=== PATIENT | male | born 1945 | race Caucasian/White ===

== ENCOUNTER 2017-09-05 13:31 | Inpatient (IN) | payer MEDICAID, OTHER ==
[~2017-09-05] VITALS: Ht 165.1 cm; Wt 65.9 kg
--- NOTE | 2017-09-05 16:33 | ERA ---
ER Documentation Chief Complaint Date/Time DATE: 09/05/17 TIME: 16:33 Chief Complaint BROUGHT BY DAUGHTER WITH BS 545, FEVER AND TACHYCARDIA HPI The patient is a 72-year-old male, presenting to the ER because of high blood glucose, fever, tachycardia, generalized weakness today. The history is obtained from the daughter. He denies fever, chills, neck pain, chest pain, abdominal pain, vomiting, dysuria, diarrhea. He had a mechanical fall this morning because of bilateral knee weakness.He complains of right shoulder pain and right knee pain He does not smoke, drinks socially Past medical history: Diabetes mellitus Past surgical history: None ROS All systems reviewed and are negative except as per history of present illness. Allergies Allergies: Coded Allergies: No Known Allergy (Unverified , 09/05/17) Physical Exam Vitals Vital Signs Date Time Temp Pulse Resp B/P Pulse Ox O2 Delivery O2 Flow Rate FiO2 09/05/17 17:28 103.0 119 18 156/81 98 Room Air 09/05/17 14:12 102.0 112 20 139/69 95 Physical Exam Const: No acute distress.Unkempt Head: Atraumatic. Eyes: Normal Conjunctiva. ENT: Normal External Ears, Nose and Mouth. Neck: Full range of motion. No meningismus. Resp: Clear to auscultation bilaterally. Cardio: Regular Tachycardic Abd: Soft, non distended, normal bowel sounds, non tender. Skin: No petechiae or rashes. Back: No midline or flank tenderness. Ext: No cyanosis, or edema.Right shoulder and right knee with limited range of motion due to tenderness Neur: Awake and alert. No focal deficit Psych: Normal Mood and Affect. Result Diagram: 09/05/17 1710 09/05/17 1710 Results 24 hrs Laboratory Tests Test 09/05/17 13:56 09/05/17 16:38 09/05/17 16:54 09/05/17 17:10 Bedside Glucose 545mg/dL 466mg/dL Blood Gas Specimen Source Blood arterial Arterial Blood Date Drawn 09/05/2017 4:58:22 PM Arterial Blood pH (Temp corrected) 7.447 Arterial Blood pCO2 (Temp correct) 23.5mmhg Arterial Blood pO2 (Temp corrected) 72.1mmHG Arterial Blood HCO3 15.9mmol/L Arterial Blood Base Excess -6.2mmol/L Arterial Blood Oxygen Saturation 95.2mmHG Brando Test ACCEPTAB Arterial Blood Gas Puncture Site Left Radial Arterial Blood Carboxyhemoglobin 0.3% Arterial Blood Methemoglobin 0.1% Blood Gas A-a O2 Differential 49.5mmHg Oxyhemoglobin Percent 94.8% Total Hemoglobin 13.9g/dl Blood Gas Temperature 37.0C Blood Gas Modality ROOM AIR FiO2 21.0% Blood Gas Notified Whom [place] Blood Gas Notified Time 09/05/2017 5:03:04 PM White Blood Count 25.210^3/ul Red Blood Count 4.2010^6/ul Hemoglobin 13.1g/dl Hematocrit 36.9% Mean Corpuscular Volume 87.9fl Mean Corpuscular Hemoglobin 31.2pg Mean Corpuscular Hemoglobin Concent 35.5g/dl Red Cell Distribution Width 13.2% Platelet Count 67413^3/UL Mean Platelet Volume 11.7fl Neutrophils % % Segmented Neutrophils % (Manual) 83% Band Neutrophils % (Manual) 4% Lymphocytes % % Lymphocytes % (Manual) 2% Monocytes % % Monocytes % (Manual) 11% Eosinophils % % Basophils % % Nucleated Red Blood Cells % 0.0/100WBC Neutrophils # 10^3/ul Neutrophils # (Manual) 21.210^3/ul Band Neutrophils # 1.010^3/ul Absolute Lymphocytes (Manual) 0.510^3/ul Lymphocytes # 10^3/ul Monocytes # 10^3/ul Absolute Monocytes (Manual) 2.710^3/ul Eosinophils # 10^3/ul Basophils # 10^3/ul Nucleated Red Blood Cells # 10^3/ul Platelet Estimate NORMAL Prothrombin Time 14.9Sec Prothrombin Time Ratio 1.2 INR International Normalized Ratio 1.16 Activated Partial Thromboplast Time 38.9Sec Sodium Level 119mmol/L Potassium Level 5.0mmol/L Chloride Level 85mmol/L Carbon Dioxide Level 20mmol/L Anion Gap 19 Blood Urea Nitrogen 31mg/dl Creatinine 1.16mg/dl Glucose Level 518mg/dl Calcium Level 8.7mg/dl Phosphorus Level 3.0mg/dl Magnesium Level 1.7mg/dl Total Bilirubin 0.4mg/dl Direct Bilirubin 0.00mg/dl Indirect Bilirubin 0.4mg/dl Aspartate Amino Transf (AST/SGOT) 41IU/L Alanine Aminotransferase (ALT/SGPT) 42IU/L Alkaline Phosphatase 152IU/L Troponin I 0.022ng/ml Total Protein 7.3g/dl Albumin 3.7g/dl Globulin 3.60g/dl Albumin/Globulin Ratio 1.02 Test 09/05/17 18:01 09/05/17 18:22 Lactic Acid Level 2.9mmol/L Bedside Urine pH (LAB) 5.0 Bedside Urine Protein (LAB) 2+ Bedside Urine Glucose (UA) 0.50% Bedside Urine Ketones (LAB) 2+ Bedside Urine Blood 3+ Bedside Urine Nitrite (LAB) Negative Bedside Urine Leukocyte Esterase (L Negative Current Medications Medications (Trade) Dose Ordered Sig/Parker Route PRN Reason Start Time Stop Time Status Last Admin Dose Admin Sodium Chloride (NS) 2,110 ml @ 2,110 mls/hr BOLUS X1 ONCE IV 09/05/17 17:00 09/05/17 17:59 DC 09/05/17 17:27 Acetaminophen 650 mg 650 mg ONCE ONCE PO 09/05/17 17:00 09/05/17 17:01 DC 09/05/17 17:27 Piperacillin Sod/ Tazobactam Sod 100 ml @ 200 mls/hr ONCE ONCE IVPB 09/05/17 18:00 09/05/17 18:29 DC Vancomycin HCl (Vancocin) 250 ml @ 125 mls/hr ONCE IVPB 09/05/17 18:00 09/05/17 19:59 Insulin Human Lispro (Humalog) 14 unit ONCE STAT SC 09/05/17 17:56 09/05/17 18:28 DC Procedures/[place] [address] Radiology Main Line: [phone] DIAGNOSTIC IMAGING REPORT Patient: BECKIE GILBERT : 1945 Age: 72 Sex: M MR #: [id number] DOS: 09/05/17 1638 Ordering MD: CHADWICK ADAN MD Location: E/R Room/Bed: PROCEDURE: XR Chest. CLINICAL INDICATION: Possible Sepsis TECHNIQUE: Single frontal view of the chest was obtained. COMPARISON: None available FINDINGS: The cardiomediastinal silhouette is normal size. Pulmonary vasculature is within normal limits. There are probable small calcified granulomas in the right lower lung. There is mild aortic calcification.. No signs of pleural fluid or pneumothorax are seen. The osseous structures and soft tissues are unremarkable. IMPRESSION: Mild aortic calcification. No visualized consolidation or edema. Probable calcified granulomas in the right lower lung. RPTAT: DD .Anthony Denney MD, MD Date Time Electronically viewed and signed by .Anthony Denney MD, on 09/05/2017 17:28 .T/ CC: CHADWICK ADAN MD EKG: Read by emergency physician Rate/Rhythm: Sinus tachycardia 130 beats/min QRS, ST, T-waves: No ST elevation, no T inversion Impression: Abnormal MEDICAL MAKING DECISION: The patient is a 72-year-old, presenting with acute severe sepsis, acute hyperosmolar hyperglycemic syndrome, acute hyponatremia ( corrected sodium is 126). He was treated with Tylenol for fever, normosaline 30 mL/kg IV, Zosyn IV, vancomycin IV for acute severe sepsis, 14 units of Humalog subcutaneously for acute HHS with good response. Admit MDM: Patient's infectious symptoms have not stabilized and the patient is at risk of rapid decompensation. The patient will be admitted for careful hydration, antibiotic therapy, and infectious source control. Severe Sepsis criteria: Infectious source: unknown End organ damage indicated by: Lactate > 2.0 mmol/L Sepsis Management: Time of recognition of severe sepsis/septic shock:6:05 pm Within 3 hours of recognition: Blood cultures x 2 before broad-spectrum antibiotics: Yes 30 ml/kg NS bolus completed Initial lactate 2,9 Repeat lactate pending Critical Care: Critical care time 35 minutes excluding billable procedure Emergent fluid management while maintaining close respiratory support. Provision of immediate and broad-spectrum antibiotic therapy. Simultaneous assessment for possible sources in order to direct targeted therapy. Consideration for invasive and chemical support to prevent cardiopulmonary collapse. Septic Shock Assessment: Any lactic acid > 4.0 no Persistent hypotension (SBP < 90 or 40 mmHg drop, MAP < 65) despite 30 mL/kg IV fluid bolusno Departure Diagnosis: Primary Impression: Severe sepsis Additional Impressions: Hyperglycemic hyperosmolar nonketotic coma Acute hyponatremia Anemia Condition: Stable Additional Instructions: I discussed the findings with the patient. I discussed the patient with the on- call hospitalist Dr. Duran at 6:20 PM who was made aware of the lab, the treatment, the patient condition. The patient is admitted to laboratory The patient's blood pressure was elevated (>120/80) but appears stable without evidence of hypertension emergency or urgency. The patient was counseled about the risks of hypertension and urged to pursue outpatient monitoring and therapy within a week with their primary care physician. CHADWICK ADAN MD Sep 05, 2017 16:33
[2017-09-05] MEDS ORDERED: SOD CHLORIDE 0.9% 2,110 ML IV ONE (17:00)
[2017-09-05] MEDS ORDERED: ACETAMINOPHEN 325 MG TAB PO ONE (17:00)
[2017-09-05 17:03] LABS: AADO2 Arterial 49.5 mmHg (7.0-24.0); Allen Test ACCEPTAB; Arterial Base Excess -6.2 mmol/L (-3.0-3); Arterial COHb 0.3 % (0.0-3.0); Arterial Fraction of Oxyhgb 94.8 % (93.0-99.0); Arterial HCO3 15.9 mmol/L (22.0-26.0); Arterial MetHb 0.1 % (0.0-1.5); Arterial Total Hemglobin 13.9 g/dl (12.0-18.0); MODE ROOM AIR
[2017-09-05 17:24] LABS: ABNORMAL IP MESSAGE 1; HEMATOCRIT 36.9 % (42.0-52.0); HEMOGLOBIN 13.1 g/dl (14.0-18.0); MEAN CORPUSCULAR HEMOGLOBIN 31.2 pg (29.0-33.0); MEAN CORPUSCULAR HGB CONC 35.5 g/dl (32.0-37.0); MEAN CORPUSCULAR VOLUME 87.9 fl (82.0-101.0); MEAN PLATELET VOLUME 11.7 fl (7.4-10.4); PLATELET COUNT 194 10^3/UL (140-415); POSITIVE DIFF @See below; RED CELL DISTRIBUTION WIDTH 13.2 % (11.5-14.5); WHITE BLOOD COUNT 25.2 10^3/ul (4.8-10.8)
--- NOTE | 2017-09-05 17:28 | RADRPT ---
PROCEDURE: XR Chest. CLINICAL INDICATION: Possible Sepsis TECHNIQUE: Single frontal view of the chest was obtained. COMPARISON: None available FINDINGS: The cardiomediastinal silhouette is normal size. Pulmonary vasculature is within normal limits. Th ere are probable small calcified granulomas in the right lower lung. There is mild aortic calcificat ion.. No signs of pleural fluid or pneumothorax are seen. The osseous structures and soft tissues are unre markable. IMPRESSION: Mild aortic calcification. No visualized consolidation or edema. Probable calcified granulomas in th e right lower lung. RPTAT: DD .Anthony Denney MD, Date Time Electronically viewed and signed by .Anthony Denney MD, on 09/05/2017 17:28 .T/
[2017-09-05 17:43] LABS: ALBUMIN 3.7 g/dl (3.3-4.9); ALBUMIN/GLOBULIN RATIO 1.02; BILIRUBIN,INDIRECT 0.4 mg/dl (0-1.1); BILIRUBIN,TOTAL 0.4 mg/dl (0.2-1.3); CALCIUM 8.7 mg/dl (8.4-10.2); CREATININE 1.16 mg/dl (0.61-1.24); MAGNESIUM 1.7 mg/dl (1.7-2.5); TOTAL PROTEIN 7.3 g/dl (6.1-8.1)
[2017-09-05 17:48] LABS: MONOCYTES % (M) 11 % (0-11); PLATELET ESTIMATE NORMAL
[2017-09-05 17:54] LABS: TROPONIN-I 0.022 ng/ml (0.00-0.12)
[2017-09-05] MEDS ORDERED: INSULIN LISPRO 100 UNIT/ML VIAL SC STA (17:56)
[2017-09-05] MEDS ORDERED: PIPER-TAZO 3.375 GM IV (PMX) 100 ML IVPB ONE (18:00)
[2017-09-05] MEDS ORDERED: VANCOMYCIN 1 GM (PMX) 250 ML IVPB SCH (18:00)
[2017-09-05 18:09] LABS: INR 1.16; PARTIAL THROMBOPLASTIN TIME 38.9 Sec (25.0-35.0); PROTIME 14.9 Sec (12.2-14.2); PT RATIO 1.2
[2017-09-05 18:15] LABS: URINE BLOOD (Dip) POC 3+ (NEGATIVE)
[2017-09-05] MEDS: SOD CHLORIDE 0.9% 1,000 ML IV SCH (18:31)
--- NOTE | 2017-09-05 18:33 | RADRPT ---
PROCEDURE: XR shoulder, right. CLINICAL INDICATION: pain TECHNIQUE: internal and external rotation views and scapular Y of the right shoulder were performe d. COMPARISON: None. FINDINGS: There is normal osseous mineralization and alignment. No fracture or osseous lesion is identified. T here is normal alignment of the glenohumeral and acromioclavicular joints. There is a mild acromiocl avicular degenerative change. The soft tissues are unremarkable. There are calcified granulomas in t he right lower lung. IMPRESSION: No visualized fracture or dislocation. Mild acromioclavicular degenerative change. RPTAT: DD .Anthony Denney MD, MD Date Time Electronically viewed and signed by .Anthony Denney MD, on 09/05/2017 18:33 .T/
--- NOTE | 2017-09-05 18:34 | RADRPT ---
PROCEDURE: XR Knee. CLINICAL INDICATION: pain TECHNIQUE: AP, lateral and oblique view of the right knee were obtained. The images reviewed on a PACS workstation. COMPARISON: None. FINDINGS: The bones appear intact, with no evidence of fracture, erosion, demineralization, or dislocation. Th e alignment of the femorotibial and patellofemoral joints appears normal. There is mild to moderate medial femoral tibial joint space narrowing. No evidence of effusion or soft tissue swelling is pres ent. There is peripheral arterial calcification. IMPRESSION: No visualized acute fracture or dislocation. Mild to moderate medial femoral tibial compartment dege nerative joint space narrowing. Peripheral vascular calcification. RPTAT: DD .Anthony Denney MD, MD Date Time Electronically viewed and signed by .Anthony Denney MD, on 09/05/2017 18:34 .T/
[2017-09-05] MEDS ORDERED: GLUCAGON 1 MG INJ IM PRN ×2 (19:00→21:00)
[2017-09-05] MEDS ORDERED: ONDANSETRON 4 MG INJ IV PRN (19:00)
[2017-09-05] MEDS ORDERED: ALBUTEROL/IPRATROPIUM (NEB) 3 ML AMP HHN PRN (19:00)
[2017-09-05] MEDS ORDERED: VANCOMYCIN IV PER PHARMACY XX SCH (19:00)
[2017-09-05] MEDS ORDERED: NA PHOSPHATE/BIPHOS 133 ML ENEMA PR PRN (19:00)
[2017-09-05] MEDS ORDERED: GLUCOSE GEL 15 GRAM TUBE BUCCAL PRN ×2 (19:00→21:00)
[2017-09-05] MEDS: INSULIN GLARGINE [LANtus] 3 ML PEN SC SCH ×2 (19:00→20:00)
[2017-09-05] MEDS ORDERED: GLUCOSE GEL 15 GRAM TUBE PO PRN ×4 (19:00→21:00)
[2017-09-05] MEDS ORDERED: DOCUSATE SODIUM 100 MG CAP PO PRN (19:00)
[2017-09-05] MEDS ORDERED: hydrALAzine 20 MG INJ IV PRN (19:00)
[2017-09-05] MEDS ORDERED: MAGNESIUM HYDROXIDE 30ML CUP PO PRN (19:00)
[2017-09-05] MEDS ORDERED: NITROGLYCERIN (SL) 0.4 MG TAB SL PRN (19:00)
[2017-09-05] MEDS ORDERED: LORAZEPAM 2 MG INJ IV PRN (19:00)
[2017-09-05] MEDS ORDERED: NACL 0.9% 3 ML SYG IV SCH (19:00)
[2017-09-05] MEDS ORDERED: DEXTROSE 50% 50 ML SYRINGE IV PRN ×4 (19:00→21:00)
[2017-09-05] MEDS: INSULIN ASPART [NOVOLOG] 3 ML PEN SC SCH (21:00)
[2017-09-05 21:18] VITALS: TEMP 99.9
[2017-09-05 21:35] VITALS: BP 144/70; PULSE 100; PULSE 120; RESP 18
[2017-09-05 21:37] VITALS: Ht 165.1 cm; Wt 65.9 kg
--- NOTE | 2017-09-05 22:13 | HP ---
DATE OF ADMISSION: 09/05/2017 CHIEF COMPLAINT: Weakness, fever. HISTORY OF PRESENT ILLNESS: A 72-year-old male, past medical history of type 2 diabetes and high cholesterol who was brought in by family because of weakness and fever. Apparently, the patient had hurt his right shoulder 2 days ago prior to admission after trying to pull at something, he has been complaining of right shoulder pain and also right knee pain. He has also been having positive chills, questionable palpitations, denies any fevers, no chest pain. No nausea, vomiting, no diarrhea. No constipation. No abdominal pain. No headaches or dizziness. When he came in, he was found to have multiple problems including a very low sodium of 119. His white count was elevated at 25.2 with sugars were elevated in the 500 range although the bicarb was low normal range. No significant gap noted. The patient appeared to be dehydrated as well and was given insulin, antibiotics and fluids in the ER. PAST MEDICAL HISTORY: As stated above. ALLERGIES: NO KNOWN DRUG ALLERGIES. MEDICATIONS: None. PAST SURGICAL HISTORY: None. SOCIAL HISTORY: Negative for smoking, drinking, IV drug abuse. PHYSICAL EXAMINATION: VITAL SIGNS: T-max 103.0, pulse 112-119, respirations 18-20, blood pressure 139 to 156 systolic over 69 to 81 diastolic, satting at 95 percent on room air. GENERAL: The patient is lying in bed, answering questions, but appears lethargic. Family at bedside. HEENT: Pupils equal, round, react to light. EOMS intact. NECK: Supple. No thyromegaly. LUNGS: Clear to auscultation bilaterally. CARDIOVASCULAR: Tachycardic heart rate. No rubs or gallops. ABDOMEN: Soft, nontender, nondistended. Normal bowel sounds. No rebound or guarding. MUSCULOSKELETAL: No lower extremity edema bilaterally. NEUROLOGIC: No focal deficits. LABS: WBC 25.2, hemoglobin 13.1, hematocrit 36.9, platelets 194, sodium 119, potassium 5.0 chloride 85, CO2 20, BUN 31, creatinine 1.16, glucose 518. UA shows 2+ ketones, but negative nitrites, negative leukocyte esterase. ABG was performed, shows pH 7.44, pCO2 23, PaO2 of 72, bicarb of 15.9. There was a right knee x-ray that shows no acute fractures or dislocations. There is mild to moderate medial femoral tibial compartment degenerative joint space narrowing and peripheral vascular calcification. There was a shoulder x-ray that shows no visualized fracture or dislocation but there is mild acromioclavicular degenerative changes and there was a chest x-ray that shows mild aortic calcification. No visualized consolidation or edema, probable calcified granuloma in the right lower lung. ASSESSMENT AND PLAN: 72-year-old male coming in with severe sepsis, hyponatremia, and very elevated blood sugars. 1. Severe sepsis, again unclear source of patient's fevers and leukocytosis as the UA appears to be negative, chest x-ray does not give a clear indication of pneumonia. In any event, we will admit the patient. Check TSH, A1c, and lipid panel. Put him on broad-spectrum antibiotics for now, try to find a source. We will get an ID consult. Give him IV fluids as well. 2. Hyponatremia. Will give him aggressive normal saline IV fluid hydration. Monitor sodium levels very carefully. 3. Elevated blood sugars. Again, check A1c, put him on Lantus 25 units and also monitor insulin sliding scale. As well follow up A1c. 4. History of diabetes. Again, see number 3. 5. High cholesterol. Check lipid panel as well. 6. Deep vein thrombosis prophylaxis. Heparin subcutaneous. 7. Consider PT consult as well. Dictated By: Malachi Duran MD /[email or web address] /Document#: [id number]
[2017-09-05] MEDS: HEPARIN 5,000 UNIT/0.5 ML VIAL SC SCH (23:09)
[2017-09-05] MEDS: PIPER-TAZO 3.375 GM IV (PMX) 100 ML IVPB SCH (23:59)
[2017-09-06] VITALS (13 sets, daily range): BP systolic 86–164; BP diastolic 54–82; PULSE 81–120; RESP 17–20
[2017-09-06] MEDS ORDERED: SOD CHLORIDE 0.9% 500 ML IV ONE
[2017-09-06] MEDS: PIPER-TAZO 3.375 GM IV (PMX) 100 ML IVPB SCH ×4 (00:01→23:24)
[2017-09-06] MEDS: INSULIN ASPART [NOVOLOG] 3 ML PEN SC SCH ×8 (01:00→21:00)
[2017-09-06] MEDS: ACCU-CHEK XX SCH (02:00)
[2017-09-06] MEDS: SOD CHLORIDE 0.9% 1,000 ML IV SCH ×4 (03:02→23:24)
[2017-09-06 03:30] LABS: ADD UMIC YES; UR AMORPHOUS CRYSTAL FEW /HPF (NONE SEEN); UR ASCORBIC ACID NEGATIVE (NEGATIVE); UR BACTERIA FEW /HPF (NONE SEEN); UR BILIRUBIN (Dip) NEGATIVE (NEGATIVE); UR BLOOD (Dip) 3+ mg/dL (NEGATIVE); UR BUDDING YEAST MODERATE /HPF (NONE SEEN); UR CLARITY CLOUDY (CLEAR); UR COLOR YELLOW (YELLOW); UR GLUCOSE (Dip) 3+ mg/dL (NEGATIVE); UR KETONES (Dip) TRACE mg/dL (NEGATIVE); UR LEUKOCYTE ESTERASE (Dip) NEGATIVE Leu/ul (NEGATIVE); UR NITRITE (Dip) NEGATIVE (NEGATIVE); UR RBC 3 /HPF (0-5); UR SPECIFIC GRAVITY (Dip) 1.012 (1.003-1.030); UR TOTAL PROTEIN (Dip) 2+ mg/dl (NEGATIVE); UR UROBILINOGEN (Dip) NEGATIVE (NEGATIVE)
[2017-09-06] MEDS: PANTOPRAZOLE (EC) 40 MG TAB PO SCH (05:16)
[2017-09-06] MEDS: morphine 2 MG INJ IV PRN ×4 (07:07→19:56)
[2017-09-06 07:26] LABS: BASOPHILS % 0.1 % (0.0-2.0); HEMATOCRIT 33.7 % (42.0-52.0); HEMOGLOBIN 11.4 g/dl (14.0-18.0); LYMPHOCYTES # 0.7 10^3/ul (0.8-2.9); LYMPHOCYTES % 3.4 % (15.0-51.0); MEAN CORPUSCULAR HEMOGLOBIN 29.5 pg (29.0-33.0); MEAN CORPUSCULAR HGB CONC 33.8 g/dl (32.0-37.0); MEAN CORPUSCULAR VOLUME 87.1 fl (82.0-101.0); MEAN PLATELET VOLUME 10.2 fl (7.4-10.4); MONOCYTE # 1.5 10^3/ul (0.3-0.9); MONOCYTES % 7.2 % (0.0-11.0); NEUTROPHIL # 18.1 10^3/ul (1.6-7.5); NEUTROPHILS % 88.6 % (39.0-77.0); PLATELET COUNT 200 10^3/UL (140-415); POSITIVE DIFF @See below; RED BLOOD COUNT 3.87 10^6/ul (4.70-6.10); RED CELL DISTRIBUTION WIDTH 13.2 % (11.5-14.5); WHITE BLOOD COUNT 20.5 10^3/ul (4.8-10.8)
[2017-09-06 07:54] LABS: CHOL/HDL RATIO 3.8 RATIO
[2017-09-06 07:58] LABS: CALCIUM 7.7 mg/dl (8.4-10.2); CREATININE 1.14 mg/dl (0.61-1.24); MAGNESIUM 1.7 mg/dl (1.7-2.5); PHOSPHORUS 2.3 mg/dl (2.5-4.9); POTASSIUM 3.7 mmol/L (3.5-5.1)
[2017-09-06 08:21] LABS: THYROID STIMULATING HORMONE 1.33 MIU/L (0.465-4.680)
[2017-09-06] MEDS: HEPARIN 5,000 UNIT/0.5 ML VIAL SC SCH ×2 (08:23→21:38)
[2017-09-06] MEDS: ACETAMINOPHEN 325 MG TAB PO PRN (08:44)
--- NOTE | 2017-09-06 11:31 | PN ---
Date/Time of Note Date/Time of Note DATE: 09/06/17 TIME: 11:26 Assessment/Plan VTE Prophylaxis VTE Prophylaxis Intervention: heparin Lines/Catheters IV [facility] [place] [facility] Urinary Cath still in place: No Assessment/Plan Chief Complaint/Hosp Course ASSESSMENT AND PLAN: 72-year-old male coming in with severe sepsis, hyponatremia, and very elevated blood sugars. 1. Severe sepsis, again unclear source of patient's fevers and leukocytosis as the UA appears to be negative, chest x-ray does not give a clear indication of pneumonia. However blood cultures are 2 out of 2 bottles positive for gram-positive cocci. -Continue broad-spectrum antibiotics -Pending ID consult. Continue IV fluids as well. 2. Hyponatremia - improved (119-> 127) -Continue aggressive normal saline IV fluid hydration. Monitor sodium levels very carefully. 3. Elevated blood sugars -A1c equals 12.9 -Continue Lantus 25 units and insulin sliding scale. -Also add short acting insulin 8 units with meals 4. History of diabetes. Again, see number 3. 5. High cholesterol. Follow-up lipid panel as well. 6. Deep vein thrombosis prophylaxis. Heparin subcutaneous. 7. Follow-up PT consult as well. Problems: Subjective 24 Hr Interval Summary Free Text/Dictation Patient had temperature 100.0 last night. Otherwise no acute events overnight. Exam/Review of Systems Vital Signs Vitals Vital Signs Date Time Temp Pulse Resp B/P Pulse Ox O2 Delivery O2 Flow Rate FiO2 09/06/17 09:43 97.4 96 09/06/17 08:25 Nasal Cannula 2.0 09/06/17 07:17 18 99/56 100 Intake and Output 09/05/17 09/05/17 09/06/17 15:00 23:00 07:00 Intake Total 500 ml Output Total 800 ml Balance -300 ml Exam GENERAL: The patient is lying in bed, answering questions HEENT: Pupils equal, round, react to light. EOMS intact. NECK: Supple. No thyromegaly. LUNGS: Clear to auscultation bilaterally. CARDIOVASCULAR: S1, S2 heard, no rubs or gallops. ABDOMEN: Soft, nontender, nondistended. Normal bowel sounds. No rebound or guarding. MUSCULOSKELETAL: No lower extremity edema bilaterally. NEUROLOGIC: No focal deficits. Results Result Diagram: 09/06/1770009/06/1701 Results 24 hrs Laboratory Tests Test 09/05/17 13:56 09/05/17 16:38 09/05/17 16:54 09/05/17 17:10 Bedside Glucose 545 *H 466 *H Blood Gas Specimen Source Blood arterial Arterial Blood Date Drawn 09/05/2017 4:58:22 PM Arterial Blood pH (Temp corrected) 7.447 Arterial Blood pCO2 (Temp correct) 23.5 L Arterial Blood pO2 (Temp corrected) 72.1 L Arterial Blood HCO3 15.9 L Arterial Blood Base Excess -6.2 L Arterial Blood Oxygen Saturation 95.2 Brando Test ACCEPTAB Arterial Blood Gas Puncture Site Left Radial Arterial Blood Carboxyhemoglobin 0.3 Arterial Blood Methemoglobin 0.1 Blood Gas A-a O2 Differential 49.5 H Oxyhemoglobin Percent 94.8 Total Hemoglobin 13.9 Blood Gas Temperature 37.0 Blood Gas Modality ROOM AIR FiO2 21.0 Blood Gas Notified Whom [place] Blood Gas Notified Time 09/05/2017 5:03:04 PM White Blood Count 25.2 H Red Blood Count 4.20 L Hemoglobin 13.1 L Hematocrit 36.9 L Mean Corpuscular Volume 87.9 Mean Corpuscular Hemoglobin 31.2 Mean Corpuscular Hemoglobin Concent 35.5 Red Cell Distribution Width 13.2 Platelet Count 194 Mean Platelet Volume 11.7 H Neutrophils % Segmented Neutrophils % (Manual) 83 H Band Neutrophils % (Manual) 4 Lymphocytes % Lymphocytes % (Manual) 2 L Monocytes % Monocytes % (Manual) 11 Eosinophils % Basophils % Nucleated Red Blood Cells % 0.0 Neutrophils # Neutrophils # (Manual) 21.2 H Band Neutrophils # 1.0 H Absolute Lymphocytes (Manual) 0.5 L Lymphocytes # Monocytes # Absolute Monocytes (Manual) 2.7 H Eosinophils # Basophils # Nucleated Red Blood Cells # Platelet Estimate NORMAL Prothrombin Time 14.9 H Prothrombin Time Ratio 1.2 INR International Normalized Ratio 1.16 Activated Partial Thromboplast Time 38.9 H Sodium Level 119 *L Potassium Level 5.0 Chloride Level 85 L Carbon Dioxide Level 20 L Anion Gap 19 H Blood Urea Nitrogen 31 H Creatinine 1.16 Glucose Level 518 *H Calcium Level 8.7 Phosphorus Level 3.0 Magnesium Level 1.7 Total Bilirubin 0.4 Direct Bilirubin 0.00 Indirect Bilirubin 0.4 Aspartate Amino Transf (AST/SGOT) 41 Alanine Aminotransferase (ALT/SGPT) 42 Alkaline Phosphatase 152 H Troponin I 0.022 Total Protein 7.3 Albumin 3.7 Globulin 3.60 H Albumin/Globulin Ratio 1.02 Test 09/05/17 18:01 09/05/17 18:22 09/05/17 19:14 09/05/17 19:46 Lactic Acid Level 2.9 *H 1.5 Bedside Urine pH (LAB) 5.0 Bedside Urine Protein (LAB) 2+ H Bedside Urine Glucose (UA) 0.50% H Bedside Urine Ketones (LAB) 2+ H Bedside Urine Blood 3+ H Bedside Urine Nitrite (LAB) Negative Bedside Urine Leukocyte Esterase (L Negative Bedside Glucose 359 H Free Thyroxine 0.93 Test 09/05/17 21:02 09/05/17 22:24 09/05/17 22:50 09/06/17 00:01 Bedside Glucose 259 H 229 H Lactic Acid Level 3.7 *H 1.7 Test 09/06/17 00:30 09/06/17 01:16 09/06/17 05:10 09/06/17 06:57 Urine Color YELLOW Urine Clarity CLOUDY A Urine pH 5.0 Urine Specific Beat[place] 1.012 Urine Ketones TRACE A Urine Nitrite NEGATIVE Urine Bilirubin NEGATIVE Urine Urobilinogen NEGATIVE Urine Leukocyte Esterase NEGATIVE Urine Microscopic RBC 3 Urine Microscopic WBC 5 Urine Amorphous Crystals FEW A Urine Bacteria FEW A Urine Yeast (Budding) MODERATE A Urine Hemoglobin 3+ H Urine Glucose 3+ H Urine Total Protein 2+ H Bedside Glucose 138 113 Hemoglobin A1c 12.9 H Test 09/06/17 07:01 09/06/17 08:43 White Blood Count 20.5 H Red Blood Count 3.87 L Hemoglobin 11.4 L Hematocrit 33.7 L Mean Corpuscular Volume 87.1 Mean Corpuscular Hemoglobin 29.5 Mean Corpuscular Hemoglobin Concent 33.8 Red Cell Distribution Width 13.2 Platelet Count 200 Mean Platelet Volume 10.2 Neutrophils % 88.6 H Lymphocytes % 3.4 L Monocytes % 7.2 Eosinophils % 0.0 Basophils % 0.1 Nucleated Red Blood Cells % 0.0 Neutrophils # 18.1 H Lymphocytes # 0.7 L Monocytes # 1.5 H Eosinophils # 0.0 Basophils # 0.0 Nucleated Red Blood Cells # 0.0 Sodium Level 127 L Potassium Level 3.7 Chloride Level 100 # Carbon Dioxide Level 24 Anion Gap 7 #L Blood Urea Nitrogen 26 H Creatinine 1.14 Glucose Level 110 # Lactic Acid Level 1.3 Calcium Level 7.7 L Phosphorus Level 2.3 L Magnesium Level 1.7 Triglycerides Level 96 Cholesterol Level 84 L LDL Cholesterol, Calculated 43 HDL Cholesterol 22 L Cholesterol/HDL Ratio 3.8 Thyroid Stimulating Hormone (TSH) 1.330 Bedside Glucose 124 Medications Medications Current Medications Ondansetron HCl (Zofran Inj) 4 mg Q6H PRN IV NAUSEA AND/OR VOMITING; Start 09/05/17 at 19:00 Acetaminophen (Tylenol Tab) 650 mg Q6H PRN PO PAIN LEVEL 1-3 OR FEVER Last administered on 09/06/17 08:44; Admin Dose 650 MG; Start 09/05/17 at 19:00 Acetaminophen/ Hydrocodone Bitart ([place] (5/325)) 1 tab Q6H PRN PO MODERATE PAIN LEVEL 4-6; Start 09/05/17 at 19:00 Morphine Sulfate (morphine) 2 mg Q4H PRN IV SEVERE PAIN LEVEL 7-10 Last administered on 09/06/17 07:07; Admin Dose 2 MG; Start 09/05/17 at 19:00 Docusate Sodium (Colace) 100 mg Q12H PRN PO CONSTIPATION; Start 09/05/17 at 19: 00 Magnesium Hydroxide (Milk Of Mag) 30 ml DAILY PRN PO CONSTIPATION; Start at 19:00 Sodium Biphosphate/ Sodium Phosphate (Fleet Enema) 133 ml DAILY PRN [place] CONSTIPATION; Start 09/05/17 at 19:00 Pantoprazole (Protonix Tab) 40 mg DAILY@06 PO Last administered on 09/06/17 05:16; Admin Dose 40 MG; Start 09/06/17 at 06:00 Heparin Sodium (Porcine) (Heparin (5000 Units/0.5 ml)) 5,000 unit Q12 SC Last administered on 09/06/17 08:23; Admin Dose 5,000 UNIT; Start 09/05/17 at 21:00 Lorazepam 0.5 mg 0.5 mg Q6H PRN IV ANXIETY; Start 09/05/17 at 19:00 Sodium Chloride 1,000 ml @ 100 mls/hr Q10H IV Last administered on 09/06/17 08:24; Admin Dose 100 MLS/HR; Start 09/05/17 at 18:31 Piperacillin Sod/ Tazobactam Sod (Zosyn 3.375gm/ 100 ml (Pmx)) 100 ml @ 200 mls /hr Q6 IVPB Last administered on 09/06/17 00:01; Admin Dose 200 MLS/HR; Start 09/06/17 at 00:00 Vancomycin HCl (Vanco Iv Per Pharmacy) VANCOMYCIN PER PHARMACY NOTE XX ; Start 09/05/17 at 19:00 Hydralazine HCl (Apresoline) 10 mg Q6H PRN IV ELEVATED BLOOD PRESSURE; Start 09/05/17 at 19:00 Clonidine (Catapres) 0.1 mg Q6H PRN PO ELEVATED BLOOD PRESSURE; Start 09/05/17 at 19:00 Nitroglycerin (Nitroglycerin (Sl Tab) 0.4 Mg) 1 tab Q5M PRN SL ANGINA; Start 09/05/17 at 19:00 Diagnostic Test (Pha) (Accu-Chek) 1 ea 02 XX ; Start 09/06/17 at 02:00 Insulin Aspart (Novolog Insulin Pen) NOVOLOG *MODERATE* ALGORI... Q4 SC Last administered on 09/05/17 21:00; Admin Dose 6 UNIT; Start 09/05/17 at 21:00 Insulin Glargine (Lantus) 25 unit DAILY@20 SC Last administered on 09/05/17 20 :00; Admin Dose 25 UNIT; Start 09/05/17 at 19:00 Miscellaneous Information 1 ea NOTE XX ; Start 09/05/17 at 21:00 Glucose (Glutose) 15 gm Q15M PRN PO DECREASED GLUCOSE; Start 09/05/17 at 21:00 Glucose (Glutose) 22.5 gm Q15M PRN PO DECREASED GLUCOSE; Start 09/05/17 at 21: 00 Dextrose (D50w Syringe) 25 ml Q15M PRN IV DECREASED GLUCOSE; Start 09/05/17 at 21:00 Dextrose (D50w Syringe) 50 ml Q15M PRN IV DECREASED GLUCOSE; Start 09/05/17 at 21:00 Glucagon (Glucagen) 1 mg Q15M PRN IM DECREASED GLUCOSE; Start 09/05/17 at 21:00 Glucose 15 gm 15 gm Q15M PRN BUCCAL DECREASED GLUCOSE; Start 09/05/17 at 21:00 Vancomycin HCl 1.25 gm/Sodium Chloride 250 ml @ 83.333 mls/ hr Q24H IVPB ; Start 09/06/17 at 18:00 Potassium Phosphate 20 meq/ Sodium Chloride 254.5455 ml @ 63.636 m... ONCE ONCE IVPB ; Start 09/06/17 at 11:30; Stop 09/06/17 at 15:29; Status UNV Fluconazole/ Sodium Chloride (Diflucan 100 Mg/ NS (Pmx)) 50 ml @ 50 mls/hr Q24H IVPB ; Start 09/06/17 at 11:30; Status NIKV KULDEEP SALDIVAR Sep 06, 2017 11:31
[2017-09-06] MEDS ORDERED: POTASSIUM PHOSPHATE 20 MEQ in SOD CHLORIDE 0.9% 250 ML IVPB ONE (12:00)
[2017-09-06] MEDS: FLUCONAZOLE 100 MG/NS (PMX) 50 ML IVPB SCH (12:31)
--- NOTE | 2017-09-06 16:30 | CONS ---
DATE OF ADMISSION: 09/05/2017 DATE OF CONSULTATION: 09/06/2017 INFECTIOUS DISEASE CONSULTATION REASON FOR CONSULTATION: Antibiotic management. HISTORY OF PRESENT ILLNESS: Alexi Lara is a 72-year-old male who was brought in with fever and weakness and is being seen for antibiotic management. Past problems include: 1. Adult-onset diabetes mellitus. 2. Hypercholesterolemia. Acutely, the patient hurt his right shoulder 2 days prior to admission and has been complaining of r ight shoulder and knee pain. He has positive chills. No nausea, vomiting. No constipation or abdo mirlande pain; however, on admission, his sodium was very low at 119, white count was 25.2 and his suga rs were greater than 500. He appeared to be dehydrated, was given insulin, antibiotics and fluids. On admission, his white count was 25.2, H and H of 13.1 and 36.9, platelet count 194,000, sodium 11 9, potassium 5.0, BUN and creatinine was 31/1.16. Urinalysis shows 2+ ketones, negative nitrites, n egative leukocyte esterase. There was a right knee x-ray that shows no acute fractures or dislocati ons. There is [id number] medial femoral tibial compartment degenerative joint space narrowing and peripheral vascular calcifications. Shoulder x-ray shows no visualized fracture or dislocation . PAST MEDICAL HISTORY: Operations as outlined. FAMILY HISTORY: Noncontributory. SOCIAL HISTORY: Does not smoke, drink or abuse drugs. ALLERGIES: NONE TO PENICILLIN, SULFA OR FOODS. MEDICATIONS: Per chart. REVIEW OF SYSTEMS: As per HPI. PHYSICAL EXAMINATION: GENERAL: The patient is an elderly appearing male who is awake, responsive, in no acute distress. VITAL SIGNS: Stable. T-max 103. SKIN: Without generalized rash. HEENT: Within normal limits. NECK: Supple. LYMPH NODES: None palpable. CHEST: Decreased breath sounds at the bases. HEART: Without murmur or gallop. ABDOMEN: Soft, nontender, without organosplenomegaly or masses. EXTREMITIES: Without cyanosis, clubbing or edema. RECTAL AND GENITAL: Deferred. NEUROLOGIC: No focal neurological abnormalities. IMPRESSION AND PLAN: The patient comes in now with severe sepsis with a temperature of 103, white c ount of 25.2 and severe hyponatremia. His urinalysis is negative. Chest x-ray does not give a kaity r indication of pneumonia, hyponatremia, rule out inappropriate antidiuretic hormone secretion. He was given aggressive normal saline. He was placed on Lantus insulin for his diabetes. Microbiology is now growing gram-positive cocci in pairs and clusters, consistent with most likely pneumonia, al though there is no clear-cut source of pneumonia. We have to consider the possibility of endocardit is as well. We will see if that is ordered, if not, we will do so. White count today is 20.5. The patient is on vancomycin and Zosyn. I will dictate my findings to the hospitalist. Dictated By: BJ HORNE MD, JD/NTS Conf#: [id number] DID#: [id number] CC: KULDEEP SALDIVAR;*Van*
[2017-09-06] MEDS: VANCOMYCIN 1.25 GM in SOD CHLORIDE 0.9% 250 ML IVPB SCH (18:36)
--- NOTE | 2017-09-06 21:24 | RADRPT ---
PROCEDURE: Noncontrast CT examination of the right shoulder. CLINICAL INDICATION: Severe right shoulder pain. TECHNIQUE: Noncontrast CT examination of the right shoulder, with axial, sagittal and coronal refo rmatted images. CTDI: 32.50 and DLP: 712.92. COMPARISON: Plain film examination of the right shoulder dated 09/05/2017. FINDINGS: Likely chronic tears of the posterior glenoid labrum with dystrophic calcifications. Mild elevation of the humeral head in the glenoid fossa suggests sequela of a chronic rotator cuff tear. There is a joint effusion. There is extensive subcutaneous edema and fluid over the right shoulder, otherwise nonspecific. A contrast enhanced MRI examination of the right shoulder may be of further use. There is no acute fracture or dislocation. Mild pleural effusion in the partially visualized right hemithorax. Small amount of intravenous air is seen over the anterior right shoulder, perhaps representing the s equela of IV access. IMPRESSION: 1. Likely remote rotator cuff tear. 2. Likely remote tears of the posterior glenoid labrum, with dystrophic calcifications. 3. Joint effusion with extensive subcutaneous edema and subcutaneous fluid over the right shoulder. 4. A contrast enhanced MRI examination of the right shoulder may be of further use. 5. There is no evident acute fracture. RPTAT: [facility]U Physician Allan Date Time Electronically viewed and signed by Physician Allan on 09/06/2017 21:23 RS/
[2017-09-06] MEDS: INSULIN GLARGINE [LANtus] 3 ML PEN SC SCH (21:32)
[2017-09-07] VITALS (12 sets, daily range): BP systolic 98–122; BP diastolic 57–78; PULSE 78–100; RESP 16–19
[2017-09-07] MEDS: INSULIN ASPART [NOVOLOG] 3 ML PEN SC SCH ×8 (01:00→22:03)
[2017-09-07] MEDS: ACCU-CHEK XX SCH (02:00)
[2017-09-07] MEDS: PANTOPRAZOLE (EC) 40 MG TAB PO SCH (05:05)
[2017-09-07] MEDS: PIPER-TAZO 3.375 GM IV (PMX) 100 ML IVPB SCH ×4 (05:05→23:34)
[2017-09-07 07:26] LABS: ABNORMAL IP MESSAGE 1; BASOPHILS % 0.2 % (0.0-2.0); EOSINOPHILS % 0.1 % (0.0-7.0); HEMATOCRIT 31.5 % (42.0-52.0); HEMOGLOBIN 10.8 g/dl (14.0-18.0); LYMPHOCYTES # 0.6 10^3/ul (0.8-2.9); LYMPHOCYTES % 2.7 % (15.0-51.0); MEAN CORPUSCULAR HEMOGLOBIN 30.6 pg (29.0-33.0); MEAN CORPUSCULAR HGB CONC 34.3 g/dl (32.0-37.0); MEAN CORPUSCULAR VOLUME 89.2 fl (82.0-101.0); MEAN PLATELET VOLUME 10.5 fl (7.4-10.4); MONOCYTE # 1.5 10^3/ul (0.3-0.9); MONOCYTES % 7.2 % (0.0-11.0); NEUTROPHIL # 18.5 10^3/ul (1.6-7.5); NEUTROPHILS % 88.9 % (39.0-77.0); PLATELET COUNT 204 10^3/UL (140-415); POSITIVE DIFF @See below; RED BLOOD COUNT 3.53 10^6/ul (4.70-6.10); RED CELL DISTRIBUTION WIDTH 13.7 % (11.5-14.5); WHITE BLOOD COUNT 20.8 10^3/ul (4.8-10.8)
[2017-09-07 07:44] LABS: CALCIUM 7.5 mg/dl (8.4-10.2); CREATININE 1.23 mg/dl (0.61-1.24); POTASSIUM 3.5 mmol/L (3.5-5.1)
[2017-09-07] MEDS: HEPARIN 5,000 UNIT/0.5 ML VIAL SC SCH ×2 (08:20→22:06)
[2017-09-07] MEDS: HYDROCODONE/APAP (5/325) TAB PO PRN ×2 (08:30→19:35)
[2017-09-07] MEDS: FLUCONAZOLE 100 MG/NS (PMX) 50 ML IVPB SCH (12:43)
[2017-09-07] MEDS: SOD CHLORIDE 0.9% 1,000 ML IV SCH ×2 (12:55→22:23)
--- NOTE | 2017-09-07 13:24 | PN ---
Date/Time of Note Date/Time of Note DATE: 09/07/17 TIME: 13:19 Assessment/Plan VTE Prophylaxis VTE Prophylaxis Intervention: heparin Lines/Catheters IV [facility] Peripheral IV Urinary Cath still in place: No Assessment/Plan Chief Complaint/Hosp Course ASSESSMENT AND PLAN: 72-year-old male coming in with severe sepsis, hyponatremia, and very elevated blood sugars. 1. Severe sepsis, again unclear source of patient's fevers and leukocytosis as the UA appears to be negative, chest x-ray does not give a clear indication of pneumonia. However blood cultures are 2 out of 2 bottles positive for staph aureus. -Continue broad-spectrum antibiotics -f/u ID consult rec's. - Continue IV fluids as well. 2. Hyponatremia - improved (119-> 127 -> 129) -Continue aggressive normal saline IV fluid hydration. Monitor sodium levels very carefully. 3. Elevated blood sugars -A1c equals 12.9 -Continue Lantus 25 units and now mild insulin sliding scale. - short acting insulin 6 units with meals 4. History of diabetes. Again, see number 3. 5. High cholesterol. Follow-up lipid panel as well. 6. Deep vein thrombosis prophylaxis. Heparin subcutaneous. 7. Right shoulder pain -based on CT scan results, will get MRI of the right shoulder. Problems: Subjective 24 Hr Interval Summary Free Text/Dictation Patient denies chest pain. But is complaining of right shoulder pain. Seen by infectious disease team yesterday. Exam/Review of Systems Vital Signs Vitals Vital Signs Date Time Temp Pulse Resp B/P Pulse Ox O2 Delivery O2 Flow Rate FiO2 09/07/17 12:36 78 09/07/17 11:31 97.8 19 98/57 95 09/07/17 08:20 Nasal Cannula 2.0 Intake and Output 09/06/17 09/06/17 09/07/17 15:00 23:00 07:00 Intake Total 450 ml 921.2055 ml 500 ml Balance 450 ml 921.2055 ml 500 ml Exam GENERAL: The patient is lying in bed, answering questions HEENT: Pupils equal, round, react to light. EOMS intact. NECK: Supple. No thyromegaly. LUNGS: Clear to auscultation bilaterally. CARDIOVASCULAR: S1, S2 heard, no rubs or gallops. ABDOMEN: Soft, nontender, nondistended. Normal bowel sounds. No rebound or guarding. MUSCULOSKELETAL: No lower extremity edema bilaterally. NEUROLOGIC: No focal deficits. Results Result Diagram: 09/07/17 0649 09/07/17 0649 Results 24 hrs Laboratory Tests Test 09/06/17 13:31 09/06/17 17:21 09/06/17 19:03 09/06/17 19:58 Bedside Glucose 258 H 86 91 Lactic Acid Level 2.7 *H Test 09/07/17 04:48 09/07/17 06:49 09/07/17 08:19 09/07/17 11:41 Bedside Glucose 87 74 56 L White Blood Count 20.8 H Red Blood Count 3.53 L Hemoglobin 10.8 L Hematocrit 31.5 L Mean Corpuscular Volume 89.2 Mean Corpuscular Hemoglobin 30.6 Mean Corpuscular Hemoglobin Concent 34.3 Red Cell Distribution Width 13.7 Platelet Count 204 Mean Platelet Volume 10.5 H Neutrophils % 88.9 H Lymphocytes % 2.7 L Monocytes % 7.2 Eosinophils % 0.1 Basophils % 0.2 Nucleated Red Blood Cells % 0.0 Neutrophils # 18.5 H Lymphocytes # 0.6 L Monocytes # 1.5 H Eosinophils # 0.0 Basophils # 0.0 Nucleated Red Blood Cells # 0.0 Sodium Level 129 L Potassium Level 3.5 Chloride Level 104 Carbon Dioxide Level 21 Anion Gap 8 Blood Urea Nitrogen 25 H Creatinine 1.23 Glucose Level 61 #L Calcium Level 7.5 L Test 09/07/17 12:10 09/07/17 12:45 Bedside Glucose 70 106 Medications Medications Current Medications Ondansetron HCl (Zofran Inj) 4 mg Q6H PRN IV NAUSEA AND/OR VOMITING; Start 09/05/17 at 19:00 Acetaminophen (Tylenol Tab) 650 mg Q6H PRN PO PAIN LEVEL 1-3 OR FEVER Last administered on 09/06/17 08:44; Admin Dose 650 MG; Start 09/05/17 at 19:00 Acetaminophen/ Hydrocodone Bitart ([place] (5/325)) 1 tab Q6H PRN PO MODERATE PAIN LEVEL 4-6 Last administered on 09/07/17 08:30; Admin Dose 1 TAB; Start 09/05/17 at 19:00 Morphine Sulfate (morphine) 2 mg Q4H PRN IV SEVERE PAIN LEVEL 7-10 Last administered on 09/06/17 19:56; Admin Dose 2 MG; Start 09/05/17 at 19:00 Docusate Sodium (Colace) 100 mg Q12H PRN PO CONSTIPATION; Start 09/05/17 at 19: 00 Magnesium Hydroxide (Milk Of Mag) 30 ml DAILY PRN PO CONSTIPATION; Start at 19:00 Sodium Biphosphate/ Sodium Phosphate (Fleet Enema) [address] CONSTIPATION; Start 09/05/17 at 19:00 Pantoprazole (Protonix Tab) 40 mg DAILY@06 PO Last administered on 09/07/17 05:05; Admin Dose 40 MG; Start 09/06/17 at 06:00 Heparin Sodium (Porcine) (Heparin (5000 Units/0.5 ml)) 5,000 unit Q12 SC Last administered on 09/07/17 08:20; Admin Dose 5,000 UNIT; Start 09/05/17 at 21:00 Lorazepam 0.5 mg 0.5 mg Q6H PRN IV ANXIETY; Start 09/05/17 at 19:00 Sodium Chloride 1,000 ml @ 100 mls/hr Q10H IV Last administered on 09/07/17 12:55; Admin Dose 100 MLS/HR; Start 09/05/17 at 18:31 Piperacillin Sod/ Tazobactam Sod (Zosyn 3.375gm/ 100 ml (Pmx)) 100 ml @ 200 mls /hr Q6 IVPB Last administered on 09/07/17 12:02; Admin Dose 200 MLS/HR; Start 09/06/17 at 00:00 Vancomycin HCl (Vanco Iv Per Pharmacy) VANCOMYCIN PER PHARMACY NOTE XX ; Start 09/05/17 at 19:00 Hydralazine HCl (Apresoline) 10 mg Q6H PRN IV ELEVATED BLOOD PRESSURE; Start 09/05/17 at 19:00 Clonidine (Catapres) 0.1 mg Q6H PRN PO ELEVATED BLOOD PRESSURE; Start 09/05/17 at 19:00 Nitroglycerin (Nitroglycerin (Sl Tab) 0.4 Mg) 1 tab Q5M PRN SL ANGINA; Start 09/05/17 at 19:00 Diagnostic Test (Pha) (Accu-Chek) 1 ea 02 XX ; Start 09/06/17 at 02:00 Insulin Glargine (Lantus) 25 unit DAILY@20 SC Last administered on 09/06/17 21:32; Admin Dose 25 UNIT; Start 09/05/17 at 19:00 Miscellaneous Information 1 ea NOTE XX ; Start 09/05/17 at 21:00 Glucose (Glutose) 15 gm Q15M PRN PO DECREASED GLUCOSE; Start 09/05/17 at 21:00 Glucose (Glutose) 22.5 gm Q15M PRN PO DECREASED GLUCOSE; Start 09/05/17 at 21: 00 Dextrose (D50w Syringe) 25 ml Q15M PRN IV DECREASED GLUCOSE; Start 09/05/17 at 21:00 Dextrose (D50w Syringe) 50 ml Q15M PRN IV DECREASED GLUCOSE; Start 09/05/17 at 21:00 Glucagon (Glucagen) 1 mg Q15M PRN IM DECREASED GLUCOSE; Start 09/05/17 at 21:00 Glucose 15 gm 15 gm Q15M PRN BUCCAL DECREASED GLUCOSE; Start 09/05/17 at 21:00 Vancomycin HCl 1.25 gm/Sodium Chloride 250 ml @ 83.333 mls/ hr Q24H IVPB Last administered on 09/06/17 18:36; Admin Dose 83.333 MLS/HR; Start 09/06/17 at 18:00 Fluconazole/ Sodium Chloride (Diflucan 100 Mg/ NS (Pmx)) 50 ml @ 50 mls/hr Q24H IVPB Last administered on 09/07/17 12:43; Admin Dose 50 MLS/HR; Start at 12:00 Miscellaneous Information (*Rx Drug Level Order Reminder*) VANCOMYCIN TROUGH AT 1700 ONCE ONCE XX ; Start 09/08/17 at 17:00; Stop 09/08/17 at 17:01 Diagnostic Test (Pha) (Accu-Chek) 1 ea 02 XX ; Start 09/08/17 at 02:00 Cyclobenzaprine HCl (Flexeril) 10 mg TID PO ; Start 09/07/17 at 13:[address] scan right shoulder: IMPRESSION: 1. Likely remote rotator cuff tear. 2. Likely remote tears of the posterior glenoid labrum, with dystrophic calcifications. 3. Joint effusion with extensive subcutaneous edema and subcutaneous fluid over the right shoulder. 4. A contrast enhanced MRI examination of the right shoulder may be of further use. 5. There is no evident acute fracture. KULDEEP SALDIVAR. Sep 07, 2017 13:24
[2017-09-07] MEDS: CYCLOBENZAPRINE 10 MG TAB PO SCH ×2 (15:07→22:02)
[2017-09-07] MEDS: morphine 2 MG INJ IV PRN ×2 (15:09→18:03)
--- NOTE | 2017-09-07 15:56 | PN ---
DATE: 09/07/2017 INFECTIOUS DISEASE PROGRESS NOTE SUBJECTIVE: The patient is sleeping, arousable, denies pain, no fevers. He is diaphoretic but in no distress. VITAL SIGNS: Temperature 97.8, pulse 80, respirations 20, blood pressure 98/57 , saturation 95% on 2 liters. LABORATORY DATA: WBC 20.8, platelets 204, neutrophils 88.9, BUN 25, creatinine 1.23. MICROBIOLOGY: Blood culture growing Staphylococcus aureus preliminary. Urine culture negative. DIAGNOSTICS: Right shoulder joint effusion with extensive subcutaneous edema and subcutaneous fluid over the right shoulder. No evidence of acute fracture. Chest x-ray on admission revealed no consolidation or edema, probable calcified granulomas in the right lower lung. ANTIMICROBIALS: The patient is on: 1. Vancomycin. 2. Fluconazole. 3. Zosyn. PHYSICAL EXAMINATION: GENERAL: This is a well-developed, well-nourished elderly man who is in no distress. HEENT: Head atraumatic, normocephalic. Sclerae anicteric. Buccal mucosa dry. NECK: Supple. CHEST: Rise symmetrical. Breath sounds diminished to bases. HEART: S1, S2. ABDOMEN: Soft. Bowel tones present. EXTREMITIES: With right shoulder edema and pain on palpation. ASSESSMENT: 1. Severe sepsis with fevers and leukocytosis. 2. Bacteremia, blood cultures preliminary growing Staphylococcus aureus. 3. Right shoulder joint effusion, status post fall, rule out septic joint. 4. Diabetes. 5. Presence of yeast in in the urinalysis. PLAN: The patient remains clinically stable. He is covered with broad spectrum antibiotics. Cultures are pending. A 2D echo pending. He needs to have right shoulder MRI and ortho evaluation. Continue present care, blood sugar control. Pain management. Dictated By: MARIA M NGUYỄN BUSINESS MANAGEMENT SPECIALIST for BJ METZGER/ESDRAS Conf#: [id number] DID#: [id number] CRISTÓBAL
[2017-09-07] MEDS: VANCOMYCIN 1.25 GM in SOD CHLORIDE 0.9% 250 ML IVPB SCH (19:36)
[2017-09-07] MEDS: INSULIN GLARGINE [LANtus] 3 ML PEN SC SCH (22:05)
[2017-09-07] MEDS ORDERED: morphine 4 MG/ML VIAL IV PRN (22:30)
[2017-09-08] VITALS (12 sets, daily range): BP systolic 103–144; BP diastolic 58–69; PULSE 89–101; RESP 18–19
[2017-09-08] MEDS ORDERED: ACCU-CHEK XX SCH (02:00)
[2017-09-08] MEDS: ACCU-CHEK XX SCH ×2 (02:00)
--- NOTE | 2017-09-08 02:48 | RADRPT ---
PROCEDURE: MRI examination of the right shoulder. CLINICAL INDICATION: Right shoulder pain. TECHNIQUE: Noncontrast MRI examination of the right shoulder, with axial, sagittal and coronal reagan ges. COMPARISON: Right shoulder plain film series dated 09/05/[address] examination of the right should er dated 09/06/2017. FINDINGS: Supraspinatus and infraspinatus full-thickness tears with retraction to about 1 cm lateral to the fa ce the glenoid. The supraspinatus full-thickness tear appears complete. The infraspinatus full-thick ness tear is near-complete, with small amount of intact infraspinatus seen posteriorly. There are ch anges of fatty atrophy and edema in the supraspinatus and infraspinatus suggesting chronicity of the tears. There is at least a partial tear of the subscapularis, evidenced by attenuation of the lateral subsc apularis. Tear of the biceps near the biceps anchor, and the intra-articular biceps is not otherwise identifie d. There is likely retraction of the long head of the biceps. Likely tears of the posterior superior and superior glenoid labrum, evidenced by 8 attenuation. There is a mild to moderate joint effusion with edema throughout the shoulder. Degenerative changes at the AC joint with joint effusion. IMPRESSION: 1. Retracted tears of the supraspinatus and infraspinatus, with fatty atrophy and edema within these muscles compatible with chronicity. 2. At least a partial tear of the subscapularis, evidenced by attenuation. 3. Tear of the intra-articular biceps with likely retraction. 4. Tears of the posterior superior and superior posterior glenoid labrum. 5. Mild to moderate joint effusion throughout the shoulder. RPTAT: [facility] Physician Allan Date Time Electronically viewed and signed by Physician Allan on 09/08/2017 02:48 RS/
[2017-09-08] MEDS: SOD CHLORIDE 0.9% 1,000 ML IV SCH ×3 (05:22→19:24)
[2017-09-08] MEDS: PANTOPRAZOLE (EC) 40 MG TAB PO SCH (05:22)
[2017-09-08] MEDS: PIPER-TAZO 3.375 GM IV (PMX) 100 ML IVPB SCH ×2 (05:28→12:27)
[2017-09-08 08:13] LABS: BASOPHIL # 0.1 10^3/ul (0.0-0.1); BASOPHILS % 0.3 % (0.0-2.0); EOSINOPHILS # 0.1 10^3/ul (0.0-0.5); EOSINOPHILS % 0.5 % (0.0-7.0); HEMATOCRIT 30.5 % (42.0-52.0); HEMOGLOBIN 10.2 g/dl (14.0-18.0); LYMPHOCYTES # 1.1 10^3/ul (0.8-2.9); LYMPHOCYTES % 4.9 % (15.0-51.0); MEAN CORPUSCULAR HEMOGLOBIN 29.8 pg (29.0-33.0); MEAN CORPUSCULAR HGB CONC 33.4 g/dl (32.0-37.0); MEAN CORPUSCULAR VOLUME 89.2 fl (82.0-101.0); MEAN PLATELET VOLUME 10.8 fl (7.4-10.4); MONOCYTE # 1.4 10^3/ul (0.3-0.9); MONOCYTES % 6.5 % (0.0-11.0); NEUTROPHIL # 18.4 10^3/ul (1.6-7.5); NEUTROPHILS % 86.5 % (39.0-77.0); PLATELET COUNT 226 10^3/UL (140-415); RED BLOOD COUNT 3.42 10^6/ul (4.70-6.10); RED CELL DISTRIBUTION WIDTH 14.4 % (11.5-14.5); WHITE BLOOD COUNT 21.3 10^3/ul (4.8-10.8)
[2017-09-08 08:50] LABS: CALCIUM 7.5 mg/dl (8.4-10.2); CREATININE 1.32 mg/dl (0.61-1.24); POTASSIUM 3.4 mmol/L (3.5-5.1)
[2017-09-08] MEDS: INSULIN ASPART [NOVOLOG] 3 ML PEN SC SCH ×6 (08:50→21:00)
[2017-09-08] MEDS: CYCLOBENZAPRINE 10 MG TAB PO SCH ×3 (09:51→21:30)
[2017-09-08] MEDS: HEPARIN 5,000 UNIT/0.5 ML VIAL SC SCH ×2 (10:01→21:45)
--- NOTE | 2017-09-08 12:15 | PN ---
Date/Time of Note Date/Time of Note DATE: 09/08/17 TIME: 12:14 Assessment/Plan VTE Prophylaxis VTE Prophylaxis Intervention: heparin Lines/Catheters IV [facility] Type (from [facility]): Peripheral IV Urinary Cath still in place: No Assessment/Plan Chief Complaint/Hosp Course ASSESSMENT AND PLAN: 72-year-old male coming in with severe sepsis, hyponatremia, and very elevated blood sugars. 1. Severe sepsis, again unclear source of patient's fevers, although source could be septic joint from the right shoulder based on the MRI results of this shoulder. However blood cultures are 2 out of 2 bottles positive for staph aureus. -Continue broad-spectrum antibiotics -f/u ID consult rec's. - Continue IV fluids as well. -We will also get orthopedic surgery consult given the MRI shoulder results, check ESR and CRP, and order for IR guided drainage of the joint fluid in the right shoulder and sent for cultures and cell count 2. Hyponatremia - improved (119-> 127 -> 129) -Continue aggressive normal saline IV fluid hydration. Monitor sodium levels very carefully. 3. Elevated blood sugars -A1c equals 12.9 -Continue Lantus 25 units and now mild insulin sliding scale. - short acting insulin 6 units with meals 4. History of diabetes. Again, see number 3. 5. High cholesterol. Follow-up lipid panel as well. 6. Deep vein thrombosis prophylaxis. Heparin subcutaneous. 7. Right shoulder pain -based on CT scan results -see #1, will get orthopedic surgery consult Problems: Subjective 24 Hr Interval Summary Free Text/Dictation Patient seen by infectious disease team, still having right shoulder pain. Exam/Review of Systems Vital Signs Vitals Vital Signs Date Time Temp Pulse Resp B/P Pulse Ox O2 Delivery O2 Flow Rate FiO2 09/08/17 11:08 98.4 93 19 116/69 96 09/07/17 22:00 Nasal Cannula 2.0 Intake and Output 09/07/17 09/07/17 09/08/17 15:00 23:00 07:00 Intake Total 150 ml 1300 ml 1150 ml Output Total 500 ml Balance 150 ml 1300 ml 650 ml Exam GENERAL: The patient is lying in bed, answering questions HEENT: Pupils equal, round, react to light. EOMS intact. NECK: Supple. No thyromegaly. LUNGS: Clear to auscultation bilaterally. CARDIOVASCULAR: S1, S2 heard, no rubs or gallops. ABDOMEN: Soft, nontender, nondistended. Normal bowel sounds. No rebound or guarding. MUSCULOSKELETAL: No lower extremity edema bilaterally. NEUROLOGIC: No focal deficits. Results Result Diagram: 09/08/17 0644 09/08/17 0644 Results 24 hrs Laboratory Tests Test 09/07/17 12:45 09/07/17 17:56 09/07/17 22:01 09/08/17 06:44 Bedside Glucose 106 127 125 White Blood Count 21.3 H Red Blood Count 3.42 L Hemoglobin 10.2 L Hematocrit 30.5 L Mean Corpuscular Volume 89.2 Mean Corpuscular Hemoglobin 29.8 Mean Corpuscular Hemoglobin Concent 33.4 Red Cell Distribution Width 14.4 Platelet Count 226 Mean Platelet Volume 10.8 H Neutrophils % 86.5 H Lymphocytes % 4.9 L Monocytes % 6.5 Eosinophils % 0.5 Basophils % 0.3 Nucleated Red Blood Cells % 0.0 Neutrophils # 18.4 H Lymphocytes # 1.1 Monocytes # 1.4 H Eosinophils # 0.1 Basophils # 0.1 Nucleated Red Blood Cells # 0.0 Sodium Level 129 L Potassium Level 3.4 L Chloride Level 102 Carbon Dioxide Level 24 Anion Gap 6 L Blood Urea Nitrogen 25 H Creatinine 1.32 H Glucose Level 42 #*L Calcium Level 7.5 L Test 09/08/17 09:31 09/08/17 09:53 Bedside Glucose 92 111 Medications Medications Current Medications Ondansetron HCl (Zofran Inj) 4 mg Q6H PRN IV NAUSEA AND/OR VOMITING; Start 09/05/17 at 19:00 Acetaminophen (Tylenol Tab) 650 mg Q6H PRN PO PAIN LEVEL 1-3 OR FEVER Last administered on 09/06/17 08:44; Admin Dose 650 MG; Start 09/05/17 at 19:00 Acetaminophen/ Hydrocodone Bitart ([place] (5/325)) 1 tab Q6H PRN PO MODERATE PAIN LEVEL 4-6 Last administered on 09/07/17 19:35; Admin Dose 1 TAB; Start 09/05/17 at 19:00 Morphine Sulfate (morphine) 2 mg Q4H PRN IV SEVERE PAIN LEVEL 7-10 Last administered on 09/07/17 18:03; Admin Dose 2 MG; Start 09/05/17 at 19:00 Docusate Sodium (Colace) 100 mg Q12H PRN PO CONSTIPATION; Start 09/05/17 at 19: 00 Magnesium Hydroxide (Milk Of Mag) 30 ml DAILY PRN PO CONSTIPATION; Start at 19:00 Sodium Biphosphate/ Sodium Phosphate (Fleet Enema) 133 ml DAILY PRN [place] CONSTIPATION; Start 09/05/17 at 19:00 Pantoprazole (Protonix Tab) 40 mg DAILY@06 PO Last administered on 09/08/17 05:22; Admin Dose 40 MG; Start 09/06/17 at 06:00 Heparin Sodium (Porcine) (Heparin (5000 Units/0.5 ml)) 5,000 unit Q12 SC Last administered on 09/08/17 10:01; Admin Dose 5,000 UNIT; Start 09/05/17 at 21:00 Lorazepam 0.5 mg 0.5 mg Q6H PRN IV ANXIETY; Start 09/05/17 at 19:00 Sodium Chloride 1,000 ml @ 100 mls/hr Q10H IV Last administered on 09/08/17 05:22; Admin Dose 100 MLS/HR; Start 09/05/17 at 18:31 Piperacillin Sod/ Tazobactam Sod (Zosyn 3.375gm/ 100 ml (Pmx)) 100 ml @ 200 mls /hr Q6 IVPB Last administered on 09/08/17 05:28; Admin Dose 200 MLS/HR; Start 09/06/17 at 00:00 Vancomycin HCl (Vanco Iv Per Pharmacy) VANCOMYCIN PER PHARMACY NOTE XX ; Start 09/05/17 at 19:00 Hydralazine HCl (Apresoline) 10 mg Q6H PRN IV ELEVATED BLOOD PRESSURE; Start 09/05/17 at 19:00 Clonidine (Catapres) 0.1 mg Q6H PRN PO ELEVATED BLOOD PRESSURE; Start 09/05/17 at 19:00 Nitroglycerin (Nitroglycerin (Sl Tab) 0.4 Mg) 1 tab Q5M PRN SL ANGINA; Start 09/05/17 at 19:00 Diagnostic Test (Pha) (Accu-Chek) 1 ea 02 XX ; Start 09/06/17 at 02:00 Insulin Glargine (Lantus) 25 unit DAILY@20 SC Last administered on 09/07/17 22:05; Admin Dose 25 UNIT; Start 09/05/17 at 19:00 Miscellaneous Information 1 ea NOTE XX ; Start 09/05/17 at 21:00 Glucose (Glutose) 15 gm Q15M PRN PO DECREASED GLUCOSE; Start 09/05/17 at 21:00 Glucose (Glutose) 22.5 gm Q15M PRN PO DECREASED GLUCOSE; Start 09/05/17 at 21: 00 Dextrose (D50w Syringe) 25 ml Q15M PRN IV DECREASED GLUCOSE; Start 09/05/17 at 21:00 Dextrose (D50w Syringe) 50 ml Q15M PRN IV DECREASED GLUCOSE; Start 09/05/17 at 21:00 Glucagon (Glucagen) 1 mg Q15M PRN IM DECREASED GLUCOSE; Start 09/05/17 at 21:00 Glucose 15 gm 15 gm Q15M PRN BUCCAL DECREASED GLUCOSE; Start 09/05/17 at 21:00 Fluconazole/ Sodium Chloride (Diflucan 100 Mg/ NS (Pmx)) 50 ml @ 50 mls/hr Q24H IVPB Last administered on 09/07/17 12:43; Admin Dose 50 MLS/HR; Start at 12:00 Miscellaneous Information (*Rx Drug Level Order Reminder*) VANCOMYCIN TROUGH AT 1700 ONCE ONCE XX ; Start 09/08/17 at 19:00; Stop 09/08/17 at 19:01 Diagnostic Test (Pha) (Accu-Chek) 1 ea 02 XX ; Start 09/08/17 at 02:00 Cyclobenzaprine HCl (Flexeril) 10 mg TID PO Last administered on 09/08/17 09: 51; Admin Dose 10 MG; Start 09/07/17 at 13:00 Morphine Sulfate (morphine) 4 mg Q4H PRN IV PAIN Last administered on 22:53; Admin Dose 4 MG; Start 09/07/17 at 22:30 Acetaminophen/ Hydrocodone Bitart 2 tab 2 tab Q6H PRN PO PAIN; Start 09/07/17 at 22:30 Vancomycin HCl/ Sodium Chloride (Vancocin/NS) 250 ml @ 83.333 mls/ hr Q24H IVPB ; Start 09/08/17 at 20:00 KULDEEP SALDIVAR Sep 08, 2017 12:15
[2017-09-08] MEDS: FLUCONAZOLE 100 MG/NS (PMX) 50 ML IVPB SCH (12:34)
[2017-09-08] MEDS: morphine 2 MG INJ IV PRN (14:38)
[2017-09-08] MEDS ORDERED: LEVOFLOXACIN 500 MG TAB PO ONE (15:00)
--- NOTE | 2017-09-08 16:00 | PN ---
DATE: 09/08/2017 SUBJECTIVE: The patient is alert, complaining of right upper extremity pain. He is in no distress, no fevers. Family at bedside. LABORATORY DATA: WBC 21.3, H and H 10.2 and 30.5, platelets 226, neutrophils 86.5. BUN 25, creatin ine 1.32. DIAGNOSTICS: MRI of the right shoulder revealed retracted tears of the supraspinatus and infraspina tus with atrophy and edema within these muscles compatible with chronicity, mild to moderate jaundic e effusion throughout the shoulder. MICROBIOLOGY: Blood cultures since admission grew oxacillin-sensitive Staphylococcus aureus. Repea t blood cultures pending. ANTIMICROBIALS: 1. Vancomycin. 2. Fluconazole. 3. Zosyn. PHYSICAL EXAMINATION: GENERAL: This is a well-developed, well-nourished elderly man who is alert, in no distress . HEENT: Head atraumatic, normocephalic. Sclerae anicteric. Buccal mucosa dry. NECK: Supple. CHEST: Rise symmetrical. Breath sounds clear. HEART: S1, S2. ABDOMEN: Soft, bowel tones present. EXTREMITIES: With right with right arm erythema, swelling of the shoulder and significant limitatio n of range of motion. ASSESSMENT: 1. Sepsis. 2. Oxacillin-sensitive Staphylococcus aureus bacteremia of unclear etiology, rule out septic joint. 3. Right shoulder pain with an abnormal MRI and significant joint effusion, status post trauma afte r fall. 4. Diabetes. PLAN: The patient remains stable. He is febrile with persistent leukocytosis, pending repeat blood cultures, pending 2-D echo. We will change Zosyn to Levaquin, discontinue Diflucan. Continue vanc omycin for now. Await for ortho evaluation. Dictated By: MARIA M NGUYỄN FINE SANDER for BJ METZGER/ESDRAS Conf#: [id number] DID#: [id number]
[2017-09-08] MEDS ORDERED: POTASSIUM CHLORIDE (SR) 20 MEQ TAB PO STA (16:35)
[2017-09-08] MEDS ORDERED: VANCOMYCIN 1.25 GM in SOD CHLORIDE 0.9% 250 ML IVPB SCH (20:00)
[2017-09-08] MEDS: INSULIN GLARGINE [LANtus] 3 ML PEN SC SCH (21:44)
[2017-09-09] VITALS (12 sets, daily range): BP systolic 118–135; BP diastolic 63–71; PULSE 80–94; RESP 18–19
[2017-09-09] MEDS: ACCU-CHEK XX SCH (02:00)
[2017-09-09] MEDS: SOD CHLORIDE 0.9% 1,000 ML IV SCH ×3 (02:31→22:31)
[2017-09-09] MEDS ORDERED: LEVOFLOXACIN 500 MG TAB PO SCH (06:00)
[2017-09-09] MEDS: PANTOPRAZOLE (EC) 40 MG TAB PO SCH (06:18)
[2017-09-09] MEDS: INSULIN ASPART [NOVOLOG] 3 ML PEN SC SCH ×7 (07:55→20:55)
[2017-09-09] MEDS: CYCLOBENZAPRINE 10 MG TAB PO SCH ×3 (08:54→20:33)
[2017-09-09] MEDS: HYDROCODONE/APAP (5/325) TAB PO PRN ×2 (08:54→18:11)
[2017-09-09] MEDS: HEPARIN 5,000 UNIT/0.5 ML VIAL SC SCH ×2 (08:56→20:54)
[2017-09-09 09:02] LABS: BASOPHIL # 0.1 10^3/ul (0.0-0.1); BASOPHILS % 0.3 % (0.0-2.0); EOSINOPHILS # 0.2 10^3/ul (0.0-0.5); EOSINOPHILS % 1.2 % (0.0-7.0); HEMATOCRIT 31.3 % (42.0-52.0); HEMOGLOBIN 10.4 g/dl (14.0-18.0); LYMPHOCYTES # 1.3 10^3/ul (0.8-2.9); LYMPHOCYTES % 6.5 % (15.0-51.0); MEAN CORPUSCULAR HEMOGLOBIN 29.4 pg (29.0-33.0); MEAN CORPUSCULAR HGB CONC 33.2 g/dl (32.0-37.0); MEAN CORPUSCULAR VOLUME 88.4 fl (82.0-101.0); MEAN PLATELET VOLUME 10.1 fl (7.4-10.4); MONOCYTE # 1.4 10^3/ul (0.3-0.9); MONOCYTES % 7.4 % (0.0-11.0); NEUTROPHILS % 83.3 % (39.0-77.0); PLATELET COUNT 282 10^3/UL (140-415); RED BLOOD COUNT 3.54 10^6/ul (4.70-6.10); RED CELL DISTRIBUTION WIDTH 14.6 % (11.5-14.5); WHITE BLOOD COUNT 19.2 10^3/ul (4.8-10.8)
[2017-09-09 09:23] LABS: CALCIUM 7.5 mg/dl (8.4-10.2); CREATININE 1.28 mg/dl (0.61-1.24); POTASSIUM 3.9 mmol/L (3.5-5.1)
--- NOTE | 2017-09-09 11:05 | PN ---
Date/Time of Note Date/Time of Note DATE: 09/09/17 TIME: 11:00 Assessment/Plan VTE Prophylaxis VTE Prophylaxis Intervention: heparin Lines/Catheters IV Catheter Type (from [facility] Peripheral IV Urinary Cath still in place: No Assessment/Plan Chief Complaint/Hosp Course ASSESSMENT AND PLAN: 72-year-old male coming in with severe sepsis, hyponatremia, and very elevated blood sugars. 1. Severe sepsis, again unclear source of patient's fevers, although source could be septic joint from the right shoulder based on the MRI results of this shoulder. Blood cultures from 09/05 are 2 out of 2 bottles positive for staph aureus. ESR and CRP are also elevated. -Continue broad-spectrum antibiotics -f/u ID consult rec's. - Continue IV fluids as well. -Planning for IR guided drainage of the joint fluid in the right shoulder and will send fluid for cultures and cell count 2. Hyponatremia - improved (119-> 127 -> 129 ->133) -Continue IV fluids fluid hydration. Monitor sodium levels very carefully. 3. Elevated blood sugars -A1c equals 12.9 -Continue Lantus 15 units and now mild insulin sliding scale. - short acting insulin 2 units with meals 4. History of diabetes. Again, see number 3. 5. High cholesterol. Follow-up lipid panel as well. 6. Deep vein thrombosis prophylaxis. Heparin subcutaneous. 7. Right shoulder pain -based on CT scan results -see #1, f/u orthopedic surgery consult recommendations Problems: Subjective 24 Hr Interval Summary Free Text/Dictation Patient awaiting IR guided procedure for right shoulder. No acute events overnight. Exam/Review of Systems Vital Signs Vitals Vital Signs Date Time Temp Pulse Resp B/P Pulse Ox O2 Delivery O2 Flow Rate FiO2 09/09/17 08:14 93 09/09/17 07:37 98.5 19 135/69 96 09/08/17 08:00 Nasal Cannula 2.0 Intake and Output 09/08/17 09/08/17 09/09/17 15:00 23:00 07:00 Intake Total 1930 ml 1000 ml Output Total 800 ml 1800 ml Balance 1130 ml -800 ml Exam GENERAL: The patient is lying in bed, answering questions HEENT: Pupils equal, round, react to light. EOMS intact. NECK: Supple. No thyromegaly. LUNGS: Clear to auscultation bilaterally. CARDIOVASCULAR: S1, S2 heard, no rubs or gallops. ABDOMEN: Soft, nontender, nondistended. Normal bowel sounds. No rebound or guarding. MUSCULOSKELETAL: No lower extremity edema bilaterally. NEUROLOGIC: No focal deficits. Results Result Diagram: 09/09/17 0747 09/09/17 0746 Results 24 hrs Laboratory Tests Test 09/08/17 12:22 09/08/17 17:17 09/08/17 19:20 09/08/17 21:27 Bedside Glucose 141 140 128 Vancomycin Level Trough 10.1 Test 09/09/17 05:14 09/09/17 07:46 09/09/17 07:47 09/09/17 08:32 Bedside Glucose 87 97 Sodium Level 133 L Potassium Level 3.9 Chloride Level 105 Carbon Dioxide Level 20 L Anion Gap 12 Blood Urea Nitrogen 19 Creatinine 1.28 H Glucose Level 67 #L Calcium Level 7.5 L White Blood Count 19.2 H Red Blood Count 3.54 L Hemoglobin 10.4 L Hematocrit 31.3 L Mean Corpuscular Volume 88.4 Mean Corpuscular Hemoglobin 29.4 Mean Corpuscular Hemoglobin Concent 33.2 Red Cell Distribution Width 14.6 H Platelet Count 282 # Mean Platelet Volume 10.1 Neutrophils % 83.3 H Lymphocytes % 6.5 L Monocytes % 7.4 Eosinophils % 1.2 Basophils % 0.3 Nucleated Red Blood Cells % 0.0 Neutrophils # 16.0 H Lymphocytes # 1.3 Monocytes # 1.4 H Eosinophils # 0.2 Basophils # 0.1 Nucleated Red Blood Cells # 0.0 Medications Medications Current Medications Ondansetron HCl (Zofran Inj) 4 mg Q6H PRN IV NAUSEA AND/OR VOMITING; Start 09/05/17 at 19:00 Acetaminophen (Tylenol Tab) 650 mg Q6H PRN PO PAIN LEVEL 1-3 OR FEVER Last administered on 09/06/17 08:44; Admin Dose 650 MG; Start 09/05/17 at 19:00 Acetaminophen/ Hydrocodone Bitart ([place] (5/325)) 1 tab Q6H PRN PO MODERATE PAIN LEVEL 4-6 Last administered on 09/07/17 19:35; Admin Dose 1 TAB; Start 09/05/17 at 19:00 Morphine Sulfate (morphine) 2 mg Q4H PRN IV SEVERE PAIN LEVEL 7-10 Last administered on 09/08/17 14:38; Admin Dose 2 MG; Start 09/05/17 at 19:00 Docusate Sodium (Colace) 100 mg Q12H PRN PO CONSTIPATION; Start 09/05/17 at 19: 00 Magnesium Hydroxide (Milk Of Mag) 30 ml DAILY PRN PO CONSTIPATION; Start at 19:00 Sodium Biphosphate/ Sodium Phosphate (Fleet Enema) 133 ml DAILY PRN [place] CONSTIPATION; Start 09/05/17 at 19:00 Pantoprazole (Protonix Tab) 40 mg DAILY@06 PO Last administered on 09/09/17 06:18; Admin Dose 40 MG; Start 09/06/17 at 06:00 Heparin Sodium (Porcine) (Heparin (5000 Units/0.5 ml)) 5,000 unit Q12 SC Last administered on 09/09/17 08:56; Admin Dose 5,000 UNIT; Start 09/05/17 at 21:00 Lorazepam 0.5 mg 0.5 mg Q6H PRN IV ANXIETY; Start 09/05/17 at 19:00 Sodium Chloride (NS) 1,000 ml @ 100 mls/hr Q10H IV Last administered on 19:24; Admin Dose 100 MLS/HR; Start 09/05/17 at 18:31 Vancomycin HCl (Vanco Iv Per Pharmacy) VANCOMYCIN PER PHARMACY NOTE XX ; Start 09/05/17 at 19:00 Hydralazine HCl (Apresoline) 10 mg Q6H PRN IV ELEVATED BLOOD PRESSURE; Start 09/05/17 at 19:00 Clonidine (Catapres) 0.1 mg Q6H PRN PO ELEVATED BLOOD PRESSURE; Start 09/05/17 at 19:00 Nitroglycerin (Nitroglycerin (Sl Tab) 0.4 Mg) 1 tab Q5M PRN SL ANGINA; Start 09/05/17 at 19:00 Miscellaneous Information 1 ea NOTE XX ; Start 09/05/17 at 21:00 Glucose (Glutose) 15 gm Q15M PRN PO DECREASED GLUCOSE; Start 09/05/17 at 21:00 Glucose (Glutose) 22.5 gm Q15M PRN PO DECREASED GLUCOSE; Start 09/05/17 at 21: 00 Dextrose (D50w Syringe) 25 ml Q15M PRN IV DECREASED GLUCOSE; Start 09/05/17 at 21:00 Dextrose (D50w Syringe) 50 ml Q15M PRN IV DECREASED GLUCOSE; Start 09/05/17 at 21:00 Glucagon (Glucagen) 1 mg Q15M PRN IM DECREASED GLUCOSE; Start 09/05/17 at 21:00 Glucose (Glutose) 15 gm Q15M PRN BUCCAL DECREASED GLUCOSE; Start 09/05/17 at 21 :00 Diagnostic Test (Pha) (Accu-Chek) 1 ea 02 XX ; Start 09/08/17 at 02:00 Cyclobenzaprine HCl (Flexeril) 10 mg TID PO Last administered on 09/09/17 08: 54; Admin Dose 10 MG; Start 09/07/17 at 13:00 Acetaminophen/ Hydrocodone Bitart 2 tab 2 tab Q6H PRN PO PAIN Last administered on 09/09/17 08:54; Admin Dose 2 TAB; Start 09/07/17 at 22:30 Vancomycin HCl/ Sodium Chloride (Vancocin/NS) 250 ml @ 83.333 mls/ hr Q24H IVPB Last administered on 09/08/17 21:30; Admin Dose 83.333 MLS/HR; Start at 20:00 Insulin Glargine (Lantus) 15 unit DAILY@20 SC Last administered on 09/08/17 21:44; Admin Dose 15 UNIT; Start 09/08/17 at 20:00 Levofloxacin (Levaquin) 500 mg DAILY@06 PO Last administered on 09/09/17 06: 18; Admin Dose 500 MG; Start 09/09/17 at 06:00 KLUDEEP SALDIVAR Sep 09, 2017 11:05
[2017-09-09] MEDS: morphine 2 MG INJ IV PRN (12:14)
[2017-09-09] MEDS ORDERED: LIDOCAINE 1% (MDV) 20 ML INJ ONE (13:49)
--- NOTE | 2017-09-09 14:19 | PN ---
DATE: 09/09/2017 INFECTIOUS DISEASE PROGRESS NOTE SUBJECTIVE: The patient is awake, sitting came on the edge of the bed, feels better. Looks comfort able, still with significant pain and swelling of his right shoulder. No fevers. WBC 19.2, neutrophils 83.3. BUN 19, creatinine 1.28. MICROBIOLOGY: Blood culture grew oxacillin-sensitive Staphylococcus aureus, repeat blood cultures h ave been negative. ANTIMICROBIALS: The patient is on: 1. Vancomycin. 2. Levaquin. PHYSICAL EXAMINATION: GENERAL: This is a well-developed elderly man who is in no distress. HEENT: Head atraumatic, normocephalic. Sclerae anicteric. Buccal mucosa pink. NECK: Supple. CHEST: Rise symmetrical. Breath sounds clear. HEART: S1, S2. ABDOMEN: Soft, bowel tones present. EXTREMITIES: With right shoulder erythema and swelling. ASSESSMENT: 1. Sepsis with fevers, leukocytosis on admission. 2. Right shoulder effusion. 3. Diabetes. 4. Anemia. 5. Acute renal insufficiency. PLAN: We are going to change antibiotics to Rocephin, await for 2D echo report. The patient to be seen by ortho surgery pending CT-guided fluid aspiration. Dictated By: MARIA M NGUYỄN SENIOR STATISTICAL PROGRAMMER for [employer]/ESDRAS Conf#: [id number] DID#: [id number]
--- NOTE | 2017-09-09 14:39 | RADRPT ---
PROCEDURE: CT guided right shoulder aspiration CLINICAL INDICATION: Right shoulder fluid collection TECHNIQUE: Informed consent was obtained from the patient following care for explanation of the ri sks and benefits of the procedure. The patient was placed supine on the CT table. Multiple axial i mages were obtained through the patient's abdomen and pelvis. DLP n/a (Heel Slicker CT) CTDI vol n/a (Heel Slicker CT) One or more of the following post reduction techniques were used: - Automated exposure control. - Adjustment of the mA and/or Kv according to patient's size. - Use of iterative reconstruction technique The patient was placed supine on the CT table. Multiple axial CT images through the right upper ches t were acquired without contrast. The right shoulder was localized. A site in the patient's right sh oulder region was selected and marked. The area was prepped and draped in the usual sterile fashion . 1% lidocaine was utilized. Under CT guidance a. 19-gauge Yueh needle was advanced into the right shoulder as confirmed by direct CT guidance. Approximately 0.55 c of bloody fluid was aspirated with a specimen sent for culture and sensitivity. The needle was removed and a sterile dressing was appl ied. The patient tolerated the procedure well. Post procedure CT demonstrates no immediate complications.. The patient tolerated the procedure wel l. COMPARISON: Recent CT an MRI FINDINGS: Only 0.5 cc of bloody fluid could be aspirated. IMPRESSION: Uncomplicated CT-guided aspiration of the right shoulder. RPTAT: AA .Zachary Scott MD, Date Time Electronically viewed and signed by .Zachary Scott MD, MD on 09/09/2017 14:38 .S/
[2017-09-09] MEDS: CEFTRIAXONE 2 GM/50 ML (PMX) 50 ML IVPB SCH (17:01)
[2017-09-09] MEDS: INSULIN GLARGINE [LANtus] 3 ML PEN SC SCH (20:48)
--- NOTE | 2017-09-09 21:22 | RADRPT ---
Echocardiogram Report Patient Name: BECKIE GILBERT Gender: Male Date: 1945 Study Date: 09-Sep-2017 Contract Modeler: [facility] Location: [address] Ref. Physician: MARIA M NGUYỄN Quality: Adequate Procedures: Transthoracic echocardiogram with complete 2D, M-Mode, and doppler examination. Indications: r/o vegetation. 2D/M Mode Doppler Measurement Value Normal Ranges Measurement Value Normal Ranges LVIDd 2D 4.8 3.5 - 5.6 cm AV Peak Earl 1.1 m/sec LVIDs 2D 3.5 2.1 - 4.1 cm AV Peak PG 5.0 mmHg FS 2D 25.7 % LVOT Peak Earl 0.7 m/sec LVPWd 2D 1.0 0.6 - 1.1 cm LVOT Peak PG 2.0 mmHg IVSd 2D 1.0 0.6 - 1.1 cm MV E Peak Earl 0.6 m/sec IVS/LVPW 2D 1.0 MV A Peak Earl 0.7 m/sec AoR Diam 2D 3.4 2.0 - 3.7 cm MV E/A 0.8 LA/Ao 2D 1 0 - 1 MV Decel Time 151 msec EDV 2D 109.0 cm3 MV E/A 0.8 ESV 2D 44.7 cm3 TR Peak Earl 2.5 m/sec LA Dimen 2D 3.4 2.3 - 4.0 cm TR Peak PG 24.0 mmHg RVSP 27.0 mmHg Findings Left Ventricle: Normal left ventricular cavity size. Normal left ventricular wall thickness. Mild left ventricular systolic dysfunction. Ejection fraction is visually estimated at 4550 %. Tissue Doppler/Mitral Doppler indices are consistent with impaired relaxation (Stage I diastolic dysfunction). These segments of the LV are hypokinetic inferoseptum mid segment. Right Ventricle: Normal right ventricular size. Normal right ventricular systolic function. Left Atrium: The left atrium is normal in size. Right Atrium: The right atrium is normal in size. Mitral Valve: Mitral valve leaflets appear moderately thickened. Mild mitral annular calcification. Trace mitral regurgitation. Aortic Valve: No significant aortic stenosis or insufficiency. Aortic cusps appear mildly calcified. Trace aortic valve regurgitation. Tricuspid Valve: Normal appearance of the tricuspid valve. Estimated peak PA systolic pressure 27 mmHg. There is mild tricuspid regurgitation. Pulmonic Valve: Normal pulmonic valve appearance. There is trace pulmonic regurgitation. Pericardium: Normal pericardium with no significant pericardial effusion. Aorta: Normal aortic root. IVC: Normal size and normal respiratory collapse consistent with normal right atrial pressure. Conclusions 1.Normal left ventricular cavity size. Normal left ventricular wall thickness. Mild left ventricular systolic dysfunction. Ejection fraction is visually estimated at 45-50 %. Tissue Doppler/Mitral Doppler indices are consistent with impaired relaxation (Stage I diastolic dysfunction). These segments of the LV are hypokinetic inferoseptum mid segment. 2.Mitral valve leaflets appear moderately thickened. Mild mitral annular calcification. Trace mitral regurgitation. 3.No significant aortic stenosis or insufficiency. Aortic cusps appear mildly calcified. Trace aortic valve regurgitation. 4.Normal appearance of the tricuspid valve. Estimated peak PA systolic pressure 27 mmHg. There is mild tricuspid regurgitation. 5.Normal pulmonic valve appearance. There is trace pulmonic regurgitation. 6.No definite vegetations noted on any of the well visualized valvaular apparati but cannot completely rule out due to poor windows and focal thickenening of the mitral valve apparatus. Consider BEAR if concern persists. Electronically Signed By: Kalia Berry 09-Sep-2017 21:21:55 -0700 Patient Name: BECKIE GILBERT Study Date: 09-Sep-[id number]
[2017-09-10] VITALS (12 sets, daily range): BP systolic 101–136; BP diastolic 62–75; PULSE 82–92; RESP 18
[2017-09-10] MEDS: ACCU-CHEK XX SCH (01:30)
[2017-09-10] MEDS: SOD CHLORIDE 0.9% 1,000 ML IV SCH ×2 (04:44→15:50)
[2017-09-10] MEDS: PANTOPRAZOLE (EC) 40 MG TAB PO SCH (05:59)
[2017-09-10] MEDS: ACETAMINOPHEN 325 MG TAB PO PRN ×2 (06:49→11:30)
[2017-09-10 08:22] LABS: ABNORMAL IP MESSAGE 1; BASOPHIL # 0.1 10^3/ul (0.0-0.1); BASOPHILS % 0.5 % (0.0-2.0); EOSINOPHILS # 0.4 10^3/ul (0.0-0.5); EOSINOPHILS % 2.6 % (0.0-7.0); HEMATOCRIT 32.5 % (42.0-52.0); LYMPHOCYTES # 1.5 10^3/ul (0.8-2.9); LYMPHOCYTES % 9.5 % (15.0-51.0); MEAN CORPUSCULAR HEMOGLOBIN 30.1 pg (29.0-33.0); MEAN CORPUSCULAR HGB CONC 33.8 g/dl (32.0-37.0); MEAN PLATELET VOLUME 9.8 fl (7.4-10.4); MONOCYTE # 1.4 10^3/ul (0.3-0.9); MONOCYTES % 8.9 % (0.0-11.0); NEUTROPHIL # 11.1 10^3/ul (1.6-7.5); NEUTROPHILS % 73.2 % (39.0-77.0); PLATELET COUNT 365 10^3/UL (140-415); POSITIVE DIFF @See below; RED BLOOD COUNT 3.65 10^6/ul (4.70-6.10); RED CELL DISTRIBUTION WIDTH 14.6 % (11.5-14.5); WHITE BLOOD COUNT 15.2 10^3/ul (4.8-10.8)
[2017-09-10 08:56] LABS: CALCIUM 7.9 mg/dl (8.4-10.2); CREATININE 1.31 mg/dl (0.61-1.24)
[2017-09-10] MEDS: CYCLOBENZAPRINE 10 MG TAB PO SCH ×3 (09:14→20:33)
[2017-09-10] MEDS: INSULIN ASPART [NOVOLOG] 3 ML PEN SC SCH ×7 (09:18→20:40)
[2017-09-10] MEDS: HEPARIN 5,000 UNIT/0.5 ML VIAL SC SCH ×2 (09:23→20:35)
--- NOTE | 2017-09-10 11:18 | CONS ---
Date/Time of Note Date/Time of Note DATE: 09/10/17 TIME: 11:18 Assessment/Plan Assessment/Plan Chief Complaint/Hosp Course ID PROGRESS NOTE CURRENT ABX: DAY # Ceftriaxone Vanco IV + Levaquin-> DC'd 09/09/17 24H INTERVAL SUMMARY * LEthargic on pain meds, son is present, VSS, no fevers * s/p shoulder tap w/0.55 c of bloody fluid was aspirated with a specimen sent for culture and sensitivity. * WBC downtrend, ESR 96, no fevers, * Alise: 09/09/17-1300 Rcvd: 09/09/17-1506 Source: SYN FLD Sp Descrip: Microbiology BODY FLUID CULTURE Preliminary <No reportable results for this procedure> Physical Exam Physical Exam Constitutional: VSS, NAD HEENT: Unremarkable Neck: Supple, full ROM Respiratory: clear to auscultation, normal air movement Cardiovascular: nl pulses, regular rate and rhythm Gastrointestinal: Soft, NT Extremities: Warm, no edema Neurological: Lethargic ID ASSESSMENT 72 yo M admit with: 1. Sepsis with fevers, leukocytosis on admission=> Likely due to septic arthritis * (+)Blood Cx Organism 1 STAPHYLOCOCCUS AUREUS S AUREUS M.I.C. RX --------- --- CEFAZOLIN S CIPROFLOXACIN <=0.5 S CLINDAMYCIN <=0.25 S DOXYCYCLINE S ERYTHROMYCIN <=0.25 S LEVOFLOXACIN <=0.12 S OXACILLIN <=0.25 S PENICILLIN-G R RIFAMPIN <=0.5 S VANCOMYCIN <=0.5 S TRIMETHOPRIM/SULFAMETHOXAZOLE <=10 S 2. Right shoulder effusion/ complex rotator cuff tear * s/p 09/[address] guided aspiration: Approximately 0.55 c of bloody fluid was aspirated with a specimen sent for culture and sensitivity. 3. Diabetes. 4. Anemia. 5. Acute renal insufficiency. CURRENT ABX: DAY # Ceftriaxone Vanco IV + Levaquin-> DC'd 09/09/17 ID RECOMMENDATIONS 1. Continue ceftriaxone over the weekend -> He will need 14 days total IV ABX with switch to PO Bactrim DS 1 TAB BID x14 days post IV ABX . Problems: Consultation Date/Type/Reason Admit Date/Time Sep 05, 2017 at 18:19 Initial Consult Date Exam/Review of Systems Vital Signs Vitals Vital Signs Date Time Temp Pulse Resp B/P Pulse Ox O2 Delivery O2 Flow Rate FiO2 09/10/17 08:43 90 09/10/17 07:36 98.0 18 132/63 98 09/08/17 08:00 Nasal Cannula 2.0 Intake and Output 09/09/17 09/09/17 09/10/17 15:00 23:00 07:00 Intake Total 700 ml 500 ml Output Total 800 ml 925 ml Balance -100 ml -425 ml Results Result Diagram: 09/10/1727 09/10/17726 Results 24 hrs Laboratory Tests Test 09/09/17 12:09 09/09/17 18:10 09/09/17 20:39 09/10/17 01:28 Bedside Glucose 99 118 118 55 L Test 09/10/17 02:27 09/10/17 07:27 09/10/17 08:28 Bedside Glucose 88 166 White Blood Count 15.2 #H Red Blood Count 3.65 L Hemoglobin 11.0 L Hematocrit 32.5 L Mean Corpuscular Volume 89.0 Mean Corpuscular Hemoglobin 30.1 Mean Corpuscular Hemoglobin Concent 33.8 Red Cell Distribution Width 14.6 H Platelet Count 365 # Mean Platelet Volume 9.8 Neutrophils % 73.2 Lymphocytes % 9.5 L Monocytes % 8.9 Eosinophils % 2.6 Basophils % 0.5 Nucleated Red Blood Cells % 0.0 Neutrophils # 11.1 H Lymphocytes # 1.5 Monocytes # 1.4 H Eosinophils # 0.4 Basophils # 0.1 Nucleated Red Blood Cells # 0.0 Sodium Level 126 L Potassium Level 4.0 Chloride Level 104 Carbon Dioxide Level 22 Anion Gap 4 #L Blood Urea Nitrogen 19 Creatinine 1.31 H Glucose Level 154 Calcium Level 7.9 L Medications Medications Current Medications Ondansetron HCl (Zofran Inj) 4 mg Q6H PRN IV NAUSEA AND/OR VOMITING; Start 09/05/17 at 19:00 Acetaminophen (Tylenol Tab) 650 mg Q6H PRN PO PAIN LEVEL 1-3 OR FEVER Last administered on 09/10/17t 06:49; Admin Dose 650 MG; Start 09/05/17 at 19:00 Acetaminophen/ Hydrocodone Bitart ([place] (5/325)) 1 tab Q6H PRN PO MODERATE PAIN LEVEL 4-6 Last administered on 09/07/17 19:35; Admin Dose 1 TAB; Start 09/05/17 at 19:00 Morphine Sulfate (morphine) 2 mg Q4H PRN IV SEVERE PAIN LEVEL 7-10 Last administered on 09/09/17 12:14; Admin Dose 2 MG; Start 09/05/17 at 19:00 Docusate Sodium (Colace) 100 mg Q12H PRN PO CONSTIPATION; Start 09/05/17 at 19: 00 Magnesium Hydroxide (Milk Of Mag) 30 ml DAILY PRN PO CONSTIPATION; Start at 19:00 Sodium Biphosphate/ Sodium Phosphate (Fleet Enema) 133 ml DAILY PRN [place] CONSTIPATION; Start 09/05/17 at 19:00 Pantoprazole (Protonix Tab) 40 mg DAILY@06 PO Last administered on 09/10/17 05:59; Admin Dose 40 MG; Start 09/06/17 at 06:00 Heparin Sodium (Porcine) (Heparin (5000 Units/0.5 ml)) 5,000 unit Q12 SC Last administered on 09/10/17 09:23; Admin Dose 5,000 UNIT; Start 09/05/17 at 21:00 Lorazepam 0.5 mg 0.5 mg Q6H PRN IV ANXIETY; Start 09/05/17 at 19:00 Sodium Chloride (NS) 1,000 ml @ 100 mls/hr Q10H IV Last administered on 04:44; Admin Dose 100 MLS/HR; Start 09/05/17 at 18:31 Hydralazine HCl (Apresoline) 10 mg Q6H PRN IV ELEVATED BLOOD PRESSURE; Start 09/05/17 at 19:00 Clonidine (Catapres) 0.1 mg Q6H PRN PO ELEVATED BLOOD PRESSURE; Start 09/05/17 at 19:00 Nitroglycerin (Nitroglycerin (Sl Tab) 0.4 Mg) 1 tab Q5M PRN SL ANGINA; Start 09/05/17 at 19:00 Miscellaneous Information 1 ea NOTE XX ; Start 09/05/17 at 21:00 Glucose (Glutose) 15 gm Q15M PRN PO DECREASED GLUCOSE; Start 09/05/17 at 21:00 Glucose (Glutose) 22.5 gm Q15M PRN PO DECREASED GLUCOSE; Start 09/05/17 at 21: 00 Dextrose (D50w Syringe) 25 ml Q15M PRN IV DECREASED GLUCOSE; Start 09/05/17 at 21:00 Dextrose (D50w Syringe) 50 ml Q15M PRN IV DECREASED GLUCOSE; Start 09/05/17 at 21:00 Glucagon (Glucagen) 1 mg Q15M PRN IM DECREASED GLUCOSE; Start 09/05/17 at 21:00 Glucose (Glutose) 15 gm Q15M PRN BUCCAL DECREASED GLUCOSE; Start 09/05/17 at 21 :00 Diagnostic Test (Pha) (Accu-Chek) 1 ea 02 XX ; Start 09/08/17 at 02:00 Cyclobenzaprine HCl (Flexeril) 10 mg TID PO Last administered on 09/10/17 09: 14; Admin Dose 10 MG; Start 09/07/17 at 13:00 Acetaminophen/ Hydrocodone Bitart ([place] (5/325)) 2 tab Q6H PRN PO PAIN Last administered on 09/09/17 18:11; Admin Dose 2 TAB; Start 09/07/17 at 22:30 Insulin Glargine 15 unit 15 unit DAILY@20 SC Last administered on 09/09/17 20 :48; Admin Dose 15 UNIT; Start 09/08/17 at 20:00 Ceftriaxone Sodium (Rocephin) 50 ml @ 100 mls/hr Q24H IVPB Last administered on 09/09/17 17:01; Admin Dose 100 MLS/HR; Start 09/09/17 at 16:00 DEVENDRA HERMOSILLO NP Sep 10, 2017 11:18
--- NOTE | 2017-09-10 12:46 | PN ---
Date/Time of Note Date/Time of Note DATE: 09/10/17 TIME: 12:43 Assessment/Plan VTE Prophylaxis VTE Prophylaxis Intervention: heparin Lines/Catheters IV Catheter Type (from [facility]): Peripheral IV Urinary Cath still in place: No Assessment/Plan Chief Complaint/Hosp Course ASSESSMENT AND PLAN: 72-year-old male coming in with severe sepsis, hyponatremia, and very elevated blood sugars. 1. Severe sepsis, again unclear source of patient's fevers, although source could be septic joint from the right shoulder based on the MRI results of this shoulder. Blood cultures from 09/05 are 2 out of 2 bottles positive for staph aureus. ESR and CRP are also elevated. -Continue broad-spectrum antibiotics -f/u ID consult rec's. - Continue IV fluids as well. -Planning for IR guided drainage of the joint fluid in the right shoulder and will send fluid for cultures and cell count 2. Hyponatremia - Was improving, but slightly lower today, patient asymptomatic (119-> 127 -> 129 ->133 -> 126) -Continue IV fluids fluid hydration. Monitor sodium levels very carefully. 3. DM- 2: Sugars on the low normal side the last 48 hours,-2 -A1c equals 12.9 -Continue Lantus 12 units and now mild insulin sliding scale. - short acting insulin 2 units with meals 4. High cholesterol. Follow-up lipid panel as well. 5. Deep vein thrombosis prophylaxis. Heparin subcutaneous. 6. Right shoulder pain -based on CT scan results -see #1, f/u orthopedic surgery consult recommendations Problems: Subjective 24 Hr Interval Summary Free Text/Dictation Seen by infectious disease team, no acute events overnight. Minimal fluid removed from IR aspiration of right shoulder yesterday. Exam/Review of Systems Vital Signs Vitals Vital Signs Date Time Temp Pulse Resp B/P Pulse Ox O2 Delivery O2 Flow Rate FiO2 09/10/17 12:40 82 09/10/17 11:46 98.0 18 136/65 98 09/08/17 08:00 Nasal Cannula 2.0 Intake and Output 09/09/17 09/09/17 09/10/17 15:00 23:00 07:00 Intake Total 700 ml 500 ml Output Total 800 ml 925 ml Balance -100 ml -425 ml Exam GENERAL: The patient is lying in bed, answering questions HEENT: Pupils equal, round, react to light. EOMS intact. NECK: Supple. No thyromegaly. LUNGS: Clear to auscultation bilaterally. CARDIOVASCULAR: S1, S2 heard, no rubs or gallops. ABDOMEN: Soft, nontender, nondistended. Normal bowel sounds. No rebound or guarding. MUSCULOSKELETAL: No lower extremity edema bilaterally. NEUROLOGIC: No focal deficits. Results Result Diagram: 09/10/17 0727 09/10/17 0727 Results 24 hrs Laboratory Tests Test 09/09/17 18:10 09/09/17 20:39 09/10/17 01:28 09/10/17 02:27 Bedside Glucose 118 118 55 L 88 Test 09/10/17 07:27 09/10/17 08:28 09/10/17 11:33 White Blood Count 15.2 #H Red Blood Count 3.65 L Hemoglobin 11.0 L Hematocrit 32.5 L Mean Corpuscular Volume 89.0 Mean Corpuscular Hemoglobin 30.1 Mean Corpuscular Hemoglobin Concent 33.8 Red Cell Distribution Width 14.6 H Platelet Count 365 # Mean Platelet Volume 9.8 Neutrophils % 73.2 Lymphocytes % 9.5 L Monocytes % 8.9 Eosinophils % 2.6 Basophils % 0.5 Nucleated Red Blood Cells % 0.0 Neutrophils # 11.1 H Lymphocytes # 1.5 Monocytes # 1.4 H Eosinophils # 0.4 Basophils # 0.1 Nucleated Red Blood Cells # 0.0 Sodium Level 126 L Potassium Level 4.0 Chloride Level 104 Carbon Dioxide Level 22 Anion Gap 4 #L Blood Urea Nitrogen 19 Creatinine 1.31 H Glucose Level 154 Calcium Level 7.9 L Bedside Glucose 166 181 Medications Medications Current Medications Ondansetron HCl (Zofran Inj) 4 mg Q6H PRN IV NAUSEA AND/OR VOMITING; Start 09/05/17 at 19:00 Acetaminophen (Tylenol Tab) 650 mg Q6H PRN PO PAIN LEVEL 1-3 OR FEVER Last administered on 09/10/17 11:30; Admin Dose 650 MG; Start 09/05/17 at 19:00 Acetaminophen/ Hydrocodone Bitart ([place] (5/325)) 1 tab Q6H PRN PO MODERATE PAIN LEVEL 4-6 Last administered on 09/07/17 19:35; Admin Dose 1 TAB; Start 09/05/17 at 19:00 Morphine Sulfate (morphine) 2 mg Q4H PRN IV SEVERE PAIN LEVEL 7-10 Last administered on 09/09/17 12:14; Admin Dose 2 MG; Start 09/05/17 at 19:00 Docusate Sodium (Colace) 100 mg Q12H PRN PO CONSTIPATION; Start 09/05/17 at 19: 00 Magnesium Hydroxide (Milk Of Mag) 30 ml DAILY PRN PO CONSTIPATION; Start at 19:00 Sodium Biphosphate/ Sodium Phosphate (Fleet Enema) 133 ml DAILY PRN [place] CONSTIPATION; Start 09/05/17 at 19:00 Pantoprazole (Protonix Tab) 40 mg DAILY@06 PO Last administered on 09/10/17 05:59; Admin Dose 40 MG; Start 09/06/17 at 06:00 Heparin Sodium (Porcine) (Heparin (5000 Units/0.5 ml)) 5,000 unit Q12 SC Last administered on 09/10/17 09:23; Admin Dose 5,000 UNIT; Start 09/05/17 at 21:00 Lorazepam 0.5 mg 0.5 mg Q6H PRN IV ANXIETY; Start 09/05/17 at 19:00 Sodium Chloride (NS) 1,000 ml @ 100 mls/hr Q10H IV Last administered on 04:44; Admin Dose 100 MLS/HR; Start 09/05/17 at 18:31 Hydralazine HCl (Apresoline) 10 mg Q6H PRN IV ELEVATED BLOOD PRESSURE; Start 09/05/17 at 19:00 Clonidine (Catapres) 0.1 mg Q6H PRN PO ELEVATED BLOOD PRESSURE; Start 09/05/17 at 19:00 Nitroglycerin (Nitroglycerin (Sl Tab) 0.4 Mg) 1 tab Q5M PRN SL ANGINA; Start 09/05/17 at 19:00 Miscellaneous Information 1 ea NOTE XX ; Start 09/05/17 at 21:00 Glucose (Glutose) 15 gm Q15M PRN PO DECREASED GLUCOSE; Start 09/05/17 at 21:00 Glucose (Glutose) 22.5 gm Q15M PRN PO DECREASED GLUCOSE; Start 09/05/17 at 21: 00 Dextrose (D50w Syringe) 25 ml Q15M PRN IV DECREASED GLUCOSE; Start 09/05/17 at 21:00 Dextrose (D50w Syringe) 50 ml Q15M PRN IV DECREASED GLUCOSE; Start 09/05/17 at 21:00 Glucagon (Glucagen) 1 mg Q15M PRN IM DECREASED GLUCOSE; Start 09/05/17 at 21:00 Glucose (Glutose) 15 gm Q15M PRN BUCCAL DECREASED GLUCOSE; Start 09/05/17 at 21 :00 Diagnostic Test (Pha) (Accu-Chek) 1 ea 02 XX ; Start 09/08/17 at 02:00 Cyclobenzaprine HCl (Flexeril) 10 mg TID PO Last administered on 09/10/17 12: 08; Admin Dose 10 MG; Start 09/07/17 at 13:00 Acetaminophen/ Hydrocodone Bitart 2 tab 2 tab Q6H PRN PO PAIN Last administered on 09/09/17 18:11; Admin Dose 2 TAB; Start 09/07/17 at 22:30 Ceftriaxone Sodium (Rocephin) 50 ml @ 100 mls/hr Q24H IVPB Last administered on 09/09/17 17:01; Admin Dose 100 MLS/HR; Start 09/09/17 at 16:00 Insulin Glargine (Lantus) 12 unit DAILY@20 SC ; Start 09/10/17 at 20:00 KULDEEP SALDIVAR Sep 10, 2017 12:46
[2017-09-10] MEDS: CEFTRIAXONE 2 GM/50 ML (PMX) 50 ML IVPB SCH (15:52)
[2017-09-10] MEDS: INSULIN GLARGINE [LANtus] 3 ML PEN SC SCH (20:32)
[2017-09-11] VITALS (11 sets, daily range): BP systolic 110–139; BP diastolic 64–75; PULSE 85–96; RESP 18
[2017-09-11] MEDS: ACCU-CHEK XX SCH (01:58)
[2017-09-11] MEDS: SOD CHLORIDE 0.9% 1,000 ML IV SCH ×2 (03:35→15:50)
[2017-09-11] MEDS: PANTOPRAZOLE (EC) 40 MG TAB PO SCH (05:45)
[2017-09-11 06:42] LABS: ABNORMAL IP MESSAGE 1; BASOPHIL # 0.1 10^3/ul (0.0-0.1); BASOPHILS % 0.6 % (0.0-2.0); EOSINOPHILS # 0.4 10^3/ul (0.0-0.5); EOSINOPHILS % 2.5 % (0.0-7.0); HEMATOCRIT 34.5 % (42.0-52.0); HEMOGLOBIN 11.3 g/dl (14.0-18.0); LYMPHOCYTES # 1.3 10^3/ul (0.8-2.9); LYMPHOCYTES % 8.9 % (15.0-51.0); MEAN CORPUSCULAR HEMOGLOBIN 29.6 pg (29.0-33.0); MEAN CORPUSCULAR HGB CONC 32.8 g/dl (32.0-37.0); MEAN CORPUSCULAR VOLUME 90.3 fl (82.0-101.0); MEAN PLATELET VOLUME 9.5 fl (7.4-10.4); MONOCYTES % 7.3 % (0.0-11.0); NEUTROPHIL # 10.4 10^3/ul (1.6-7.5); NEUTROPHILS % 73.1 % (39.0-77.0); PLATELET COUNT 445 10^3/UL (140-415); POSITIVE DIFF @See below; RED BLOOD COUNT 3.82 10^6/ul (4.70-6.10); RED CELL DISTRIBUTION WIDTH 15.1 % (11.5-14.5); WHITE BLOOD COUNT 14.3 10^3/ul (4.8-10.8)
[2017-09-11] MEDS: INSULIN ASPART [NOVOLOG] 3 ML PEN SC SCH ×7 (07:55→21:00)
[2017-09-11 08:39] LABS: CREATININE 1.29 mg/dl (0.61-1.24); POTASSIUM 3.9 mmol/L (3.5-5.1)
[2017-09-11] MEDS: CYCLOBENZAPRINE 10 MG TAB PO SCH ×3 (08:46→20:40)
[2017-09-11] MEDS: HEPARIN 5,000 UNIT/0.5 ML VIAL SC SCH ×2 (08:49→20:42)
[2017-09-11] MEDS: HYDROCODONE/APAP (5/325) TAB PO PRN (08:54)
--- NOTE | 2017-09-11 09:51 | PN ---
Date/Time of Note Date/Time of Note DATE: 09/11/17 TIME: 09:46 Assessment/Plan VTE Prophylaxis VTE Prophylaxis Intervention: heparin Lines/Catheters IV Catheter Type (from [facility]): Peripheral IV Urinary Cath still in place: No Assessment/Plan Chief Complaint/Hosp Course ASSESSMENT AND PLAN: 72-year-old male coming in with severe sepsis, hyponatremia, and very elevated blood sugars. 1. Severe sepsis-source likely septic joint from the right shoulder based on the MRI results of this shoulder. Status post IR guided drainage of the joint fluid in the right shoulder with minimal fluid aspirated out. Blood cultures from 09/05 are 2 out of 2 bottles positive for staph aureus, as well as fluid culture positive for staph that was aspirated from joint. ESR and CRP are also elevated. Overall slowly improving. -Continue broad-spectrum antibiotics IV for now -f/u ID consult rec's, per them patient will need 14 days total IV ABX with switch to PO Bactrim DS 1 TAB BID x14 days post IV ABX - Continue IV fluids as well. 2. Hyponatremia - appears resolved today (119-> 127 -> 129 ->133 -> 126 -> 137) Monitor fluid hydration. Monitor sodium levels very carefully. 3. DM- 2: A1c equals 12.9 , sugars improved the last 48 hours -Continue Lantus 12 units and now mild insulin sliding scale. - short acting insulin 2 units with meals 4. High cholesterol. Follow-up lipid panel as well. 5. Deep vein thrombosis prophylaxis. Heparin subcutaneous. 6. Right shoulder pain -based on CT scan results (multiple muscle tears) -see #1, f/u orthopedic surgery consult recommendations -official consult still pending although they were called 3 days ago Problems: Subjective 24 Hr Interval Summary Free Text/Dictation No acute events overnight. Exam/Review of Systems Vital Signs Vitals Vital Signs Date Time Temp Pulse Resp B/P Pulse Ox O2 Delivery O2 Flow Rate FiO2 09/11/17 08:12 96 09/11/17 08:00 98.0 18 139/75 98 09/10/17 21:12 21 09/08/17 08:00 Nasal Cannula 2.0 Intake and Output 09/10/17 09/10/17 09/11/17 15:00 23:00 07:00 Intake Total 1220 ml Output Total 1200 ml Balance 20 ml Exam GENERAL: The patient is lying in bed, answering questions HEENT: Pupils equal, round, react to light. EOMS intact. NECK: Supple. No thyromegaly. LUNGS: Clear to auscultation bilaterally. CARDIOVASCULAR: S1, S2 heard, no rubs or gallops. ABDOMEN: Soft, nontender, nondistended. Normal bowel sounds. No rebound or guarding. MUSCULOSKELETAL: No lower extremity edema bilaterally. NEUROLOGIC: No focal deficits. Results Result Diagram: 09/11/17 0554 09/11/17 0554 Results 24 hrs Laboratory Tests Test 09/10/17 11:33 09/10/17 17:31 09/10/17 20:28 09/11/17 01:56 Bedside Glucose 181 141 132 148 Test 09/11/17 05:54 09/11/17 08:08 White Blood Count 14.3 H Red Blood Count 3.82 L Hemoglobin 11.3 L Hematocrit 34.5 L Mean Corpuscular Volume 90.3 Mean Corpuscular Hemoglobin 29.6 Mean Corpuscular Hemoglobin Concent 32.8 Red Cell Distribution Width 15.1 H Platelet Count 445 #H Mean Platelet Volume 9.5 Neutrophils % 73.1 Lymphocytes % 8.9 L Monocytes % 7.3 Eosinophils % 2.5 Basophils % 0.6 Nucleated Red Blood Cells % 0.0 Neutrophils # 10.4 H Lymphocytes # 1.3 Monocytes # 1.0 H Eosinophils # 0.4 Basophils # 0.1 Nucleated Red Blood Cells # 0.0 Sodium Level 137 Potassium Level 3.9 Chloride Level 106 Carbon Dioxide Level 23 Anion Gap 12 # Blood Urea Nitrogen 16 Creatinine 1.29 H Glucose Level 148 Calcium Level 8.0 L Bedside Glucose 135 Medications Medications Current Medications Ondansetron HCl (Zofran Inj) 4 mg Q6H PRN IV NAUSEA AND/OR VOMITING; Start 09/05/17 at 19:00 Acetaminophen (Tylenol Tab) 650 mg Q6H PRN PO PAIN LEVEL 1-3 OR FEVER Last administered on 09/10/17 11:30; Admin Dose 650 MG; Start 09/05/17 at 19:00 Acetaminophen/ Hydrocodone Bitart ([place] (5/325)) 1 tab Q6H PRN PO MODERATE PAIN LEVEL 4-6 Last administered on 09/11/17 08:54; Admin Dose 1 TAB; Start 09/05/17 at 19:00 Morphine Sulfate (morphine) 2 mg Q4H PRN IV SEVERE PAIN LEVEL 7-10 Last administered on 09/09/17 12:14; Admin Dose 2 MG; Start 09/05/17 at 19:00 Docusate Sodium (Colace) 100 mg Q12H PRN PO CONSTIPATION; Start 09/05/17 at 19: 00 Magnesium Hydroxide (Milk Of Mag) 30 ml DAILY PRN PO CONSTIPATION; Start at 19:00 Sodium Biphosphate/ Sodium Phosphate (Fleet Enema) 133 ml DAILY PRN [place] CONSTIPATION; Start 09/05/17 at 19:00 Pantoprazole (Protonix Tab) 40 mg DAILY@06 PO Last administered on 09/11/17 05:45; Admin Dose 40 MG; Start 09/06/17 at 06:00 Heparin Sodium (Porcine) (Heparin (5000 Units/0.5 ml)) 5,000 unit Q12 SC Last administered on 09/11/17 08:49; Admin Dose 5,000 UNIT; Start 09/05/17 at 21:00 Lorazepam 0.5 mg 0.5 mg Q6H PRN IV ANXIETY; Start 09/05/17 at 19:00 Sodium Chloride (NS) 1,000 ml @ 100 mls/hr Q10H IV Last administered on 03:35; Admin Dose 100 MLS/HR; Start 09/05/17 at 18:31 Hydralazine HCl (Apresoline) 10 mg Q6H PRN IV ELEVATED BLOOD PRESSURE; Start 09/05/17 at 19:00 Clonidine (Catapres) 0.1 mg Q6H PRN PO ELEVATED BLOOD PRESSURE; Start 09/05/17 at 19:00 Nitroglycerin (Nitroglycerin (Sl Tab) 0.4 Mg) 1 tab Q5M PRN SL ANGINA; Start 09/05/17 at 19:00 Miscellaneous Information 1 ea NOTE XX ; Start 09/05/17 at 21:00 Glucose (Glutose) 15 gm Q15M PRN PO DECREASED GLUCOSE; Start 09/05/17 at 21:00 Glucose (Glutose) 22.5 gm Q15M PRN PO DECREASED GLUCOSE; Start 09/05/17 at 21: 00 Dextrose (D50w Syringe) 25 ml Q15M PRN IV DECREASED GLUCOSE; Start 09/05/17 at 21:00 Dextrose (D50w Syringe) 50 ml Q15M PRN IV DECREASED GLUCOSE; Start 09/05/17 at 21:00 Glucagon (Glucagen) 1 mg Q15M PRN IM DECREASED GLUCOSE; Start 09/05/17 at 21:00 Glucose (Glutose) 15 gm Q15M PRN BUCCAL DECREASED GLUCOSE; Start 09/05/17 at 21 :00 Diagnostic Test (Pha) (Accu-Chek) 1 ea 02 XX Last administered on 09/11/17 01 :58; Admin Dose 1 EA; Start 09/08/17 at 02:00 Cyclobenzaprine HCl (Flexeril) 10 mg TID PO Last administered on 09/11/17 08: 46; Admin Dose 10 MG; Start 09/07/17 at 13:00 Acetaminophen/ Hydrocodone Bitart 2 tab 2 tab Q6H PRN PO PAIN Last administered on 09/09/17 18:11; Admin Dose 2 TAB; Start 09/07/17 at 22:30 Ceftriaxone Sodium (Rocephin) 50 ml @ 100 mls/hr Q24H IVPB Last administered on 09/10/17 15:52; Admin Dose 100 MLS/HR; Start 09/09/17 at 16:00 Insulin Glargine (Lantus) 12 unit DAILY@20 SC Last administered on 09/10/17 20:32; Admin Dose 12 UNIT; Start 09/10/17 at 20:00 KULDEEP SALDIVAR Sep 11, 2017 09:51
[2017-09-11] MEDS: ACETAMINOPHEN 325 MG TAB PO PRN ×2 (11:10→17:36)
--- NOTE | 2017-09-11 14:37 | CONS ---
Date/Time of Note Date/Time of Note DATE: 09/11/17 TIME: 14:33 Assessment/Plan Assessment/Plan Chief Complaint/Hosp Course ID PROGRESS NOTE CURRENT ABX: DAY # Ceftriaxone Vanco IV + Levaquin-> DC'd 09/09/17 24H INTERVAL SUMMARY * Lethargy persisting, prefers to sleep, left arm pain -> (+)-> Septic joint confirmed on synovial fluid * s/p shoulder tap w/0.55 c of bloody fluid was aspirated with a specimen sent for culture and sensitivity. * WBC downtrend, ESR 96, no fevers, * Alise: 09/09/17-1300 Source: SYN FLD BODY FLUID CULTURE Final Organism 1 STAPHYLOCOCCUS AUREUS QUANTITY 1+ S AUREUS M.I.C. RX --------- --- CEFAZOLIN S CIPROFLOXACIN <=0.5 S CLINDAMYCIN <=0.25 S DOXYCYCLINE S ERYTHROMYCIN <=0.25 S LEVOFLOXACIN <=0.12 S OXACILLIN <=0.25 S PENICILLIN-G R RIFAMPIN <=0.5 S VANCOMYCIN <=0.5 S TRIMETHOPRIM/SULFAMETHOXAZOLE <=10 S Physical Exam Physical Exam Constitutional: VSS, NAD HEENT: Unremarkable Neck: Supple, full ROM Respiratory: clear to auscultation, normal air movement Cardiovascular: nl pulses, regular rate and rhythm Gastrointestinal: Soft, NT Extremities: Warm, no edema Neurological: Lethargic ID ASSESSMENT 72 yo M admit with: 1. Sepsis with fevers, leukocytosis on admission=> Likely due to septic arthritis * (+)Blood Cx Organism 1 STAPHYLOCOCCUS AUREUS S AUREUS M.I.C. RX --------- --- CEFAZOLIN S CIPROFLOXACIN <=0.5 S CLINDAMYCIN <=0.25 S DOXYCYCLINE S ERYTHROMYCIN <=0.25 S LEVOFLOXACIN <=0.12 S OXACILLIN <=0.25 S PENICILLIN-G R RIFAMPIN <=0.5 S VANCOMYCIN <=0.5 S TRIMETHOPRIM/SULFAMETHOXAZOLE <=10 S 2. Right shoulder effusion/ complex rotator cuff tear * s/p 09/[address] guided aspiration: Approximately 0.55 c of bloody fluid was aspirated with a specimen sent for culture and sensitivity. * 09/09/17 Synovial Fluid Cx: * Organism 1 STAPHYLOCOCCUS AUREUS QUANTITY 1+ 3. Diabetes. 4. Anemia. 5. Acute renal insufficiency. CURRENT ABX: DAY # Ceftriaxone Vanco IV + Levaquin-> DC'd 09/09/17 ID RECOMMENDATIONS 1. Continue ceftriaxone over the weekend -> He will need 14 days total IV ABX with possible switch to PO Bactrim DS 1 TAB BID x14 days post IV ABX 2. Ortho recs pending . Problems: Consultation Date/Type/Reason Admit Date/Time Sep 05, 2017 at 18:19 Exam/Review of Systems Vital Signs Vitals Vital Signs Date Time Temp Pulse Resp B/P Pulse Ox O2 Delivery O2 Flow Rate FiO2 09/11/17 12:53 97.4 90 18 129/64 98 09/10/17 21:12 21 09/08/17 08:00 Nasal Cannula 2.0 Intake and Output 09/10/17 09/10/17 09/11/17 15:00 23:00 07:00 Intake Total 1220 ml Output Total 1200 ml Balance 20 ml Results Result Diagram: 09/11/17 0554 09/11/17 0554 Results 24 hrs Laboratory Tests Test 09/10/17 17:31 09/10/17 20:28 09/11/17 01:56 09/11/17 05:54 Bedside Glucose 141 132 148 White Blood Count 14.3 H Red Blood Count 3.82 L Hemoglobin 11.3 L Hematocrit 34.5 L Mean Corpuscular Volume 90.3 Mean Corpuscular Hemoglobin 29.6 Mean Corpuscular Hemoglobin Concent 32.8 Red Cell Distribution Width 15.1 H Platelet Count 445 #H Mean Platelet Volume 9.5 Neutrophils % 73.1 Lymphocytes % 8.9 L Monocytes % 7.3 Eosinophils % 2.5 Basophils % 0.6 Nucleated Red Blood Cells % 0.0 Neutrophils # 10.4 H Lymphocytes # 1.3 Monocytes # 1.0 H Eosinophils # 0.4 Basophils # 0.1 Nucleated Red Blood Cells # 0.0 Sodium Level 137 Potassium Level 3.9 Chloride Level 106 Carbon Dioxide Level 23 Anion Gap 12 # Blood Urea Nitrogen 16 Creatinine 1.29 H Glucose Level 148 Calcium Level 8.0 L Test 09/11/17 08:08 10/15/17 12:40 Bedside Glucose 135 146 Medications Medications Current Medications Ondansetron HCl (Zofran Inj) 4 mg Q6H PRN IV NAUSEA AND/OR VOMITING; Start 09/05/17 at 19:00 Acetaminophen (Tylenol Tab) 650 mg Q6H PRN PO PAIN LEVEL 1-3 OR FEVER Last administered on 09/11/17 11:10; Admin Dose 650 MG; Start 09/05/17 at 19:00 Acetaminophen/ Hydrocodone Bitart ([place] (5/325)) 1 tab Q6H PRN PO MODERATE PAIN LEVEL 4-6 Last administered on 09/11/17 08:54; Admin Dose 1 TAB; Start 09/05/17 at 19:00 Morphine Sulfate (morphine) 2 mg Q4H PRN IV SEVERE PAIN LEVEL 7-10 Last administered on 09/09/17 12:14; Admin Dose 2 MG; Start 09/05/17 at 19:00 Docusate Sodium (Colace) 100 mg Q12H PRN PO CONSTIPATION; Start 09/05/17 at 19: 00 Magnesium Hydroxide (Milk Of Mag) 30 ml DAILY PRN PO CONSTIPATION; Start at 19:00 Sodium Biphosphate/ Sodium Phosphate (Fleet Enema) 133 ml DAILY PRN [place] CONSTIPATION; Start 09/05/17 at 19:00 Pantoprazole (Protonix Tab) 40 mg DAILY@06 PO Last administered on 09/11/17 05:45; Admin Dose 40 MG; Start 09/06/17 at 06:00 Heparin Sodium (Porcine) (Heparin (5000 Units/0.5 ml)) 5,000 unit Q12 SC Last administered on 09/11/17 08:49; Admin Dose 5,000 UNIT; Start 09/05/17 at 21:00 Lorazepam 0.5 mg 0.5 mg Q6H PRN IV ANXIETY; Start 09/05/17 at 19:00 Sodium Chloride (NS) 1,000 ml @ 100 mls/hr Q10H IV Last administered on 03:35; Admin Dose 100 MLS/HR; Start 09/05/17 at 18:31 Hydralazine HCl (Apresoline) 10 mg Q6H PRN IV ELEVATED BLOOD PRESSURE; Start 09/05/17 at 19:00 Clonidine (Catapres) 0.1 mg Q6H PRN PO ELEVATED BLOOD PRESSURE; Start 09/05/17 at 19:00 Nitroglycerin (Nitroglycerin (Sl Tab) 0.4 Mg) 1 tab Q5M PRN SL ANGINA; Start 09/05/17 at 19:00 Miscellaneous Information 1 ea NOTE XX ; Start 09/05/17 at 21:00 Glucose (Glutose) 15 gm Q15M PRN PO DECREASED GLUCOSE; Start 09/05/17 at 21:00 Glucose (Glutose) 22.5 gm Q15M PRN PO DECREASED GLUCOSE; Start 09/05/17 at 21: 00 Dextrose (D50w Syringe) 25 ml Q15M PRN IV DECREASED GLUCOSE; Start 09/05/17 at 21:00 Dextrose (D50w Syringe) 50 ml Q15M PRN IV DECREASED GLUCOSE; Start 09/05/17 at 21:00 Glucagon (Glucagen) 1 mg Q15M PRN IM DECREASED GLUCOSE; Start 09/05/17 at 21:00 Glucose (Glutose) 15 gm Q15M PRN BUCCAL DECREASED GLUCOSE; Start 09/05/17 at 21 :00 Diagnostic Test (Pha) (Accu-Chek) 1 ea 02 XX Last administered on 09/11/17 01 :58; Admin Dose 1 EA; Start 09/08/17 at 02:00 Cyclobenzaprine HCl (Flexeril) 10 mg TID PO Last administered on 09/11/17 08: 46; Admin Dose 10 MG; Start 09/07/17 at 13:00 Acetaminophen/ Hydrocodone Bitart 2 tab 2 tab Q6H PRN PO PAIN Last administered on 09/09/17 18:11; Admin Dose 2 TAB; Start 09/07/17 at 22:30 Ceftriaxone Sodium (Rocephin) 50 ml @ 100 mls/hr Q24H IVPB Last administered on 09/10/17 15:52; Admin Dose 100 MLS/HR; Start 09/09/17 at 16:00 Insulin Glargine (Lantus) 12 unit DAILY@20 SC Last administered on 09/10/17 20:32; Admin Dose 12 UNIT; Start 09/10/17 at 20:00 DEVENDRA HERMOSILLO NP Sep 11, 2017 14:37
[2017-09-11] MEDS: CEFTRIAXONE 2 GM/50 ML (PMX) 50 ML IVPB SCH (15:50)
[2017-09-11] MEDS: INSULIN GLARGINE [LANtus] 3 ML PEN SC SCH (20:49)
[2017-09-12] VITALS (10 sets, daily range): BP systolic 144–169; BP diastolic 68–84; PULSE 81–94; RESP 18–20
[2017-09-12] MEDS: SOD CHLORIDE 0.9% 1,000 ML IV SCH ×2 (02:09→10:31)
[2017-09-12] MEDS: ACCU-CHEK XX SCH (02:13)
[2017-09-12] MEDS: PANTOPRAZOLE (EC) 40 MG TAB PO SCH (05:41)
[2017-09-12 07:35] LABS: ABNORMAL IP MESSAGE 1; BASOPHIL # 0.1 10^3/ul (0.0-0.1); BASOPHILS % 0.8 % (0.0-2.0); EOSINOPHILS # 0.3 10^3/ul (0.0-0.5); EOSINOPHILS % 1.8 % (0.0-7.0); HEMATOCRIT 33.7 % (42.0-52.0); LYMPHOCYTES # 1.5 10^3/ul (0.8-2.9); LYMPHOCYTES % 10.1 % (15.0-51.0); MEAN CORPUSCULAR HEMOGLOBIN 29.9 pg (29.0-33.0); MEAN CORPUSCULAR HGB CONC 32.6 g/dl (32.0-37.0); MEAN CORPUSCULAR VOLUME 91.6 fl (82.0-101.0); MEAN PLATELET VOLUME 10.4 fl (7.4-10.4); MONOCYTES % 6.6 % (0.0-11.0); NEUTROPHIL # 10.7 10^3/ul (1.6-7.5); PLATELET COUNT 408 10^3/UL (140-415); POSITIVE DIFF @See below; RED BLOOD COUNT 3.68 10^6/ul (4.70-6.10); WHITE BLOOD COUNT 14.4 10^3/ul (4.8-10.8)
[2017-09-12] MEDS: INSULIN ASPART [NOVOLOG] 3 ML PEN SC SCH ×7 (07:55→21:00)
[2017-09-12] MEDS: CYCLOBENZAPRINE 10 MG TAB PO SCH ×3 (08:10→20:53)
[2017-09-12 08:18] LABS: CALCIUM 8.3 mg/dl (8.4-10.2); CREATININE 1.2 mg/dl (0.61-1.24); POTASSIUM 4.1 mmol/L (3.5-5.1)
[2017-09-12] MEDS: HEPARIN 5,000 UNIT/0.5 ML VIAL SC SCH ×2 (08:22→20:55)
[2017-09-12] MEDS: ACETAMINOPHEN 325 MG TAB PO PRN (08:52)
[2017-09-12] MEDS ORDERED: morphine 2 MG INJ IV PRN (10:00)
--- NOTE | 2017-09-12 13:40 | CONS ---
Date/Time of Note Date/Time of Note DATE: 09/12/17 TIME: 13:34 Consult Date/Type/Reason Admit Date/Time Sep 05, 2017 at 18:19 Initial Consult Date Reason for Consultation ID Objective Vital Signs Date Time Temp Pulse Resp B/P Pulse Ox O2 Delivery O2 Flow Rate FiO2 09/12/17 11:56 98.3 93 18 169/81 98 09/10/17 21:12 21 09/08/17 08:00 Nasal Cannula 2.0 Intake and Output 09/11/17 09/11/17 09/12/17 15:00 23:00 07:00 Intake Total 800 ml 420 ml Output Total 800 ml 800 ml Balance 0 ml -380 ml Results/Medications Result Diagram: 09/12/1761609/12/17616 Results 24 hrs Laboratory Tests Test 09/11/17 17:22 09/11/17 20:39 09/12/17 02:11 09/12/17 06:17 Bedside Glucose 145 148 152 White Blood Count 14.4 H Red Blood Count 3.68 L Hemoglobin 11.0 L Hematocrit 33.7 L Mean Corpuscular Volume 91.6 Mean Corpuscular Hemoglobin 29.9 Mean Corpuscular Hemoglobin Concent 32.6 Red Cell Distribution Width 15.0 H Platelet Count 408 Mean Platelet Volume 10.4 Neutrophils % 74.0 Lymphocytes % 10.1 L Monocytes % 6.6 Eosinophils % 1.8 Basophils % 0.8 Nucleated Red Blood Cells % 0.0 Neutrophils # 10.7 H Lymphocytes # 1.5 Monocytes # 1.0 H Eosinophils # 0.3 Basophils # 0.1 Nucleated Red Blood Cells # 0.0 Sodium Level 136 Potassium Level 4.1 Chloride Level 106 Carbon Dioxide Level 22 Anion Gap 12 Blood Urea Nitrogen 14 Creatinine 1.20 Glucose Level 149 Calcium Level 8.3 L Test 09/12/17 08:08 09/12/17 12:33 Bedside Glucose 135 158 Medications Current Medications Ondansetron HCl (Zofran Inj) 4 mg Q6H PRN IV NAUSEA AND/OR VOMITING; Start 09/05/17 at 19:00 Acetaminophen (Tylenol Tab) 650 mg Q6H PRN PO PAIN LEVEL 1-3 OR FEVER Last administered on 09/12/17t 08:52; Admin Dose 650 MG; Start 09/05/17 at 19:00 Acetaminophen/ Hydrocodone Bitart ([place] (5/325)) 1 tab Q6H PRN PO MODERATE PAIN LEVEL 4-6 Last administered on 09/11/17 08:54; Admin Dose 1 TAB; Start 09/05/17 at 19:00 Docusate Sodium (Colace) 100 mg Q12H PRN PO CONSTIPATION; Start 09/05/17 at 19: 00 Magnesium Hydroxide (Milk Of Mag) 30 ml DAILY PRN PO CONSTIPATION; Start at 19:00 Sodium Biphosphate/ Sodium Phosphate (Fleet Enema) 133 ml DAILY PRN MD CONSTIPATION; Start 09/05/17 at 19:00 Pantoprazole (Protonix Tab) 40 mg DAILY@06 PO Last administered on 09/12/17 05:41; Admin Dose 40 MG; Start 09/06/17 at 06:00 Heparin Sodium (Porcine) (Heparin (5000 Units/0.5 ml)) 5,000 unit Q12 SC Last administered on 09/12/17 08:22; Admin Dose 5,000 UNIT; Start 09/05/17 at 21:00 Lorazepam 0.5 mg 0.5 mg Q6H PRN IV ANXIETY; Start 09/05/17 at 19:00 Sodium Chloride (NS) 1,000 ml @ 100 mls/hr Q10H IV Last administered on 02:09; Admin Dose 100 MLS/HR; Start 09/05/17 at 18:31 Hydralazine HCl (Apresoline) 10 mg Q6H PRN IV ELEVATED BLOOD PRESSURE; Start 09/05/17 at 19:00 Clonidine (Catapres) 0.1 mg Q6H PRN PO ELEVATED BLOOD PRESSURE; Start 09/05/17 at 19:00 Nitroglycerin (Nitroglycerin (Sl Tab) 0.4 Mg) 1 tab Q5M PRN SL ANGINA; Start 09/05/17 at 19:00 Miscellaneous Information 1 ea NOTE XX ; Start 09/05/17 at 21:00 Glucose (Glutose) 15 gm Q15M PRN PO DECREASED GLUCOSE; Start 09/05/17 at 21:00 Glucose (Glutose) 22.5 gm Q15M PRN PO DECREASED GLUCOSE; Start 09/05/17 at 21: 00 Dextrose (D50w Syringe) 25 ml Q15M PRN IV DECREASED GLUCOSE; Start 09/05/17 at 21:00 Dextrose (D50w Syringe) 50 ml Q15M PRN IV DECREASED GLUCOSE; Start 09/05/17 at 21:00 Glucagon (Glucagen) 1 mg Q15M PRN IM DECREASED GLUCOSE; Start 09/05/17 at 21:00 Glucose (Glutose) 15 gm Q15M PRN BUCCAL DECREASED GLUCOSE; Start 09/05/17 at 21 :00 Diagnostic Test (Pha) (Accu-Chek) 1 ea 02 XX Last administered on 09/12/17 02 :13; Admin Dose 1 EA; Start 09/08/17 at 02:00 Cyclobenzaprine HCl (Flexeril) 10 mg TID PO Last administered on 09/12/17 12: 45; Admin Dose 10 MG; Start 09/07/17 at 13:00 Acetaminophen/ Hydrocodone Bitart 2 tab 2 tab Q6H PRN PO PAIN Last administered on 09/09/17 18:11; Admin Dose 2 TAB; Start 09/07/17 at 22:30 Ceftriaxone Sodium (Rocephin) 50 ml @ 100 mls/hr Q24H IVPB Last administered on 09/11/17 15:50; Admin Dose 100 MLS/HR; Start 09/09/17 at 16:00 Insulin Glargine (Lantus) 12 unit DAILY@20 SC Last administered on 09/11/17 20:49; Admin Dose 12 UNIT; Start 09/10/17 at 20:00 Morphine Sulfate (morphine) 2 mg Q3H PRN IV SEVERE PAIN LEVEL 7-10; Start at 10:00 Assessment/Plan Chief Complaint/Hosp Course SUBJECTIVE: The patient is awake, looks comfortable, still with significant pain and swelling of his right shoulder. No fevers. MICROBIOLOGY: Blood and fluid cultures grew oxacillin-sensitive Staphylococcus aureus, repeat blood cultures have been negative. ANTIMICROBIALS: The patient is on Rocephin PHYSICAL EXAMINATION: GENERAL: This is a well-developed elderly man who is in no distress. HEENT: Head atraumatic, normocephalic. Sclerae anicteric. Buccal mucosa pink. NECK: Supple. CHEST: Rise symmetrical. Breath sounds clear. HEART: S1, S2. ABDOMEN: Soft, bowel tones present. EXTREMITIES: With right shoulder erythema and swelling. ASSESSMENT: 1. Sepsis with fevers, leukocytosis on admission. 2. ISMAEL bacteremia 2 to #3 2. Right shoulder septic arthritis. 3. Diabetes. 4. Anemia. 5. Acute renal insufficiency. PLAN: Stable, ortho eval pending, continue on current abx, add Cipro, consider PICC placement ==>pt to be dc on IV Rocephin to complete 6 weeks treatment for septic joint DW Dr Landeros Problems: MARIA M NGUYỄN NP Sep 12, 2017 13:40
[2017-09-12] MEDS: CIPROFLOXACIN 500 MG TAB GTB SCH (17:52)
[2017-09-12] MEDS: CEFTRIAXONE 2 GM/50 ML (PMX) 50 ML IVPB SCH (18:02)
--- NOTE | 2017-09-12 18:02 | PN ---
Date/Time of Note Date/Time of Note DATE: 09/12/17 TIME: 17:57 Assessment/Plan VTE Prophylaxis VTE Prophylaxis Intervention: SCD's Lines/Catheters IV Catheter Type (from Nrsg): Peripheral IV Urinary Cath still in place: No Assessment/Plan Assessment/Plan 72 yo M admitted for R shoulder pain found to have MSSA bacteremia, source unclear. R shoulder imaging with joint effusion however aspiration with only minimal fluid aspirated which also grew out MSSA. Spoke at length with orthopedic crop consultant Dr Schafer regarding pt's R shoulder pain and the aspirate results. Per Dr Schafer, aspirate result more consistent with skin ashia/contaminant /SSTI than septic joint given low colony count of aspirate (1+), and small amount of easily aspirative fluid. He does not advise surgical intervention at this time. That if there is concern for infected joint, Dr Schafer advised repeat aspiration attempt with cell count PLAN repeat aspiration ordered ID note reviewed, will discuss PICC line with patient and family in AM CM cs for home abx will attempt to transition to PO pain meds in the AM Subjective 24 Hr Interval Summary Free Text/Dictation Pt still with R shoulder pain Exam/Review of Systems Vital Signs Vitals Vital Signs Date Time Temp Pulse Resp B/P Pulse Ox O2 Delivery O2 Flow Rate FiO2 09/12/17 13:55 97.4 85 18 156/82 98 09/10/17 21:12 21 09/08/17 08:00 Nasal Cannula 2.0 Intake and Output 09/11/17 09/11/17 09/12/17 15:00 23:00 07:00 Intake Total 800 ml 420 ml Output Total 800 ml 800 ml Balance 0 ml -380 ml Exam nad no mrg lungs clear abd soft no rashes Results Result Diagram: 09/12/1761609/12/17616 Results 24 hrs Laboratory Tests Test 09/11/17 20:39 09/12/17 02:11 09/12/17 06:17 09/12/17 08:08 Bedside Glucose 148 152 135 White Blood Count 14.4 H Red Blood Count 3.68 L Hemoglobin 11.0 L Hematocrit 33.7 L Mean Corpuscular Volume 91.6 Mean Corpuscular Hemoglobin 29.9 Mean Corpuscular Hemoglobin Concent 32.6 Red Cell Distribution Width 15.0 H Platelet Count 408 Mean Platelet Volume 10.4 Neutrophils % 74.0 Lymphocytes % 10.1 L Monocytes % 6.6 Eosinophils % 1.8 Basophils % 0.8 Nucleated Red Blood Cells % 0.0 Neutrophils # 10.7 H Lymphocytes # 1.5 Monocytes # 1.0 H Eosinophils # 0.3 Basophils # 0.1 Nucleated Red Blood Cells # 0.0 Sodium Level 136 Potassium Level 4.1 Chloride Level 106 Carbon Dioxide Level 22 Anion Gap 12 Blood Urea Nitrogen 14 Creatinine 1.20 Glucose Level 149 Calcium Level 8.3 L Test 09/12/17 12:33 09/12/17 17:42 Bedside Glucose 158 124 Medications Medications Current Medications Ondansetron HCl (Zofran Inj) 4 mg Q6H PRN IV NAUSEA AND/OR VOMITING; Start 09/05/17 at 19:00 Acetaminophen (Tylenol Tab) 650 mg Q6H PRN PO PAIN LEVEL 1-3 OR FEVER Last administered on 09/12/17 08:52; Admin Dose 650 MG; Start 09/05/17 at 19:00 Acetaminophen/ Hydrocodone Bitart ([place] (5/325)) 1 tab Q6H PRN PO MODERATE PAIN LEVEL 4-6 Last administered on 09/11/17 08:54; Admin Dose 1 TAB; Start 09/05/17 at 19:00 Docusate Sodium (Colace) 100 mg Q12H PRN PO CONSTIPATION; Start 09/05/17 at 19: 00 Magnesium Hydroxide (Milk Of Mag) 30 ml DAILY PRN PO CONSTIPATION; Start at 19:00 Sodium Biphosphate/ Sodium Phosphate (Fleet Enema) 133 ml DAILY PRN ME CONSTIPATION; Start 09/05/17 at 19:00 Pantoprazole (Protonix Tab) 40 mg DAILY@06 PO Last administered on 09/12/17 05:41; Admin Dose 40 MG; Start 09/06/17 at 06:00 Heparin Sodium (Porcine) (Heparin (5000 Units/0.5 ml)) 5,000 unit Q12 SC Last administered on 09/12/17 08:22; Admin Dose 5,000 UNIT; Start 09/05/17 at 21:00 Lorazepam (Ativan) 0.5 mg Q6H PRN IV ANXIETY; Start 09/05/17 at 19:00 Hydralazine HCl (Apresoline) 10 mg Q6H PRN IV ELEVATED BLOOD PRESSURE; Start 09/05/17 at 19:00 Clonidine (Catapres) 0.1 mg Q6H PRN PO ELEVATED BLOOD PRESSURE; Start 09/05/17 at 19:00 Nitroglycerin (Nitroglycerin (Sl Tab) 0.4 Mg) 1 tab Q5M PRN SL ANGINA; Start 09/05/17 at 19:00 Miscellaneous Information 1 ea NOTE XX ; Start 09/05/17 at 21:00 Glucose (Glutose) 15 gm Q15M PRN PO DECREASED GLUCOSE; Start 09/05/17 at 21:00 Glucose (Glutose) 22.5 gm Q15M PRN PO DECREASED GLUCOSE; Start 09/05/17 at 21: 00 Dextrose (D50w Syringe) 25 ml Q15M PRN IV DECREASED GLUCOSE; Start 09/05/17 at 21:00 Dextrose (D50w Syringe) 50 ml Q15M PRN IV DECREASED GLUCOSE; Start 09/05/17 at 21:00 Glucagon (Glucagen) 1 mg Q15M PRN IM DECREASED GLUCOSE; Start 09/05/17 at 21:00 Glucose (Glutose) 15 gm Q15M PRN BUCCAL DECREASED GLUCOSE; Start 09/05/17 at 21 :00 Diagnostic Test (Pha) (Accu-Chek) 1 ea 02 XX Last administered on 09/12/17 02 :13; Admin Dose 1 EA; Start 09/08/17 at 02:00 Cyclobenzaprine HCl (Flexeril) 10 mg TID PO Last administered on 09/12/17 12: 45; Admin Dose 10 MG; Start 09/07/17 at 13:00 Acetaminophen/ Hydrocodone Bitart 2 tab 2 tab Q6H PRN PO PAIN Last administered on 09/09/17 18:11; Admin Dose 2 TAB; Start 09/07/17 at 22:30 Ceftriaxone Sodium (Rocephin) 50 ml @ 100 mls/hr Q24H IVPB Last administered on 09/11/17 15:50; Admin Dose 100 MLS/HR; Start 09/09/17 at 16:00 Insulin Glargine (Lantus) 12 unit DAILY@20 SC Last administered on 09/11/17 20:49; Admin Dose 12 UNIT; Start 09/10/17 at 20:00 Morphine Sulfate (morphine) 2 mg Q3H PRN IV SEVERE PAIN LEVEL 7-10; Start at 10:00 Ciprofloxacin (Cipro) 500 mg BID@06,18 GTB Last administered on 09/12/17t 17: 52; Admin Dose 500 MG; Start 09/12/17 at 18:00 NINO RIVAS MD Sep 12, 2017 18:02
[2017-09-12] MEDS: INSULIN GLARGINE [LANtus] 3 ML PEN SC SCH (21:02)
[2017-09-13] MEDS: HYDROCODONE/APAP (5/325) TAB PO PRN ×2 (00:13→22:51)
[2017-09-13 02:00] VITALS: BP 162/82; RESP 20
[2017-09-13] MEDS: ACCU-CHEK XX SCH (02:00)
[2017-09-13 05:28] LABS: ABNORMAL IP MESSAGE 1; BASOPHIL # 0.1 10^3/ul (0.0-0.1); BASOPHILS % 0.6 % (0.0-2.0); EOSINOPHILS # 0.2 10^3/ul (0.0-0.5); EOSINOPHILS % 1.7 % (0.0-7.0); HEMATOCRIT 31.8 % (42.0-52.0); HEMOGLOBIN 10.6 g/dl (14.0-18.0); LYMPHOCYTES # 1.6 10^3/ul (0.8-2.9); LYMPHOCYTES % 11.2 % (15.0-51.0); MEAN CORPUSCULAR HEMOGLOBIN 29.4 pg (29.0-33.0); MEAN CORPUSCULAR HGB CONC 33.3 g/dl (32.0-37.0); MEAN CORPUSCULAR VOLUME 88.3 fl (82.0-101.0); MEAN PLATELET VOLUME 8.9 fl (7.4-10.4); MONOCYTE # 0.8 10^3/ul (0.3-0.9); MONOCYTES % 5.5 % (0.0-11.0); NEUTROPHIL # 10.5 10^3/ul (1.6-7.5); PLATELET COUNT 449 10^3/UL (140-415); POSITIVE DIFF @See below; RED CELL DISTRIBUTION WIDTH 14.9 % (11.5-14.5); WHITE BLOOD COUNT 13.9 10^3/ul (4.8-10.8)
[2017-09-13] MEDS: CIPROFLOXACIN 500 MG TAB GTB SCH ×2 (06:04→17:37)
[2017-09-13] MEDS: PANTOPRAZOLE (EC) 40 MG TAB PO SCH (06:04)
[2017-09-13 06:53] LABS: CREATININE 1.14 mg/dl (0.61-1.24); POTASSIUM 3.8 mmol/L (3.5-5.1)
[2017-09-13 07:43] VITALS: BP 134/78; RESP 16
[2017-09-13] MEDS: INSULIN ASPART [NOVOLOG] 3 ML PEN SC SCH ×7 (08:15→20:59)
[2017-09-13] MEDS: CYCLOBENZAPRINE 10 MG TAB PO SCH ×3 (08:33→20:58)
[2017-09-13] MEDS: HEPARIN 5,000 UNIT/0.5 ML VIAL SC SCH ×2 (08:37→20:42)
[2017-09-13] MEDS ORDERED: LIDOCAINE 1% (MDV) 20 ML INJ ONE (08:58)
[2017-09-13 09:37] LABS: BURR CELLS 1+ (0-0); EOSINOPHILS % (M) 1 % (0-7); METAMYELOCYTES %M 1 % (0-0); MONOCYTES % (M) 7 % (0-11); MYELOCYTES % (M) 2 % (0-0); PLATELET ESTIMATE NORMAL; POIKILOCYTOSIS 1+ (0-0); POLYCHROMASIA 1+ (0-0); REACTIVE LYMPHOCYTES% (M) 3 % (0-0)
--- NOTE | 2017-09-13 10:14 | RADRPT ---
PROCEDURE: CT guided right shoulder aspiration CLINICAL INDICATION: right shoulder effusion TECHNIQUE: Informed consent was obtained from the patient following care for explanation of the ri sks and benefits of the procedure. The patient was placed supine on the CT table. Multiple axial i mages were obtained through the patient's abdomen and pelvis. DLP n/a Bridge Inspector CTDI vol n/a Bridge Inspector One or more of the following post reduction techniques were used: - Automated exposure control. - Adjustment of the mA and/or Kv according to patient's size. - Use of iterative reconstruction technique The patient was placed supine on the CT table. Multiple axial CT images through the right shoulder w ere acquired without contrast. The right shoulder effusion was localized. A site in the patient's ri ght shoulder was selected and marked. The area was prepped and draped in the usual sterile fashion. 1% lidocaine was utilized. Under CT guidance a. 19-gauge Yueh needle was advanced into the right j oint effusion as confirmed by direct CT guidance. Approximately 3 cc of yellow fluid were aspirated with a specimen sent for culture and sensitivity. The needle was removed and a sterile dressing was applied. The patient tolerated the procedure well. Post procedure CT demonstrates no immediate complications.. The patient tolerated the procedure wel l. COMPARISON: Recent CT FINDINGS: Right shoulder joint effusion. IMPRESSION: Uncomplicated CT-guided aspiration of the right shoulder joint effusion. RPTAT: AA .Zachary Scott MD, MD Date Time Electronically viewed and signed by .Zachary Scott MD, MD on 09/13/2017 10:13 .S/
[2017-09-13 10:51] LABS: FLD MN% 51.9 %; FLD PMN% 48.1 %; FLD RBC 3 /uL; FLD WBC 1753 /cmm
[2017-09-13 12:27] LABS: FLD CLARITY HAZY; FLD COLOR YELLOW; FLD TYPE OTHERS
--- NOTE | 2017-09-13 13:48 | CONS ---
Date/Time of Note Date/Time of Note DATE: 09/13/17 TIME: 13:46 Consult Date/Type/Reason Admit Date/Time Sep 05, 2017 at 18:19 Type of Consultation: ID Objective Vital Signs Date Time Temp Pulse Resp B/P Pulse Ox O2 Delivery O2 Flow Rate FiO2 09/13/17 07:43 97.6 85 16 134/78 96 09/10/17 21:12 21 Intake and Output 09/12/17 09/12/17 09/13/17 15:00 23:00 07:00 Intake Total 700 ml 530 ml 120 ml Output Total 300 ml 300 ml Balance 700 ml 230 ml -180 ml Results/Medications Result Diagram: 09/13/17 0511 09/13/17 0511 Results 24 hrs Laboratory Tests Test 09/12/17 17:42 09/12/17 20:52 09/13/17 05:11 09/13/17 08:16 Bedside Glucose 124 148 100 White Blood Count 13.9 H Red Blood Count 3.60 L Hemoglobin 10.6 L Hematocrit 31.8 L Mean Corpuscular Volume 88.3 Mean Corpuscular Hemoglobin 29.4 Mean Corpuscular Hemoglobin Concent 33.3 Red Cell Distribution Width 14.9 H Platelet Count 449 H Mean Platelet Volume 8.9 Neutrophils % 75.0 Segmented Neutrophils % (Manual) 78 H Band Neutrophils % (Manual) 3 Lymphocytes % 11.2 L Lymphocytes % (Manual) 5 L Reactive Lymphocytes % (Manual) 3 H Monocytes % 5.5 Monocytes % (Manual) 7 Eosinophils % 1.7 Eosinophils % (Manual) 1 Basophils % 0.6 Metamyelocytes % (manual) 1 H Myelocytes % (Manual) 2 H Nucleated Red Blood Cells % 0.0 Neutrophils # 10.5 H Neutrophils # (Manual) 10.9 H Band Neutrophils # 0.4 Absolute Lymphocytes (Manual) 0.6 L Lymphocytes # 1.6 Reactive Lymphocytes # 0.4 H Monocytes # 0.8 Absolute Monocytes (Manual) 0.9 Eosinophils # 0.2 Basophils # 0.1 Metamyelocytes # 0.1 H Myelocytes # 0.2 H Nucleated Red Blood Cells # 0.0 Platelet Estimate NORMAL Polychromasia 1+ Poikilocytosis 1+ Sodium Level 137 Potassium Level 3.8 Chloride Level 106 Carbon Dioxide Level 23 Anion Gap 12 Blood Urea Nitrogen 13 Creatinine 1.14 Glucose Level 114 Calcium Level 8.0 L Test 09/13/17 09:00 09/13/17 11:49 Body Fluid Type OTHERS Body Fluid Volume 3.0 Body Fluid Color YELLOW Body Fluid Appearance HAZY Body Fluid WBC 1753 Body Fluid RBC (Auto) 3 Body Fluid Polynuclear WBCs (%) 48.1 Body Fluid Mononuclear Cells % Auto 51.9 Bedside Glucose 119 Medications Current Medications Ondansetron HCl (Zofran Inj) 4 mg Q6H PRN IV NAUSEA AND/OR VOMITING; Start 09/05/17 at 19:00 Acetaminophen (Tylenol Tab) 650 mg Q6H PRN PO PAIN LEVEL 1-3 OR FEVER Last administered on 09/12/17 08:52; Admin Dose 650 MG; Start 09/05/17 at 19:00 Acetaminophen/ Hydrocodone Bitart ([place] (5/325)) 1 tab Q6H PRN PO MODERATE PAIN LEVEL 4-6 Last administered on 09/11/17 08:54; Admin Dose 1 TAB; Start 09/05/17 at 19:00 Docusate Sodium (Colace) 100 mg Q12H PRN PO CONSTIPATION; Start 09/05/17 at 19: 00 Magnesium Hydroxide (Milk Of Mag) 30 ml DAILY PRN PO CONSTIPATION; Start at 19:00 Sodium Biphosphate/ Sodium Phosphate (Fleet Enema) 133 ml DAILY PRN [place] CONSTIPATION; Start 09/05/17 at 19:00 Pantoprazole (Protonix Tab) 40 mg DAILY@06 PO Last administered on 09/13/17 06:04; Admin Dose 40 MG; Start 09/06/17 at 06:00 Heparin Sodium (Porcine) (Heparin (5000 Units/0.5 ml)) 5,000 unit Q12 SC Last administered on 09/12/17 20:55; Admin Dose 5,000 UNIT; Start 09/05/17 at 21:00 Lorazepam (Ativan) 0.5 mg Q6H PRN IV ANXIETY; Start 09/05/17 at 19:00 Hydralazine HCl (Apresoline) 10 mg Q6H PRN IV ELEVATED BLOOD PRESSURE; Start 09/05/17 at 19:00 Clonidine (Catapres) 0.1 mg Q6H PRN PO ELEVATED BLOOD PRESSURE; Start 09/05/17 at 19:00 Nitroglycerin (Nitroglycerin (Sl Tab) 0.4 Mg) 1 tab Q5M PRN SL ANGINA; Start 09/05/17 at 19:00 Miscellaneous Information 1 ea NOTE XX ; Start 09/05/17 at 21:00 Glucose (Glutose) 15 gm Q15M PRN PO DECREASED GLUCOSE; Start 09/05/17 at 21:00 Glucose (Glutose) 22.5 gm Q15M PRN PO DECREASED GLUCOSE; Start 09/05/17 at 21: 00 Dextrose (D50w Syringe) 25 ml Q15M PRN IV DECREASED GLUCOSE; Start 09/05/17 at 21:00 Dextrose (D50w Syringe) 50 ml Q15M PRN IV DECREASED GLUCOSE; Start 09/05/17 at 21:00 Glucagon (Glucagen) 1 mg Q15M PRN IM DECREASED GLUCOSE; Start 09/05/17 at 21:00 Glucose (Glutose) 15 gm Q15M PRN BUCCAL DECREASED GLUCOSE; Start 09/05/17 at 21 :00 Diagnostic Test (Pha) (Accu-Chek) 1 ea 02 XX Last administered on 09/12/17 02 :13; Admin Dose 1 EA; Start 09/08/17 at 02:00 Cyclobenzaprine HCl (Flexeril) 10 mg TID PO Last administered on 09/13/17 12: 53; Admin Dose 10 MG; Start 09/07/17 at 13:00 Acetaminophen/ Hydrocodone Bitart 2 tab 2 tab Q6H PRN PO PAIN Last administered on 09/13/17 00:13; Admin Dose 2 TAB; Start 09/07/17 at 22:30 Ceftriaxone Sodium (Rocephin) 50 ml @ 100 mls/hr Q24H IVPB Last administered on 09/12/17 18:02; Admin Dose 100 MLS/HR; Start 09/09/17 at 16:00 Insulin Glargine (Lantus) 12 unit DAILY@20 SC Last administered on 09/12/17 21:02; Admin Dose 12 UNIT; Start 09/10/17 at 20:00 Morphine Sulfate (morphine) 2 mg Q3H PRN IV SEVERE PAIN LEVEL 7-10; Start at 10:00 Ciprofloxacin (Cipro) 500 mg BID@06,18 GTB Last administered on 09/13/17 06: 04; Admin Dose 500 MG; Start 09/12/17 at 18:00 Assessment/Plan Chief Complaint/Hosp Course SUBJECTIVE: The patient is sleeping, looks comfortable, no fevers. MICROBIOLOGY: Blood and fluid cultures grew oxacillin-sensitive Staphylococcus aureus, repeat blood cultures have been negative. ANTIMICROBIALS: The patient is on Rocephin and Cipro PHYSICAL EXAMINATION: GENERAL: This is a well-developed elderly man who is in no distress. HEENT: Head atraumatic, normocephalic. Sclerae anicteric. Buccal mucosa pink. NECK: Supple. CHEST: Rise symmetrical. Breath sounds clear. HEART: S1, S2. ABDOMEN: Soft, bowel tones present. EXTREMITIES: With right shoulder erythema and swelling. ASSESSMENT: 1. Sepsis with fevers, leukocytosis on admission. 2. ISMAEL bacteremia 2 to #3 2. Right shoulder septic joint. 3. Diabetes. 4. Anemia. 5. Acute renal insufficiency. PLAN: Remains stable, continue on current abx, f/u ortho rec-s, consider PICC placement ==>pt to be dc on IV Rocephin to complete 6 weeks treatment for septic joint DW staff Problems: MARIA M NGUYỄN NP Sep 13, 2017 13:48
[2017-09-13 14:37] VITALS: BP 134/76; RESP 16
--- NOTE | 2017-09-13 15:39 | PN ---
Date/Time of Note Date/Time of Note DATE: 09/13/17 TIME: 15:29 Assessment/Plan VTE Prophylaxis VTE Prophylaxis Intervention: SCD's Lines/Catheters IV Catheter Type (from Nrsg): Peripheral IV Urinary Cath still in place: No Assessment/Plan Assessment/Plan 72 yo M admitted for R shoulder pain found to have MSSA bacteremia, source unclear. R shoulder imaging with joint effusion however aspiration with only minimal fluid aspirated which also grew out MSSA. Repeat aspiration done today with 1700 WBCs, ~50% PMNs. Await official orthopedics note. PLAN will discuss abx with ID (ceftriaxone v ancef) PICC line tomorrow, CM aware CM cs for home abx will attempt to transition to PO pain meds in the AM will talk to ortho in AM prior to discharge Subjective 24 Hr Interval Summary Free Text/Dictation Spoke to pt and family this afternoon Exam/Review of Systems Vital Signs Vitals Vital Signs Date Time Temp Pulse Resp B/P Pulse Ox O2 Delivery O2 Flow Rate FiO2 09/13/17 14:37 97.5 93 16 134/76 96 09/10/17 21:12 21 Intake and Output 09/12/17 09/12/17 09/13/17 15:00 23:00 07:00 Intake Total 700 ml 530 ml 120 ml Output Total 300 ml 300 ml Balance 700 ml 230 ml -180 ml Exam nad no mrg lungs clear abd soft no rashes repeat aspiration results reviewed Results Result Diagram: 09/13/17 0511 09/13/17 0511 Results 24 hrs Laboratory Tests Test 09/12/17 17:42 09/12/17 20:52 09/13/17 05:11 09/13/17 08:16 Bedside Glucose 124 148 100 White Blood Count 13.9 H Red Blood Count 3.60 L Hemoglobin 10.6 L Hematocrit 31.8 L Mean Corpuscular Volume 88.3 Mean Corpuscular Hemoglobin 29.4 Mean Corpuscular Hemoglobin Concent 33.3 Red Cell Distribution Width 14.9 H Platelet Count 449 H Mean Platelet Volume 8.9 Neutrophils % 75.0 Segmented Neutrophils % (Manual) 78 H Band Neutrophils % (Manual) 3 Lymphocytes % 11.2 L Lymphocytes % (Manual) 5 L Reactive Lymphocytes % (Manual) 3 H Monocytes % 5.5 Monocytes % (Manual) 7 Eosinophils % 1.7 Eosinophils % (Manual) 1 Basophils % 0.6 Metamyelocytes % (manual) 1 H Myelocytes % (Manual) 2 H Nucleated Red Blood Cells % 0.0 Neutrophils # 10.5 H Neutrophils # (Manual) 10.9 H Band Neutrophils # 0.4 Absolute Lymphocytes (Manual) 0.6 L Lymphocytes # 1.6 Reactive Lymphocytes # 0.4 H Monocytes # 0.8 Absolute Monocytes (Manual) 0.9 Eosinophils # 0.2 Basophils # 0.1 Metamyelocytes # 0.1 H Myelocytes # 0.2 H Nucleated Red Blood Cells # 0.0 Platelet Estimate NORMAL Polychromasia 1+ Poikilocytosis 1+ Sodium Level 137 Potassium Level 3.8 Chloride Level 106 Carbon Dioxide Level 23 Anion Gap 12 Blood Urea Nitrogen 13 Creatinine 1.14 Glucose Level 114 Calcium Level 8.0 L Test 09/13/17 09:00 09/13/17 11:49 Body Fluid Type OTHERS Body Fluid Volume 3.0 Body Fluid Color YELLOW Body Fluid Appearance HAZY Body Fluid WBC 1753 Body Fluid RBC (Auto) 3 Body Fluid Polynuclear WBCs (%) 48.1 Body Fluid Mononuclear Cells % Auto 51.9 Bedside Glucose 119 Medications Medications Current Medications Ondansetron HCl (Zofran Inj) 4 mg Q6H PRN IV NAUSEA AND/OR VOMITING; Start 09/05/17 at 19:00 Acetaminophen (Tylenol Tab) 650 mg Q6H PRN PO PAIN LEVEL 1-3 OR FEVER Last administered on 09/12/17 08:52; Admin Dose 650 MG; Start 09/05/17 at 19:00 Acetaminophen/ Hydrocodone Bitart ([place] (5/325)) 1 tab Q6H PRN PO MODERATE PAIN LEVEL 4-6 Last administered on 09/11/17 08:54; Admin Dose 1 TAB; Start 09/05/17 at 19:00 Docusate Sodium (Colace) 100 mg Q12H PRN PO CONSTIPATION; Start 09/05/17 at 19: 00 Magnesium Hydroxide (Milk Of Mag) 30 ml DAILY PRN PO CONSTIPATION; Start at 19:00 Sodium Biphosphate/ Sodium Phosphate (Fleet Enema) 133 ml DAILY PRN [place] CONSTIPATION; Start 09/05/17 at 19:00 Pantoprazole (Protonix Tab) 40 mg DAILY@06 PO Last administered on 09/13/17 06:04; Admin Dose 40 MG; Start 09/06/17 at 06:00 Heparin Sodium (Porcine) (Heparin (5000 Units/0.5 ml)) 5,000 unit Q12 SC Last administered on 09/12/17 20:55; Admin Dose 5,000 UNIT; Start 09/05/17 at 21:00 Lorazepam (Ativan) 0.5 mg Q6H PRN IV ANXIETY; Start 09/05/17 at 19:00 Hydralazine HCl (Apresoline) 10 mg Q6H PRN IV ELEVATED BLOOD PRESSURE; Start 09/05/17 at 19:00 Clonidine (Catapres) 0.1 mg Q6H PRN PO ELEVATED BLOOD PRESSURE; Start 09/05/17 at 19:00 Nitroglycerin (Nitroglycerin (Sl Tab) 0.4 Mg) 1 tab Q5M PRN SL ANGINA; Start 09/05/17 at 19:00 Miscellaneous Information 1 ea NOTE XX ; Start 09/05/17 at 21:00 Glucose (Glutose) 15 gm Q15M PRN PO DECREASED GLUCOSE; Start 09/05/17 at 21:00 Glucose (Glutose) 22.5 gm Q15M PRN PO DECREASED GLUCOSE; Start 09/05/17 at 21: 00 Dextrose (D50w Syringe) 25 ml Q15M PRN IV DECREASED GLUCOSE; Start 09/05/17 at 21:00 Dextrose (D50w Syringe) 50 ml Q15M PRN IV DECREASED GLUCOSE; Start 09/05/17 at 21:00 Glucagon (Glucagen) 1 mg Q15M PRN IM DECREASED GLUCOSE; Start 09/05/17 at 21:00 Glucose (Glutose) 15 gm Q15M PRN BUCCAL DECREASED GLUCOSE; Start 09/05/17 at 21 :00 Diagnostic Test (Pha) (Accu-Chek) 1 ea 02 XX Last administered on 09/12/17 02 :13; Admin Dose 1 EA; Start 09/08/17 at 02:00 Cyclobenzaprine HCl (Flexeril) 10 mg TID PO Last administered on 09/13/17 12: 53; Admin Dose 10 MG; Start 09/07/17 at 13:00 Acetaminophen/ Hydrocodone Bitart 2 tab 2 tab Q6H PRN PO PAIN Last administered on 09/13/17 00:13; Admin Dose 2 TAB; Start 09/07/17 at 22:30 Ceftriaxone Sodium (Rocephin) 50 ml @ 100 mls/hr Q24H IVPB Last administered on 09/12/17 18:02; Admin Dose 100 MLS/HR; Start 09/09/17 at 16:00 Insulin Glargine (Lantus) 12 unit DAILY@20 SC Last administered on 09/12/17 21:02; Admin Dose 12 UNIT; Start 09/10/17 at 20:00 Morphine Sulfate (morphine) 2 mg Q3H PRN IV SEVERE PAIN LEVEL 7-10; Start at 10:00 Ciprofloxacin (Cipro) 500 mg BID@06,18 GTB Last administered on 09/13/17 06: 04; Admin Dose 500 MG; Start 09/12/17 at 18:00 NINO RIVAS MD Sep 13, 2017 15:39 NINO RIVAS MD Sep 13, 2017 15:39
--- NOTE | 2017-09-13 15:40 | CONS ---
DATE OF ADMISSION: 09/05/2017 DATE OF CONSULTATION: 09/12/2017 CHIEF COMPLAINT: Right shoulder pain. HISTORY OF PRESENT ILLNESS: This is a 72-year-old male who is admitted for sepsis complaining of ri ght shoulder pain. He states that he fell on the left shoulder a week ago. He has had difficulty m oving his shoulder. He has had prior shoulder pain. He states that the pain is on top of the shoul isaias. He rates the pain as 6/10. He has no other complaints. PAST MEDICAL HISTORY: Type 2 diabetes, hyperlipidemia. MEDICATIONS: None. PAST SURGICAL HISTORY: None. SOCIAL HISTORY: Denies tobacco, alcohol or drug use. FAMILY HISTORY: None. ALLERGIES: NO KNOWN DRUG ALLERGIES. REVIEW OF SYSTEMS: Negative except for HPI. VITAL SIGNS: 97.5, 134/76, 93 and pulse of 16. GENERAL: The patient is comfortable, resting in no acute distress. MUSCULOSKELETAL: Right shoulder exam, there is cellulitis of the anterior shoulder. He has 100 deg omar of abduction, 40 degrees of external rotation, 40 degrees of internal rotation, 110 degrees of forward flexion. He has positive Horton, positive Neer's test, 5/5 strength in the axillary, radia l musculocutaneous and median nerves. IMAGING: X-rays of the right shoulder demonstrate no fractures or dislocations. CT of the right shoulder, there is a joint effusion. No fractures or dislocations. MRI of the right shoulder. MRI of the right shoulder demonstrates a large supraspinatus and infrasp inatus tear with fatty atrophy. There is also a tear of the subscapularis tendon. There is a tear of the biceps tendon as well as the labrum. There is joint effusion. LABORATORY DATA: White blood cell count 14.4. ESR 96. CRP is 8.5. IMPRESSION: A 72-year-old male with right shoulder pain, sepsis. PLAN: He had a right shoulder aspiration by Interventional Radiology. There was minimal blood-ting ed fluid obtained. Although the cultures have grown Staph aureus, this is likely to be contaminant given the effusion on imaging and relatively small amount of nonpurulent fluid that was obtained fro m the aspiration. I recommend a repeat aspiration. I recommend antibiotics per infectious disease. I will continue to follow the patient along. No surgical intervention is planned at this time. Dictated By: BRITT BRISCOE MD SS/ESDRAS Conf#: [id number] DID#: [id number]
[2017-09-13] MEDS: CEFTRIAXONE 2 GM/50 ML (PMX) 50 ML IVPB SCH (16:01)
[2017-09-13] MEDS ORDERED: VITAMIN A & D 5 GM OINT PACKET TOP ONE (18:09)
[2017-09-13] MEDS ORDERED: LIDOCAINE 1% (MPF) 5 ML VIAL SC ONE (19:30)
[2017-09-13 19:50] VITALS: BP 147/78; RESP 20
[2017-09-13] MEDS: INSULIN GLARGINE [LANtus] 3 ML PEN SC SCH (20:00)
[2017-09-13] MEDS: D5W-0.45 NACL + KCL 20 MEQ 1,000 ML IV SCH (23:54)
[2017-09-14] MEDS: ACCU-CHEK XX SCH ×2 (00:57→23:52)
[2017-09-14 02:11] VITALS: BP 149/76; RESP 20
[2017-09-14] MEDS: PANTOPRAZOLE (EC) 40 MG TAB PO SCH (04:44)
[2017-09-14] MEDS: CIPROFLOXACIN 500 MG TAB GTB SCH ×2 (04:44→17:12)
[2017-09-14] MEDS: CYCLOBENZAPRINE 10 MG TAB PO SCH ×3 (08:03→20:50)
[2017-09-14] MEDS: HEPARIN 5,000 UNIT/0.5 ML VIAL SC SCH ×2 (08:03→20:51)
[2017-09-14 08:05] VITALS: BP 138/74; RESP 16
[2017-09-14] MEDS: INSULIN ASPART [NOVOLOG] 3 ML PEN SC SCH ×7 (08:15→20:51)
[2017-09-14] MEDS: D5W-0.45 NACL + KCL 20 MEQ 1,000 ML IV SCH (10:00)
[2017-09-14] MEDS: HYDROCODONE/APAP (5/325) TAB PO PRN (12:27)
--- NOTE | 2017-09-14 12:46 | CONS ---
Date/Time of Note Date/Time of Note DATE: 09/14/17 TIME: 12:45 Consult Date/Type/Reason Admit Date/Time Sep 05, 2017 at 18:19 Type of Consultation: ID Objective Vital Signs Date Time Temp Pulse Resp B/P Pulse Ox O2 Delivery O2 Flow Rate FiO2 09/14/17 08:05 97.9 83 16 138/74 97 09/10/17 21:12 21 Intake and Output 09/13/17 09/13/17 09/14/17 15:00 23:00 07:00 Intake Total 890 ml 860 ml Output Total 1000 ml 600 ml Balance -110 ml 260 ml Results/Medications Result Diagram: 09/13/17 0511 09/13/17 05 Results 24 hrs Laboratory Tests Test 09/13/17 17:31 09/13/17 20:57 09/14/17 07:59 09/14/17 11:54 Bedside Glucose 178 75 237 H 192 Medications Current Medications Ondansetron HCl (Zofran Inj) 4 mg Q6H PRN IV NAUSEA AND/OR VOMITING; Start 09/05/17 at 19:00 Acetaminophen (Tylenol Tab) 650 mg Q6H PRN PO PAIN LEVEL 1-3 OR FEVER Last administered on 09/12/17 08:52; Admin Dose 650 MG; Start 09/05/17 at 19:00 Acetaminophen/ Hydrocodone Bitart ([place] (5/325)) 1 tab Q6H PRN PO MODERATE PAIN LEVEL 4-6 Last administered on 09/14/17 12:27; Admin Dose 1 TAB; Start 09/05/17 at 19:00 Docusate Sodium (Colace) 100 mg Q12H PRN PO CONSTIPATION; Start 09/05/17 at 19: 00 Magnesium Hydroxide (Milk Of Mag) 30 ml DAILY PRN PO CONSTIPATION; Start at 19:00 Sodium Biphosphate/ Sodium Phosphate (Fleet Enema) 133 ml DAILY PRN [place] CONSTIPATION; Start 09/05/17 at 19:00 Pantoprazole (Protonix Tab) 40 mg DAILY@06 PO Last administered on 09/13/17 06:04; Admin Dose 40 MG; Start 09/06/17 at 06:00 Heparin Sodium (Porcine) (Heparin (5000 Units/0.5 ml)) 5,000 unit Q12 SC Last administered on 09/12/17 20:55; Admin Dose 5,000 UNIT; Start 09/05/17 at 21:00 Lorazepam (Ativan) 0.5 mg Q6H PRN IV ANXIETY; Start 09/05/17 at 19:00 Hydralazine HCl (Apresoline) 10 mg Q6H PRN IV ELEVATED BLOOD PRESSURE; Start 09/05/17 at 19:00 Clonidine (Catapres) 0.1 mg Q6H PRN PO ELEVATED BLOOD PRESSURE; Start 09/05/17 at 19:00 Nitroglycerin (Nitroglycerin (Sl Tab) 0.4 Mg) 1 tab Q5M PRN SL ANGINA; Start 09/05/17 at 19:00 Miscellaneous Information 1 ea NOTE XX ; Start 09/05/17 at 21:00 Glucose (Glutose) 15 gm Q15M PRN PO DECREASED GLUCOSE; Start 09/05/17 at 21:00 Glucose (Glutose) 22.5 gm Q15M PRN PO DECREASED GLUCOSE; Start 09/05/17 at 21: 00 Dextrose (D50w Syringe) 25 ml Q15M PRN IV DECREASED GLUCOSE; Start 09/05/17 at 21:00 Dextrose (D50w Syringe) 50 ml Q15M PRN IV DECREASED GLUCOSE; Start 09/05/17 at 21:00 Glucagon (Glucagen) 1 mg Q15M PRN IM DECREASED GLUCOSE; Start 09/05/17 at 21:00 Glucose (Glutose) 15 gm Q15M PRN BUCCAL DECREASED GLUCOSE; Start 09/05/17 at 21 :00 Diagnostic Test (Pha) (Accu-Chek) 1 ea 02 XX Last administered on 09/12/17 02 :13; Admin Dose 1 EA; Start 09/08/17 at 02:00 Cyclobenzaprine HCl (Flexeril) 10 mg TID PO Last administered on 09/13/17 20: 58; Admin Dose 10 MG; Start 09/07/17 at 13:00 Acetaminophen/ Hydrocodone Bitart 2 tab 2 tab Q6H PRN PO PAIN Last administered on 09/13/17 22:51; Admin Dose 2 TAB; Start 09/07/17 at 22:30 Ceftriaxone Sodium (Rocephin) 50 ml @ 100 mls/hr Q24H IVPB Last administered on 09/13/17 16:01; Admin Dose 100 MLS/HR; Start 09/09/17 at 16:00 Insulin Glargine (Lantus) 12 unit DAILY@20 SC Last administered on 09/12/17 21:02; Admin Dose 12 UNIT; Start 09/10/17 at 20:00 Morphine Sulfate (morphine) 2 mg Q3H PRN IV SEVERE PAIN LEVEL 7-10; Start at 10:00 Ciprofloxacin 500 mg 500 mg BID@06,18 GTB Last administered on 09/13/17 17:37 ; Admin Dose 500 MG; Start 09/12/17 at 18:00 Potassium Chloride/Dextrose/ Sod Cl (D5-1/2ns + KCl 20 Meq) 1,000 ml @ 100 mls/ hr Q10H IV Last administered on 09/13/17 23:54; Admin Dose 100 MLS/HR; Start 09/14/17 at 00:00 Assessment/Plan Chief Complaint/Hosp Course SUBJECTIVE: No acute changes per report, no fevers. MICROBIOLOGY: Blood and fluid cultures grew oxacillin-sensitive Staphylococcus aureus, repeat blood cultures have been negative. ANTIMICROBIALS: The patient is on Rocephin and Cipro PHYSICAL EXAMINATION: GENERAL: This is a well-developed elderly man who is in no distress. HEENT: Head atraumatic, normocephalic. Sclerae anicteric. Buccal mucosa pink. NECK: Supple. CHEST: Rise symmetrical. Breath sounds clear. HEART: S1, S2. ABDOMEN: Soft, bowel tones present. EXTREMITIES: With right shoulder erythema and swelling. ASSESSMENT: 1. Sepsis with fevers, leukocytosis on admission. 2. ISMAEL bacteremia 2 to #3 2. Right shoulder septic joint. 3. Diabetes. 4. Anemia. 5. Acute renal insufficiency. PLAN: Remains stable, no surgical intervention necessary per ortho note, continue on current abx, consider PICC placement ==>pt to be dc on IV Rocephin to complete 6 weeks [facility] staff Problems: MARIA M NGUYỄN NP Sep 14, 2017 12:46
[2017-09-14 15:05] VITALS: BP 159/81; RESP 16
[2017-09-14] MEDS: CEFTRIAXONE 2 GM/50 ML (PMX) 50 ML IVPB SCH (15:38)
--- NOTE | 2017-09-14 16:07 | PN ---
Date/Time of Note Date/Time of Note DATE: 09/14/17 TIME: 16:05 Assessment/Plan VTE Prophylaxis VTE Prophylaxis Intervention: SCD's Lines/Catheters IV Catheter Type (from Nrsg): Peripheral IV Urinary Cath still in place: No Assessment/Plan Assessment/Plan 72 yo M admitted for R shoulder pain found to have MSSA bacteremia, source unclear. R shoulder imaging with joint effusion however aspiration with only minimal fluid aspirated which also grew out MSSA. Repeat aspiration done today with 1700 WBCs, ~50% PMNs. Ortho in phone conversation with me today stated he does not believe pt has septic joint and will not be performing washout during this admission PLAN pt wants to think abt PICC line for another 24 hours cont current meds possibly dc in AM Subjective 24 Hr Interval Summary Free Text/Dictation ambivalent abt prospect of PICC line Exam/Review of Systems Vital Signs Vitals Vital Signs Date Time Temp Pulse Resp B/P Pulse Ox O2 Delivery O2 Flow Rate FiO2 09/14/17 15:05 97.6 85 16 159/81 95 09/10/17 21:12 21 Intake and Output 09/13/17 09/13/17 09/14/17 15:00 23:00 07:00 Intake Total 890 ml 860 ml Output Total 1000 ml 600 ml Balance -110 ml 260 ml Exam nad no mrg lungs clear abd soft no rashes Results Result Diagram: 09/13/17 0509/13/17 0511 Results 24 hrs Laboratory Tests Test 09/13/17 17:31 09/13/17 20:57 09/14/17 07:59 09/14/17 11:54 Bedside Glucose 178 75 237 H 192 Medications Medications Current Medications Ondansetron HCl (Zofran Inj) 4 mg Q6H PRN IV NAUSEA AND/OR VOMITING; Start 09/05/17 at 19:00 Acetaminophen (Tylenol Tab) 650 mg Q6H PRN PO PAIN LEVEL 1-3 OR FEVER Last administered on 09/12/17 08:52; Admin Dose 650 MG; Start 09/05/17 at 19:00 Acetaminophen/ Hydrocodone Bitart ([place] (5/325)) 1 tab Q6H PRN PO MODERATE PAIN LEVEL 4-6 Last administered on 09/14/17 12:27; Admin Dose 1 TAB; Start 09/05/17 at 19:00 Docusate Sodium (Colace) 100 mg Q12H PRN PO CONSTIPATION; Start 09/05/17 at 19: 00 Magnesium Hydroxide (Milk Of Mag) 30 ml DAILY PRN PO CONSTIPATION; Start at 19:00 Sodium Biphosphate/ Sodium Phosphate (Fleet Enema) 133 ml DAILY PRN [place] CONSTIPATION; Start 09/05/17 at 19:00 Pantoprazole (Protonix Tab) 40 mg DAILY@06 PO Last administered on 09/13/17 06:04; Admin Dose 40 MG; Start 09/06/17 at 06:00 Heparin Sodium (Porcine) (Heparin (5000 Units/0.5 ml)) 5,000 unit Q12 SC Last administered on 09/12/17 20:55; Admin Dose 5,000 UNIT; Start 09/05/17 at 21:00 Lorazepam (Ativan) 0.5 mg Q6H PRN IV ANXIETY; Start 09/05/17 at 19:00 Hydralazine HCl (Apresoline) 10 mg Q6H PRN IV ELEVATED BLOOD PRESSURE; Start 09/05/17 at 19:00 Clonidine (Catapres) 0.1 mg Q6H PRN PO ELEVATED BLOOD PRESSURE; Start 09/05/17 at 19:00 Nitroglycerin (Nitroglycerin (Sl Tab) 0.4 Mg) 1 tab Q5M PRN SL ANGINA; Start 09/05/17 at 19:00 Miscellaneous Information 1 ea NOTE XX ; Start 09/05/17 at 21:00 Glucose (Glutose) 15 gm Q15M PRN PO DECREASED GLUCOSE; Start 09/05/17 at 21:00 Glucose (Glutose) 22.5 gm Q15M PRN PO DECREASED GLUCOSE; Start 09/05/17 at 21: 00 Dextrose (D50w Syringe) 25 ml Q15M PRN IV DECREASED GLUCOSE; Start 09/05/17 at 21:00 Dextrose (D50w Syringe) 50 ml Q15M PRN IV DECREASED GLUCOSE; Start 09/05/17 at 21:00 Glucagon (Glucagen) 1 mg Q15M PRN IM DECREASED GLUCOSE; Start 09/05/17 at 21:00 Glucose (Glutose) 15 gm Q15M PRN BUCCAL DECREASED GLUCOSE; Start 09/05/17 at 21 :00 Diagnostic Test (Pha) (Accu-Chek) 1 ea 02 XX Last administered on 09/12/17 02 :13; Admin Dose 1 EA; Start 09/08/17 at 02:00 Cyclobenzaprine HCl (Flexeril) 10 mg TID PO Last administered on 09/14/17 13: 51; Admin Dose 10 MG; Start 09/07/17 at 13:00 Acetaminophen/ Hydrocodone Bitart 2 tab 2 tab Q6H PRN PO PAIN Last administered on 09/13/17 22:51; Admin Dose 2 TAB; Start 09/07/17 at 22:30 Ceftriaxone Sodium (Rocephin) 50 ml @ 100 mls/hr Q24H IVPB Last administered on 09/14/17 15:38; Admin Dose 100 MLS/HR; Start 09/09/17 at 16:00 Insulin Glargine (Lantus) 12 unit DAILY@20 SC Last administered on 09/12/17 21:02; Admin Dose 12 UNIT; Start 09/10/17 at 20:00 Morphine Sulfate (morphine) 2 mg Q3H PRN IV SEVERE PAIN LEVEL 7-10; Start at 10:00 Ciprofloxacin 500 mg 500 mg BID@06,18 GTB Last administered on 09/13/17 17:37 ; Admin Dose 500 MG; Start 09/12/17 at 18:00 Potassium Chloride/Dextrose/ Sod Cl (D5-1/2ns + KCl 20 Meq) 1,000 ml @ 100 mls/ hr Q10H IV Last administered on 09/13/17 23:54; Admin Dose 100 MLS/HR; Start 09/14/17 at 00:00 NINO RIVAS MD Sep 14, 2017 16:07
[2017-09-14 19:36] VITALS: BP 157/78; RESP 20
[2017-09-14] MEDS: INSULIN GLARGINE [LANtus] 3 ML PEN SC SCH (20:51)
[2017-09-15 02:06] VITALS: BP 159/81; RESP 20
[2017-09-15] MEDS: CIPROFLOXACIN 500 MG TAB GTB SCH ×2 (05:37→19:09)
[2017-09-15] MEDS: PANTOPRAZOLE (EC) 40 MG TAB PO SCH (05:37)
[2017-09-15 07:53] VITALS: BP 173/89; RESP 20
[2017-09-15] MEDS: INSULIN ASPART [NOVOLOG] 3 ML PEN SC SCH ×7 (08:15→21:00)
[2017-09-15] MEDS: CYCLOBENZAPRINE 10 MG TAB PO SCH ×3 (08:16→20:59)
[2017-09-15] MEDS: HEPARIN 5,000 UNIT/0.5 ML VIAL SC SCH ×2 (08:21→21:00)
[2017-09-15 13:21] VITALS: BP 172/86; RESP 20
--- NOTE | 2017-09-15 13:59 | PN ---
Date/Time of Note Date/Time of Note DATE: 09/15/17 TIME: 13:58 Assessment/Plan VTE Prophylaxis VTE Prophylaxis Intervention: SCD's Lines/Catheters IV Catheter Type (from Nrsg): Peripheral IV Urinary Cath still in place: No Assessment/Plan Assessment/Plan 72 yo M admitted for R shoulder pain found to have MSSA bacteremia, source unclear. R shoulder imaging with joint effusion however aspiration with only minimal fluid aspirated which also grew out MSSA. Repeat aspiration done today with 1700 WBCs, ~50% PMNs. 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 Exam/Review of Systems Vital Signs Vitals Vital Signs Date Time Temp Pulse Resp B/P Pulse Ox O2 Delivery O2 Flow Rate FiO2 09/15/17 13:21 98.4 89 20 172/86 96 Intake and Output 09/14/17 09/14/17 09/15/17 15:00 23:00 07:00 Intake Total 500 ml 870 ml 360 ml Output Total 750 ml 400 ml Balance 500 ml 120 ml -40 ml Exam nad no mrg lungs clear abd soft no rashes Results Result Diagram: 09/13/17 0511 09/13/17 0511 Results 24 hrs Laboratory Tests Test 09/14/17 17:07 09/14/17 20:46 09/15/17 08:15 09/15/17 11:57 Bedside Glucose 150 134 98 116 Medications Medications Current Medications Ondansetron HCl (Zofran Inj) 4 mg Q6H PRN IV NAUSEA AND/OR VOMITING; Start 09/05/17 at 19:00 Acetaminophen (Tylenol Tab) 650 mg Q6H PRN PO PAIN LEVEL 1-3 OR FEVER Last administered on 09/12/17 08:52; Admin Dose 650 MG; Start 09/05/17 at 19:00 Acetaminophen/ Hydrocodone Bitart ([place] (5/325)) 1 tab Q6H PRN PO MODERATE PAIN LEVEL 4-6 Last administered on 09/14/17 12:27; Admin Dose 1 TAB; Start 09/05/17 at 19:00 Docusate Sodium (Colace) 100 mg Q12H PRN PO CONSTIPATION; Start 09/05/17 at 19: 00 Magnesium Hydroxide (Milk Of Mag) 30 ml DAILY PRN PO CONSTIPATION; Start at 19:00 Sodium Biphosphate/ Sodium Phosphate (Fleet Enema) 133 ml DAILY PRN [place] CONSTIPATION; Start 09/05/17 at 19:00 Pantoprazole (Protonix Tab) 40 mg DAILY@06 PO Last administered on 09/15/17 05:37; Admin Dose 40 MG; Start 09/06/17 at 06:00 Heparin Sodium (Porcine) (Heparin (5000 Units/0.5 ml)) 5,000 unit Q12 SC Last administered on 09/15/17 08:21; Admin Dose 5,000 UNIT; Start 09/05/17 at 21:00 Lorazepam (Ativan) 0.5 mg Q6H PRN IV ANXIETY; Start 09/05/17 at 19:00 Hydralazine HCl (Apresoline) 10 mg Q6H PRN IV ELEVATED BLOOD PRESSURE; Start 09/05/17 at 19:00 Clonidine (Catapres) 0.1 mg Q6H PRN PO ELEVATED BLOOD PRESSURE; Start 09/05/17 at 19:00 Nitroglycerin (Nitroglycerin (Sl Tab) 0.4 Mg) 1 tab Q5M PRN SL ANGINA; Start 09/05/17 at 19:00 Miscellaneous Information 1 ea NOTE XX ; Start 09/05/17 at 21:00 Glucose (Glutose) 15 gm Q15M PRN PO DECREASED GLUCOSE; Start 09/05/17 at 21:00 Glucose (Glutose) 22.5 gm Q15M PRN PO DECREASED GLUCOSE; Start 09/05/17 at 21: 00 Dextrose (D50w Syringe) 25 ml Q15M PRN IV DECREASED GLUCOSE; Start 09/05/17 at 21:00 Dextrose (D50w Syringe) 50 ml Q15M PRN IV DECREASED GLUCOSE; Start 09/05/17 at 21:00 Glucagon (Glucagen) 1 mg Q15M PRN IM DECREASED GLUCOSE; Start 09/05/17 at 21:00 Glucose (Glutose) 15 gm Q15M PRN BUCCAL DECREASED GLUCOSE; Start 09/05/17 at 21 :00 Diagnostic Test (Pha) (Accu-Chek) 1 ea 02 XX Last administered on 09/12/17 02 :13; Admin Dose 1 EA; Start 09/08/17 at 02:00 Cyclobenzaprine HCl (Flexeril) 10 mg TID PO Last administered on 09/15/17 12: 16; Admin Dose 10 MG; Start 09/07/17 at 13:00 Acetaminophen/ Hydrocodone Bitart 2 tab 2 tab Q6H PRN PO PAIN Last administered on 09/13/17 22:51; Admin Dose 2 TAB; Start 09/07/17 at 22:30 Ceftriaxone Sodium (Rocephin) 50 ml @ 100 mls/hr Q24H IVPB Last administered on 09/14/17 15:38; Admin Dose 100 MLS/HR; Start 09/09/17 at 16:00 Insulin Glargine (Lantus) 12 unit DAILY@20 SC Last administered on 09/14/17 20:51; Admin Dose 12 UNIT; Start 09/10/17 at 20:00 Morphine Sulfate (morphine) 2 mg Q3H PRN IV SEVERE PAIN LEVEL 7-10; Start at 10:00 Ciprofloxacin (Cipro) 500 mg BID@06,18 GTB Last administered on 09/15/17 05: 37; Admin Dose 500 MG; Start 09/12/17 at 18:00 NINO RIVAS MD Sep 15, 2017 13:59
[2017-09-15] MEDS: CEFTRIAXONE 2 GM/50 ML (PMX) 50 ML IVPB SCH ×2 (16:00→17:14)
--- NOTE | 2017-09-15 16:47 | RADRPT ---
PROCEDURE: XR Chest. CLINICAL INDICATION: PICC line placement TECHNIQUE: Single frontal view of the chest was obtained COMPARISON: CHEST 09/05/2017 FINDINGS: There is a new left-sided PICC line in place with its tip overlying the cavoatrial junction. There are new mild bibasilar infiltrates. The heart is normal in size. RPTAT: AA IMPRESSION: New PICC line in appropriate position. New mild bibasilar infiltrates. .Zachary Scott MD, MD Date Time Electronically viewed and signed by .Zachary Scott MD, MD on 09/15/2017 16:46 .S/
--- NOTE | 2017-09-15 16:55 | RADRPT ---
PROCEDURE: US guidance for PICC line CLINICAL INDICATION: PICC line placement TECHNIQUE: Multiple real-time images were acquired of the patient's arm utilizing a high resolutio n transducer. This was performed by the PICC line nurse for venous access. COMPARISON: None FINDINGS: Ultrasound guidance for PICC line placement. IMPRESSION: Ultrasound guidance for PICC line placement. RPTAT: AA .Zachary Scott MD, MD Date Time Electronically viewed and signed by .Zachary Scott MD, on 09/15/2017 16:54 .S/
[2017-09-15] MEDS ORDERED: SOD CHLORIDE 0.9% 100 ML ONE (17:00)
[2017-09-15 20:00] VITALS: BP 140/77; RESP 18
[2017-09-15] MEDS: INSULIN GLARGINE [LANtus] 3 ML PEN SC SCH (21:00)
--- NOTE | 2017-09-15 21:29 | CONS ---
Date/Time of Note Date/Time of Note DATE: 09/15/17 TIME: 21:28 Consult Date/Type/Reason Admit Date/Time Sep 05, 2017 at 18:19 Type of Consultation: ID Objective Vital Signs Date Time Temp Pulse Resp B/P Pulse Ox O2 Delivery O2 Flow Rate FiO2 09/15/17 13:21 98.4 89 20 172/86 96 Intake and Output 09/14/17 09/14/17 09/15/17 15:00 23:00 07:00 Intake Total 500 ml 870 ml 360 ml Output Total 750 ml 400 ml Balance 500 ml 120 ml -40 ml Results/Medications Result Diagram: 09/13/17 0509/13/17 05 Results 24 hrs Laboratory Tests Test 09/15/17 08:15 09/15/17 11:57 09/15/17 17:12 09/15/17 20:56 Bedside Glucose 98 116 121 135 Medications Current Medications Ondansetron HCl (Zofran Inj) 4 mg Q6H PRN IV NAUSEA AND/OR VOMITING; Start 09/05/17 at 19:00 Acetaminophen (Tylenol Tab) 650 mg Q6H PRN PO PAIN LEVEL 1-3 OR FEVER Last administered on 09/12/17 08:52; Admin Dose 650 MG; Start 09/05/17 at 19:00 Acetaminophen/ Hydrocodone Bitart ([place] (5/325)) 1 tab Q6H PRN PO MODERATE PAIN LEVEL 4-6 Last administered on 09/14/17 12:27; Admin Dose 1 TAB; Start 09/05/17 at 19:00 Docusate Sodium (Colace) 100 mg Q12H PRN PO CONSTIPATION; Start 09/05/17 at 19: 00 Magnesium Hydroxide (Milk Of Mag) 30 ml DAILY PRN PO CONSTIPATION; Start at 19:00 Sodium Biphosphate/ Sodium Phosphate (Fleet Enema) 133 ml DAILY PRN [place] CONSTIPATION; Start 09/05/17 at 19:00 Pantoprazole (Protonix Tab) 40 mg DAILY@06 PO Last administered on 09/15/17 05:37; Admin Dose 40 MG; Start 09/06/17 at 06:00 Heparin Sodium (Porcine) (Heparin (5000 Units/0.5 ml)) 5,000 unit Q12 SC Last administered on 09/15/17 21:00; Admin Dose 5,000 UNIT; Start 09/05/17 at 21:00 Lorazepam (Ativan) 0.5 mg Q6H PRN IV ANXIETY; Start 09/05/17 at 19:00 Hydralazine HCl (Apresoline) 10 mg Q6H PRN IV ELEVATED BLOOD PRESSURE; Start 09/05/17 at 19:00 Clonidine (Catapres) 0.1 mg Q6H PRN PO ELEVATED BLOOD PRESSURE Last administered on 09/15/17 17:37; Admin Dose 0.1 MG; Start 09/05/17 at 19:00 Nitroglycerin (Nitroglycerin (Sl Tab) 0.4 Mg) 1 tab Q5M PRN SL ANGINA; Start 09/05/17 at 19:00 Miscellaneous Information 1 ea NOTE XX ; Start 09/05/17 at 21:00 Glucose (Glutose) 15 gm Q15M PRN PO DECREASED GLUCOSE; Start 09/05/17 at 21:00 Glucose (Glutose) 22.5 gm Q15M PRN PO DECREASED GLUCOSE; Start 09/05/17 at 21: 00 Dextrose (D50w Syringe) 25 ml Q15M PRN IV DECREASED GLUCOSE; Start 09/05/17 at 21:00 Dextrose (D50w Syringe) 50 ml Q15M PRN IV DECREASED GLUCOSE; Start 09/05/17 at 21:00 Glucagon (Glucagen) 1 mg Q15M PRN IM DECREASED GLUCOSE; Start 09/05/17 at 21:00 Glucose (Glutose) 15 gm Q15M PRN BUCCAL DECREASED GLUCOSE; Start 09/05/17 at 21 :00 Diagnostic Test (Pha) (Accu-Chek) 1 ea 02 XX Last administered on 09/12/17 02 :13; Admin Dose 1 EA; Start 09/08/17 at 02:00 Cyclobenzaprine HCl (Flexeril) 10 mg TID PO Last administered on 09/15/17 20: 59; Admin Dose 10 MG; Start 09/07/17 at 13:00 Acetaminophen/ Hydrocodone Bitart 2 tab 2 tab Q6H PRN PO PAIN Last administered on 09/13/17 22:51; Admin Dose 2 TAB; Start 09/07/17 at 22:30 Ceftriaxone Sodium (Rocephin) 50 ml @ 100 mls/hr Q24H IVPB Last administered on 09/15/17 17:14; Admin Dose 100 MLS/HR; Start 09/09/17 at 16:00 Insulin Glargine (Lantus) 12 unit DAILY@20 SC Last administered on 09/15/17 21:00; Admin Dose 12 UNIT; Start 09/10/17 at 20:00 Morphine Sulfate (morphine) 2 mg Q3H PRN IV SEVERE PAIN LEVEL 7-10; Start at 10:00 Ciprofloxacin (Cipro) 500 mg BID@06,18 GTB Last administered on 09/15/17 19: 09; Admin Dose 500 MG; Start 09/12/17 at 18:00 IV Flush (NS 10 ml) 10 ml PRN PRN IV IV PROTOCOL; Start 09/15/17 at 17:30 Assessment/Plan Chief Complaint/Hosp Course SUBJECTIVE: No acute changes per report, no fevers, awake, looks comfortable. MICROBIOLOGY: Blood and fluid cultures grew oxacillin-sensitive Staphylococcus aureus, repeat blood cultures have been negative. ANTIMICROBIALS: Rocephin and Cipro PHYSICAL EXAMINATION: GENERAL: This is a well-developed elderly man who is in no distress. HEENT: Head atraumatic, normocephalic. Sclerae anicteric. Buccal mucosa pink. NECK: Supple. CHEST: Rise symmetrical. Breath sounds clear. HEART: S1, S2. ABDOMEN: Soft, bowel tones present. EXTREMITIES: With right shoulder with improved erythema and swelling. ASSESSMENT: 1. S/p sepsis with fevers, leukocytosis on admission. 2. ISMAEL bacteremia 2 to #3 2. Right shoulder septic joint. 3. Diabetes. 4. Anemia. 5. Acute renal insufficiency. PLAN: Remains stable, no surgical intervention necessary per ortho note, continue on current abx, pending PICC==>pt to be dc on IV Rocephin to complete 6 weeks DW pt's grandson at bedside Problems: MARIA M NGUYỄN NP Sep 15, 2017 21:29
[2017-09-16] VITALS (7 sets, daily range): BP systolic 139–192; BP diastolic 67–88; PULSE 84; RESP 18–20
[2017-09-16] MEDS: ACCU-CHEK XX SCH (01:30)
[2017-09-16] MEDS: CIPROFLOXACIN 500 MG TAB GTB SCH ×2 (05:40→17:26)
[2017-09-16] MEDS: PANTOPRAZOLE (EC) 40 MG TAB PO SCH (05:40)
[2017-09-16 06:01] LABS: BASOPHIL # 0.1 10^3/ul (0.0-0.1); BASOPHILS % 0.7 % (0.0-2.0); EOSINOPHILS # 0.1 10^3/ul (0.0-0.5); EOSINOPHILS % 1.5 % (0.0-7.0); HEMATOCRIT 32.7 % (42.0-52.0); HEMOGLOBIN 10.7 g/dl (14.0-18.0); LYMPHOCYTES # 1.6 10^3/ul (0.8-2.9); LYMPHOCYTES % 17.7 % (15.0-51.0); MEAN CORPUSCULAR HEMOGLOBIN 29.4 pg (29.0-33.0); MEAN CORPUSCULAR HGB CONC 32.7 g/dl (32.0-37.0); MEAN CORPUSCULAR VOLUME 89.8 fl (82.0-101.0); MEAN PLATELET VOLUME 9.2 fl (7.4-10.4); MONOCYTE # 0.6 10^3/ul (0.3-0.9); MONOCYTES % 6.2 % (0.0-11.0); NEUTROPHIL # 6.4 10^3/ul (1.6-7.5); NEUTROPHILS % 72.3 % (39.0-77.0); PLATELET COUNT 465 10^3/UL (140-415); RED BLOOD COUNT 3.64 10^6/ul (4.70-6.10); RED CELL DISTRIBUTION WIDTH 14.4 % (11.5-14.5); WHITE BLOOD COUNT 8.8 10^3/ul (4.8-10.8)
[2017-09-16] MEDS: INSULIN ASPART [NOVOLOG] 3 ML PEN SC SCH ×7 (07:58→20:13)
[2017-09-16] MEDS: CYCLOBENZAPRINE 10 MG TAB PO SCH ×3 (07:59→20:11)
[2017-09-16] MEDS: HEPARIN 5,000 UNIT/0.5 ML VIAL SC SCH ×2 (08:07→20:12)
--- NOTE | 2017-09-16 12:35 | CONS ---
Date/Time of Note Date/Time of Note DATE: 09/16/17 TIME: 12:34 Consult Date/Type/Reason Admit Date/Time Sep 05, 2017 at 18:19 Type of Consultation: ID Objective Vital Signs Date Time Temp Pulse Resp B/P Pulse Ox O2 Delivery O2 Flow Rate FiO2 09/16/17 07:47 98.2 89 18 159/80 95 Intake and Output 09/15/17 09/15/17 09/16/17 15:00 23:00 07:00 Intake Total 440 ml 410 ml 680 ml Output Total 350 ml 750 ml Balance 440 ml 60 ml -70 ml Results/Medications Result Diagram: 09/16/17 0457 09/13/17 0511 Results 24 hrs Laboratory Tests Test 09/15/17 17:12 09/15/17 20:56 09/16/17 04:57 09/16/17 07:58 Bedside Glucose 121 135 98 White Blood Count 8.8 # Red Blood Count 3.64 L Hemoglobin 10.7 L Hematocrit 32.7 L Mean Corpuscular Volume 89.8 Mean Corpuscular Hemoglobin 29.4 Mean Corpuscular Hemoglobin Concent 32.7 Red Cell Distribution Width 14.4 Platelet Count 465 H Mean Platelet Volume 9.2 Neutrophils % 72.3 Lymphocytes % 17.7 Monocytes % 6.2 Eosinophils % 1.5 Basophils % 0.7 Nucleated Red Blood Cells % 0.0 Neutrophils # 6.4 Lymphocytes # 1.6 Monocytes # 0.6 Eosinophils # 0.1 Basophils # 0.1 Nucleated Red Blood Cells # 0.0 Test 09/16/17 11:51 Bedside Glucose 100 Medications Current Medications Ondansetron HCl (Zofran Inj) 4 mg Q6H PRN IV NAUSEA AND/OR VOMITING; Start 09/05/17 at 19:00 Acetaminophen (Tylenol Tab) 650 mg Q6H PRN PO PAIN LEVEL 1-3 OR FEVER Last administered on 09/12/17 08:52; Admin Dose 650 MG; Start 09/05/17 at 19:00 Acetaminophen/ Hydrocodone Bitart ([place] (5/325)) 1 tab Q6H PRN PO MODERATE PAIN LEVEL 4-6 Last administered on 09/14/17 12:27; Admin Dose 1 TAB; Start 09/05/17 at 19:00 Docusate Sodium (Colace) 100 mg Q12H PRN PO CONSTIPATION; Start 09/05/17 at 19: 00 Magnesium Hydroxide (Milk Of Mag) 30 ml DAILY PRN PO CONSTIPATION; Start at 19:00 Sodium Biphosphate/ Sodium Phosphate (Fleet Enema) 133 ml DAILY PRN [place] CONSTIPATION; Start 09/05/17 at 19:00 Pantoprazole (Protonix Tab) 40 mg DAILY@06 PO Last administered on 09/16/17 05:40; Admin Dose 40 MG; Start 09/06/17 at 06:00 Heparin Sodium (Porcine) (Heparin (5000 Units/0.5 ml)) 5,000 unit Q12 SC Last administered on 09/16/17 08:07; Admin Dose 5,000 UNIT; Start 09/05/17 at 21:00 Lorazepam (Ativan) 0.5 mg Q6H PRN IV ANXIETY; Start 09/05/17 at 19:00 Hydralazine HCl (Apresoline) 10 mg Q6H PRN IV ELEVATED BLOOD PRESSURE; Start 09/05/17 at 19:00 Clonidine (Catapres) 0.1 mg Q6H PRN PO ELEVATED BLOOD PRESSURE Last administered on 09/15/17 17:37; Admin Dose 0.1 MG; Start 09/05/17 at 19:00 Nitroglycerin (Nitroglycerin (Sl Tab) 0.4 Mg) 1 tab Q5M PRN SL ANGINA; Start 09/05/17 at 19:00 Miscellaneous Information 1 ea NOTE XX ; Start 09/05/17 at 21:00 Glucose (Glutose) 15 gm Q15M PRN PO DECREASED GLUCOSE; Start 09/05/17 at 21:00 Glucose (Glutose) 22.5 gm Q15M PRN PO DECREASED GLUCOSE; Start 09/05/17 at 21: 00 Dextrose (D50w Syringe) 25 ml Q15M PRN IV DECREASED GLUCOSE; Start 09/05/17 at 21:00 Dextrose (D50w Syringe) 50 ml Q15M PRN IV DECREASED GLUCOSE; Start 09/05/17 at 21:00 Glucagon (Glucagen) 1 mg Q15M PRN IM DECREASED GLUCOSE; Start 09/05/17 at 21:00 Glucose (Glutose) 15 gm Q15M PRN BUCCAL DECREASED GLUCOSE; Start 09/05/17 at 21 :00 Diagnostic Test (Pha) (Accu-Chek) 1 ea 02 XX Last administered on 09/12/17 02 :13; Admin Dose 1 EA; Start 09/08/17 at 02:00 Cyclobenzaprine HCl (Flexeril) 10 mg TID PO Last administered on 09/16/17 11: 52; Admin Dose 10 MG; Start 09/07/17 at 13:00 Acetaminophen/ Hydrocodone Bitart 2 tab 2 tab Q6H PRN PO PAIN Last administered on 09/13/17 22:51; Admin Dose 2 TAB; Start 09/07/17 at 22:30 Ceftriaxone Sodium (Rocephin) 50 ml @ 100 mls/hr Q24H IVPB Last administered on 09/15/17 17:14; Admin Dose 100 MLS/HR; Start 09/09/17 at 16:00 Insulin Glargine (Lantus) 12 unit DAILY@20 SC Last administered on 09/15/17 21:00; Admin Dose 12 UNIT; Start 09/10/17 at 20:00 Morphine Sulfate (morphine) 2 mg Q3H PRN IV SEVERE PAIN LEVEL 7-10; Start at 10:00 Ciprofloxacin (Cipro) 500 mg BID@06,18 GTB Last administered on 09/16/17 05: 40; Admin Dose 500 MG; Start 09/12/17 at 18:00 IV Flush (NS 10 ml) 10 ml PRN PRN IV IV PROTOCOL Last administered on 21:00; Admin Dose 10 ML; Start 09/15/17 at 17:30 Assessment/Plan Chief Complaint/Hosp Course SUBJECTIVE: No acute changes per report, no fevers, awake, looks comfortable. MICROBIOLOGY: Blood and fluid cultures grew oxacillin-sensitive Staphylococcus aureus, repeat blood cultures have been negative. ANTIMICROBIALS: Rocephin and Cipro PHYSICAL EXAMINATION: GENERAL: This is a well-developed elderly man who is in no distress. HEENT: Head atraumatic, normocephalic. Sclerae anicteric. Buccal mucosa pink. NECK: Supple. CHEST: Rise symmetrical. Breath sounds clear. HEART: S1, S2. ABDOMEN: Soft, bowel tones present. EXTREMITIES: With right shoulder resolved erythema ASSESSMENT: 1. S/p sepsis with fevers, leukocytosis on admission. 2. ISMAEL bacteremia 2 to #3 2. Right shoulder septic joint. 3. Diabetes. 4. Anemia. 5. Acute renal insufficiency. PLAN: Remains stable, no surgical intervention necessary per ortho note, pending dc on IV Rocephin to complete 6 weeks, PICC placed DW pt's grandson at bedside Problems: MARIA M NGUYỄN NP Sep 16, 2017 12:35
--- NOTE | 2017-09-16 16:37 | PN ---
Date/Time of Note Date/Time of Note DATE: 09/16/17 TIME: 16:35 Assessment/Plan VTE Prophylaxis VTE Prophylaxis Intervention: SCD's Lines/Catheters IV Catheter Type (from Nrsg): PICC Line Central line still needed: Yes Urinary Cath still in place: No Assessment/Plan Assessment/Plan 72 yo M admitted for R shoulder pain found to have MSSA bacteremia, source unclear. R shoulder imaging with joint effusion however aspiration with only minimal fluid aspirated which also grew out MSSA. Repeat aspiration done with 1700 WBCs, ~50% PMNs. Ortho in phone conversation with me today stated he does not believe pt has septic joint and will not be performing washout during this admission PLAN PICC and 6 weeks IV abx cont current meds only barrier to discharge is PT clearance. I spoke with PT dept this AM requesting updated recs however does not appear this has happened. CM aware. Will f/u with PT in AM Subjective 24 Hr Interval Summary Free Text/Dictation Pt feeling much better Exam/Review of Systems Vital Signs Vitals Vital Signs Date Time Temp Pulse Resp B/P Pulse Ox O2 Delivery O2 Flow Rate FiO2 09/16/17 12:57 98.8 91 18 139/69 97 Intake and Output 09/15/17 09/15/17 09/16/17 15:00 23:00 07:00 Intake Total 440 ml 410 ml 680 ml Output Total 350 ml 750 ml Balance 440 ml 60 ml -70 ml Exam nad no mrg lungs clear abd soft no rashes still discomfort with moving R shoulder Results Result Diagram: 09/16/17 0457 09/13/17 0511 Results 24 hrs Laboratory Tests Test 09/15/17 17:12 09/15/17 20:56 09/16/17 04:57 09/16/17 07:58 Bedside Glucose 121 135 98 White Blood Count 8.8 # Red Blood Count 3.64 L Hemoglobin 10.7 L Hematocrit 32.7 L Mean Corpuscular Volume 89.8 Mean Corpuscular Hemoglobin 29.4 Mean Corpuscular Hemoglobin Concent 32.7 Red Cell Distribution Width 14.4 Platelet Count 465 H Mean Platelet Volume 9.2 Neutrophils % 72.3 Lymphocytes % 17.7 Monocytes % 6.2 Eosinophils % 1.5 Basophils % 0.7 Nucleated Red Blood Cells % 0.0 Neutrophils # 6.4 Lymphocytes # 1.6 Monocytes # 0.6 Eosinophils # 0.1 Basophils # 0.1 Nucleated Red Blood Cells # 0.0 Test 09/16/17 11:51 Bedside Glucose 100 Medications Medications Current Medications Ondansetron HCl (Zofran Inj) 4 mg Q6H PRN IV NAUSEA AND/OR VOMITING; Start 09/05/17 at 19:00 Acetaminophen (Tylenol Tab) 650 mg Q6H PRN PO PAIN LEVEL 1-3 OR FEVER Last administered on 09/12/17 08:52; Admin Dose 650 MG; Start 09/05/17 at 19:00 Acetaminophen/ Hydrocodone Bitart ([place] (5/325)) 1 tab Q6H PRN PO MODERATE PAIN LEVEL 4-6 Last administered on 09/14/17 12:27; Admin Dose 1 TAB; Start 09/05/17 at 19:00 Docusate Sodium (Colace) 100 mg Q12H PRN PO CONSTIPATION; Start 09/05/17 at 19: 00 Magnesium Hydroxide (Milk Of Mag) 30 ml DAILY PRN PO CONSTIPATION; Start at 19:00 Sodium Biphosphate/ Sodium Phosphate (Fleet Enema) 133 ml DAILY PRN [place] CONSTIPATION; Start 09/05/17 at 19:00 Pantoprazole (Protonix Tab) 40 mg DAILY@06 PO Last administered on 09/16/17 05:40; Admin Dose 40 MG; Start 09/06/17 at 06:00 Heparin Sodium (Porcine) (Heparin (5000 Units/0.5 ml)) 5,000 unit Q12 SC Last administered on 09/16/17 08:07; Admin Dose 5,000 UNIT; Start 09/05/17 at 21:00 Lorazepam (Ativan) 0.5 mg Q6H PRN IV ANXIETY; Start 09/05/17 at 19:00 Hydralazine HCl (Apresoline) 10 mg Q6H PRN IV ELEVATED BLOOD PRESSURE; Start 09/05/17 at 19:00 Clonidine (Catapres) 0.1 mg Q6H PRN PO ELEVATED BLOOD PRESSURE Last administered on 09/15/17 17:37; Admin Dose 0.1 MG; Start 09/05/17 at 19:00 Nitroglycerin (Nitroglycerin (Sl Tab) 0.4 Mg) 1 tab Q5M PRN SL ANGINA; Start 09/05/17 at 19:00 Miscellaneous Information 1 ea NOTE XX ; Start 09/05/17 at 21:00 Glucose (Glutose) 15 gm Q15M PRN PO DECREASED GLUCOSE; Start 09/05/17 at 21:00 Glucose (Glutose) 22.5 gm Q15M PRN PO DECREASED GLUCOSE; Start 09/05/17 at 21: 00 Dextrose (D50w Syringe) 25 ml Q15M PRN IV DECREASED GLUCOSE; Start 09/05/17 at 21:00 Dextrose (D50w Syringe) 50 ml Q15M PRN IV DECREASED GLUCOSE; Start 09/05/17 at 21:00 Glucagon (Glucagen) 1 mg Q15M PRN IM DECREASED GLUCOSE; Start 09/05/17 at 21:00 Glucose (Glutose) 15 gm Q15M PRN BUCCAL DECREASED GLUCOSE; Start 09/05/17 at 21 :00 Diagnostic Test (Pha) (Accu-Chek) 1 ea 02 XX Last administered on 09/12/17 02 :13; Admin Dose 1 EA; Start 09/08/17 at 02:00 Cyclobenzaprine HCl (Flexeril) 10 mg TID PO Last administered on 09/16/17 11: 52; Admin Dose 10 MG; Start 09/07/17 at 13:00 Acetaminophen/ Hydrocodone Bitart 2 tab 2 tab Q6H PRN PO PAIN Last administered on 09/13/17 22:51; Admin Dose 2 TAB; Start 09/07/17 at 22:30 Ceftriaxone Sodium (Rocephin) 50 ml @ 100 mls/hr Q24H IVPB Last administered on 09/15/17 17:14; Admin Dose 100 MLS/HR; Start 09/09/17 at 16:00 Insulin Glargine (Lantus) 12 unit DAILY@20 SC Last administered on 09/15/17 21:00; Admin Dose 12 UNIT; Start 09/10/17 at 20:00 Morphine Sulfate (morphine) 2 mg Q3H PRN IV SEVERE PAIN LEVEL 7-10; Start at 10:00 Ciprofloxacin (Cipro) 500 mg BID@06,18 GTB Last administered on 09/16/17 05: 40; Admin Dose 500 MG; Start 09/12/17 at 18:00 IV Flush (NS 10 ml) 10 ml PRN PRN IV IV PROTOCOL Last administered on 10/19/ 17at 21:00; Admin Dose 10 ML; Start 09/15/17 at 17:30 NINO RIVAS MD Sep 16, 2017 16:37
[2017-09-16] MEDS: CEFTRIAXONE 2 GM/50 ML (PMX) 50 ML IVPB SCH (17:26)
[2017-09-16] MEDS: INSULIN GLARGINE [LANtus] 3 ML PEN SC SCH (20:11)
[2017-09-16] MEDS: ACETAMINOPHEN 325 MG TAB PO PRN (20:30)
[2017-09-17 02:00] VITALS: BP 138/78; PULSE 79; RESP 18
[2017-09-17] MEDS: ACCU-CHEK XX SCH (02:00)
[2017-09-17] MEDS: CIPROFLOXACIN 500 MG TAB GTB SCH (05:44)
[2017-09-17] MEDS: PANTOPRAZOLE (EC) 40 MG TAB PO SCH (05:44)
[2017-09-17 07:46] VITALS: BP 133/78; RESP 18
[2017-09-17] MEDS: INSULIN ASPART [NOVOLOG] 3 ML PEN SC SCH ×4 (08:15→12:35)
[2017-09-17] MEDS: HEPARIN 5,000 UNIT/0.5 ML VIAL SC SCH (08:41)
[2017-09-17] MEDS: CYCLOBENZAPRINE 10 MG TAB PO SCH ×2 (08:42→13:00)
[2017-09-17] MEDS ORDERED: LANT3I SC (11:35)
[2017-09-17] MEDS ORDERED: NOVO3I SC (11:35)
--- NOTE | 2017-09-17 11:37 | PDOCDIS ---
Discharge Instructions CONDITION Patient Condition: Stable HOME CARE INSTRUCTIONS: Special Diet: Carbohydrate Controlled FOLLOW UP/APPOINTMENTS Follow-up Plan Follow up with your regular doctor within 2 weeks regarding your poorly controlled diabetes Check your blood sugars before breakfast and before each meal and bring those results to your regular doctor Follow up with the infectious disease doctor within 4 weeks to get more antibiotics and see if any additional follow up is needed Dr Landeros Office Address [address] [address] Office NINO RIVAS MD Sep 17, 2017 11:37
[2017-09-17] MEDS ORDERED: CIPR500T4 PO (11:48)
--- NOTE | 2017-09-17 11:53 | DS ---
Date/Time of Note Date/Time of Note DATE: 09/17/17 TIME: 11:37 Discharge Summary Admission/Discharge Info Admit Date/Time Sep 05, 2017 at 18:19 Discharge Date/Time Discharge Diagnosis sepsis from MSSA bacteremia, possible septic joint (R shoulder) Patient Condition: Stable Consults ID, ortho Procedures MICRO 10.9 Blood cultures MSSA 2/2 10.11 Blood cultures ng 2/2 10.13 R shoulder aspirate: MSSA 10.17 R shoulder aspirate ng IMAGING/INTERVENTIONS 10.11 R shoulder MRI IMPRESSION: 1. Retracted tears of the supraspinatus and infraspinatus, with fatty atrophy and edema within these muscles compatible with chronicity. 2. At least a partial tear of the subscapularis, evidenced by attenuation. 3. Tear of the intra-articular biceps with likely retraction. 4. Tears of the posterior superior and superior posterior glenoid labrum. 5. Mild to moderate joint effusion throughout the shoulder. 10.13: R shoulder aspiration by IR, 0.5mL removed. culture +MSSA (see above). cell count not done. 10.17: R shoulder aspirated by IR, 3mL removed. culture negative. ~1700 WBCs, 48 % PMNs 10.19 PICC line placed 10.13 TTE Conclusions 1. Normal left ventricular cavity size. Normal left ventricular wall thickness. Mild left ventricular systolic dysfunction. Ejection fraction is visually estimated at 45-50 %. Tissue Doppler/Mitral Doppler indices are consistent with impaired relaxation (Stage I diastolic dysfunction). These segments of the LV are hypokinetic inferoseptum mid segment. 2. Mitral valve leaflets appear moderately thickened. Mild mitral annular calcification. Trace mitral regurgitation. 3. No significant aortic stenosis or insufficiency. Aortic cusps appear mildly calcified. Trace aortic valve regurgitation. 4. Normal appearance of the tricuspid valve. Estimated peak PA systolic pressure 27 mmHg. There is mild tricuspid regurgitation. 5. Normal pulmonic valve appearance. There is trace pulmonic regurgitation. 6. No definite vegetations noted on any of the well visualized valvaular apparati but cannot completely rule out due to poor windows and focal thickenening of the mitral valve apparatus. Consider BEAR if concern persists. a1c 12.9 Hx of Present Illness A 72-year-old male, past medical history of type 2 diabetes and high cholesterol who was brought in by family because of weakness and fever. Apparently, the patient had hurt his right shoulder 2 days ago prior to admission after trying to pull at something, he has been complaining of right shoulder pain and also right knee pain. He has also been having positive chills, questionable palpitations, denies any fevers, no chest pain. No nausea, vomiting, no diarrhea. No constipation. No abdominal pain. No headaches or dizziness. When he came in, he was found to have multiple problems including a very low sodium of 119. His white count was elevated at 25.2 with sugars were elevated in the 500 range although the bicarb was low normal range. No significant gap noted. The patient appeared to be dehydrated as well and was given insulin, antibiotics and fluids in the ER. Hospital Course 72 yo M admitted for R shoulder pain found to have MSSA bacteremia, source unclear. R shoulder imaging with joint effusion however aspiration with only minimal fluid aspirated which also grew out MSSA. Repeat aspiration done with 1700 WBCs, ~50% PMNs. Ortho does not believe pt has septic joint and will not be performing washout during this admission. ID advised 6 weeks of IV antibiotics. For R shoulder pain, pt discharged home with home PT. Pt also with very poorly controlled DM, started on insulin. DC summary personally faxed to PCP's office and copy provided to patient prior to discharge Follow-up Plan Follow up with your regular doctor within 2 weeks regarding your poorly controlled diabetes Check your blood sugars before breakfast and before each meal and bring those results to your regular doctor Follow up with the infectious disease doctor within 4 weeks to get more antibiotics and see if any additional follow up is needed Dr Horne Office Address [address] [facility] [address] [place] [address] Narda Mak MD Time spent on discharge: > 30 minutes Pending Labs Laboratory Tests Test 09/16/17 11:51 09/16/17 17:25 09/16/17 20:08 09/17/17 08:13 Bedside Glucose 100mg/dL (70-220) 103mg/dL (70-220) 110mg/dL (70-220) 95mg/dL (70-220) Copies To: CC: BJ HORNE MD; BRITT BRISCOE MD, ELLEN MD Sep 17, 2017 11:47
[2017-09-17] MEDS: CEFTRIAXONE 2 GM/50 ML (PMX) 50 ML IVPB SCH (13:12)
[2017-09-17 13:40] VITALS: BP 115/56; RESP 18
== END 2017-09-17 18:10 | disposition home health service (06) | DRG 872 ==
LOC: E/R 13:31 → TEL 18:19 → MS2 09-12 11:35
PROVIDERS: ADMIT Hospitalist; ATTEND Hospitalist
PROC: 0R9J3ZX Drainage of Right Shoulder Joint, Percutaneous Approach, Diagnostic (ICD-10-PCS; principal; 2017-09-09)
PROC: 0R9J3ZX Drainage of Right Shoulder Joint, Percutaneous Approach, Diagnostic (ICD-10-PCS; 2017-09-13)
PROC: 02HV33Z Insertion of Infusion Device into Superior Vena Cava, Percutaneous Approach (ICD-10-PCS; 2017-09-15)
DX: A41.01 Sepsis due to Methicillin susceptible Staphylococcus aureus (principal); N17.9 Acute kidney failure, unspecified; E11.65 Type 2 diabetes mellitus with hyperglycemia; D64.9 Anemia, unspecified; M00.011 Staphylococcal arthritis, right shoulder; E87.1 Hypo-osmolality and hyponatremia; E78.00 Pure hypercholesterolemia, unspecified; R65.20 Severe sepsis without septic shock; M25.411 Effusion, right shoulder; B95.61 Methicillin susceptible Staphylococcus aureus infection as the cause of diseases classified elsewhere; Z91.81 History of falling; Z79.4 Long term (current) use of insulin
CPT/HCPCS: 36415; 36569; 36600; 71010; 73200; 73221; 73560; 76937; 77012; 80048; 80053; 80061; 80202; 81001; 81003; 82803; 82962; 83036; 83605; 83735; 84100; 84439; 84443; 84484; 85025; 85610; 85651; 85730; 86140; 87040; 87070; 87086; 89051; 93005; 93306; 96372; 96374; 96375; 97116; 97162; 97530; J0360; J1450; J1644; J1815; J2270; J2405; J2543; J3370; J3480; J7030; J7040; J7050

== ENCOUNTER 2018-11-30 21:20 | Inpatient (IN) | payer MEDICAID, OTHER ==
[~2018-11-30] VITALS: Ht 170.2 cm; Wt 74.5 kg
[~2018-11-30 21:20] MED LIST: CIPR500T4 PO; LANT3I SC; NOVO3I SC
[2018-11-30] MEDS ORDERED: ALBUTEROL 0.5% (NEB) 2.5 MG/0.5 ML AMP INH STA (21:58)
[2018-11-30] MEDS ORDERED: METHYLPREDNISOLONE 125 MG INJ IV STA (21:58)
[2018-11-30] MEDS ORDERED: IPRATROPIUM (NEB) 0.5 MG/2.5 ML AMP INH STA (21:58)
[2018-11-30] MEDS ORDERED: SODIUM CHLORIDE 0.9% 1L BAG IV* STA (22:47)
[2018-11-30] MEDS ORDERED: CEFEPIME 2GM/50 ML (PMX) 50 ML IVPB STA (22:47)
[2018-11-30] MEDS ORDERED: VANCOMYCIN 1 GM (PMX) 250 ML IVPB ONE (23:00)
--- NOTE | 2018-11-30 23:08 | ERD ---
ER Documentation Chief Complaint Chief Complaint sob/abd pain x 2 hours HPI This is a 73-year-old male with a chronic cough for the past couple days with productive sputum. He says today he is short of breath over the past 20 minutes before coming in. He is having some audible expiratory wheezes but says he does not have asthma or COPD. No chest pain, feels like his abdomen is bloated but no pain in the abdomen no GI symptoms. No neurological symptoms no swelling in the legs ROS All systems reviewed and are negative except as per history of present illness. Medications Home Meds Active Scripts Insulin Aspart* (Novolog Insulin Pen*) 100 Unit/Ml Soln, 2 UNIT SC WITH MEALS for 30 Days, #2 UNITS Prov:NINO RIVAS MD 09/17/17 Insulin Glargine* (Lantus*) 100 Unit/Ml Soln, 12 UNIT SC DAILY@20 for 30 Days, #1 VIAL Prov:NINO RIVAS MD 09/17/17 Discontinued Scripts Ciprofloxacin Hcl* (Ciprofloxacin Hcl*) 500 Mg Tablet, 500 MG PO BID@06,18 for 32 Days, #64 TAB Prov:NINO RIVAS MD 09/17/17 Allergies Allergies: Coded Allergies: No Known Allergy (Unverified , 11/30/18) PMhx/Soc History of Surgery: No Anesthesia Reaction: No Hx Neurological Disorder: No Hx Respiratory Disorders: No Hx Cardiac Disorders: Yes (HTN) Hx Psychiatric Problems: No Hx Miscellaneous Medical Probl: Yes (See EMR ) Hx Alcohol Use: No Hx Substance Use: No Hx Tobacco Use: No FmHx Family History: No coronary disease Physical Exam Vitals Vital Signs Date Temp Pulse Resp B/P (MAP) Pulse Ox O2 O2 Flow FiO2 Time Delivery Rate 11/30/18 100 26 122/78 96 Nasal 2.0 23:30 (93) Cannula 11/30/18 98.0 102 20 122/72 97 Nasal 2.0 23:19 (89) Cannula 11/30/18 111 32 99 Nasal 4.0 22:05 Cannula 11/30/18 Nasal 2.0 21:50 Cannula 11/30/18 Nasal 2 21:40 Cannula 11/30/18 97.1 117 24 218/134 91 21:23 (162) Physical Exam Const: Well-developed, well-nourished Head: Atraumatic, normocephalic Eyes: Normal Conjunctiva, PERRLA, EOMI, normal sclera, no nystagmus ENT: Normal External Ears, Nose and Mouth, moist mucus membranes. Neck: Full range of motion. No meningismus, no lymphadenopathy. Resp: [Coarse lung sounds are both lung mcfadden with decreased breath sounds and expiratory wheezes Cardio: Regular rate and rhythm, no murmurs, S1 S2 present Abd: Soft, non tender x 4, non distended. Normal bowel sounds, no guarding or rebound, no pulsitile abdominal masses or bruits Skin: No petechiae or rashes, no ecchymosis , no maculopapular rash Back: No midline or flank tenderness Ext: No cyanosis, or edema, FROM x 4, normal inspection, neurovascularly intact x 4 Neur: Awake and alert, STR 5/5 x 4, sensation intact x 4, no focal findings, cerebellum intact Psych: Normal Mood and Affect Result Diagram: 11/30/18219911/30/182199 Results 24 hrs Laboratory Tests Test 11/30/18 22:00 11/30/18 22:43 12/01/18 01:05 White Blood Count 9.8 10^3/ul Red Blood Count 4.25 10^6/ul Hemoglobin 13.1 g/dl Hematocrit 39.6 % Mean Corpuscular Volume 93.2 fl Mean Corpuscular Hemoglobin 30.8 pg Mean Corpuscular Hemoglobin Concent 33.1 g/dl Red Cell Distribution Width 13.5 % Platelet Count 218 10^3/UL Mean Platelet Volume 10.6 fl Immature Granulocytes % 0.200 % Neutrophils % 51.5 % Lymphocytes % 36.7 % Monocytes % 7.0 % Eosinophils % 3.9 % Basophils % 0.7 % Nucleated Red Blood Cells % 0.0 /100WBC Immature Granulocytes # 0.020 10^3/ul Neutrophils # 5.0 10^3/ul Lymphocytes # 3.6 10^3/ul Monocytes # 0.7 10^3/ul Eosinophils # 0.4 10^3/ul Basophils # 0.1 10^3/ul Nucleated Red Blood Cells # 0.0 10^3/ul Prothrombin Time 14.0 Sec Prothrombin Time Ratio 1.1 INR International Normalized Ratio 1.07 Activated Partial Thromboplast Time 28.0 Sec Sodium Level 142 mmol/L Potassium Level 4.4 mmol/L Chloride Level 102 mmol/L Carbon Dioxide Level 28 mmol/L Anion Gap 12 Blood Urea Nitrogen 33 mg/dl Creatinine 1.66 mg/dl Est Glomerular Filtrat Rate mL/min mL/min Glucose Level 284 mg/dl Calcium Level 8.9 mg/dl Total Bilirubin 0.1 mg/dl Direct Bilirubin 0.00 mg/dl Indirect Bilirubin 0.1 mg/dl Aspartate Amino Transf (AST/SGOT) 30 IU/L Alanine Aminotransferase (ALT/SGPT) 22 IU/L Alkaline Phosphatase 113 IU/L Troponin I 0.022 ng/ml B-Type Natriuretic Peptide 4200 PG/ML Total Protein 7.4 g/dl Albumin 4.2 g/dl Globulin 3.20 g/dl Albumin/Globulin Ratio 1.31 POC Venous Lactate 2.1 mmol/L 2.3 mmol/L Current Medications Medications Dose Sig/Parker Start Time Status Last (Trade) Ordered Route PRN Stop Time Admin Dose Reason Admin Albuterol 10 mg ONCE STAT 11/30/18 DC 11/30/18 (Proventil INH 21:58 11/30/18 22:05 0.5% (Neb)) 21:59 Ipratropium 1 mg ONCE STAT 11/30/18 DC 11/30/18 [place] INH 21:58 11/30/18 22:05 (Atrovent 22:00 0.02% (Neb)) 125 mg ONCE STAT 11/30/18 DC 11/30/18 Methylprednis IV 21:58 11/30/18 22:21 olone Sodium 22:00 Succinate (Solu-Medrol) Sodium 2,590 ml BOLUS OVER 2 11/30/18 DC 11/30/18 Chloride HOURS STAT 22:47 11/30/18 23:05 (NS) IV* 22:49 Cefepime HCl 50 ml @ ONCE STAT 11/30/18 DC 11/30/18 100 mls/hr IVPB 22:47 11/30/18 23:04 23:16 Vancomycin 250 ml @ ONCE ONCE 11/30/18 DC 11/30/18 HCl 125 mls/hr IVPB 23:00 12/01/18 23:05 00:59 Procedures/MDM MR #: [id number] DOS: 11/30/18 Ordering MD: BUSTER CABRAL DO Location: E/R Room/Bed: PROCEDURE: XR Chest. CLINICAL INDICATION: Dyspnea. TECHNIQUE: Single frontal chest x-ray. COMPARISON: DR ARSHAD 09/05/2017 FINDINGS: Diffuse increased interstitial opacification / edema throughout the lungs, moderate in degree and new when compared to the prior study. The cardiomediastinal silhouette is unremarkable. There is no pneumothorax. Mild degenerative enthesopathy of the spine. IMPRESSION: 1. Newly developed increased interstitial opacification / edema throughout the lungs, moderate in degree. Interstitial pneumonia is within the differential. RPTAT: PP .Tony Caal MD, MD Date Time Electronically viewed and signed by .Tony Caal MD, MD on 11/30/2018 23:09 .B/ CC: BUSTER CABRAL DO [phone] Admit MDM: Patient's infectious symptoms have not stabilized and the patient is at risk of rapid decompensation. The patient will be admitted for careful hydration, antibiotic therapy, and infectious source control. Severe Sepsis criteria: Infectious source: End organ damage indicated by: Lactate > 2.0 mmol/L Hypotension (SBP < 90 or >40 mmHG drop or MAP < 65) Acute Resp Failure (sat < 92% w/o oxygen) Store Facility Technician > 2.0 INR > 1.5 Plt < 100 Bili > 2 Sepsis Management: Time of recognition of severe sepsis: At time of lactate Within 3 hours of recognition: Blood cultures x 2 before broad-spectrum antibiotics: yes 30 ml/kg NS bolus completed Initial lactate 2.1 Repeat lactate 2.3 Septic Shock Assessment: Any lactic acid > 4.0 no Persistent hypotension (SBP < 90 or 40 mmHg drop, MAP < 65) despite 30 mL/kg IV fluid bolusno Persistent Hypotension Treatment: Comfort care no Hypotension caused by: pt. baseline, med-induced, erroneous value, condition other than infection no Refusal by patient/decision maker for: blood draw, IVF, Antibiotics, Pressorsno Current data and ongoing care discussed. Time: Admitting Physician: Panel Grinding Machine Operator(s): Outstanding Data: none Critical Care Time: 30 minutes Treatments/Evaluations: Close monitoring and treatment of unstable vital signs, cardiorespiratory, and neurologic status, while maintaining tight balance of fluid, respiratory, and cardiac interventions. This includes the administration of emergency fluid management while maintaining close respiratory support as well as the provision of immediate and broad-spectrum antibiotic therapy, while performing a simultaneous assessment for possible sources in order to direct targeted therapy. This time includes discussing the case with the patient and the patient's family. This time also includes the consideration for invasive and chemical support to prevent cardiopulmonary collapse. This time does not include all procedures stated elsewhere in this record. This time also includes reviewing old records, labs and radiological studies. This time includes examining and re-examining the patient. Additionally, this time also includes arranging care with admitting and consulting physicians. Departure Diagnosis: Primary Impression: Sepsis Sepsis type: sepsis due to unspecified organism Qualified Codes: A41.9 - Sepsis, unspecified organism Additional Impression: Pneumonia Pneumonia type: due to unspecified organism Laterality: bilateral Lung location: lower lobe of lung Qualified Codes: J18.1 - Lobar pneumonia, unspecified organism Condition: BUSTER Lucas DO Nov 30, 2018 23:08
[2018-12-01] VITALS (11 sets, daily range): BP systolic 139–156; BP diastolic 78–90; PULSE 80–107; RESP 17–18; Ht 170.2 cm; Wt 74.5 kg
[2018-12-01] MEDS ORDERED: SOD CHLORIDE 0.9% 1,000 ML IV SCH ×2 (02:17→03:10)
[2018-12-01] MEDS ORDERED: ONDANSETRON 4 MG INJ IV PRN ×2 (02:30→03:30)
[2018-12-01] MEDS ORDERED: ACETAMINOPHEN 325 MG TAB PO PRN ×2 (02:30→03:30)
[2018-12-01] MEDS ORDERED: IPRATROPIUM (NEB) 0.5 MG/2.5 ML AMP NEB PRN (03:30)
[2018-12-01] MEDS ORDERED: HYDROCODONE/APAP (5/325) TAB PO PRN ×2 (03:30)
[2018-12-01] MEDS ORDERED: NACL 0.9% 3 ML SYG IV SCH (03:30)
[2018-12-01] MEDS: LEVOFLOXACIN 500MG/D5W (PMX) 100 ML IVPB SCH (06:18)
--- NOTE | 2018-12-01 07:26 | HP ---
Date/Time of Note Date/Time of Note DATE: 12/01/18 TIME: 07:21 Assessment/Plan VTE Prophylaxis Pharmacological prophylaxis: heparin Lines/Catheters IV Catheter Type (from Nrsg): Saline Lock Assessment/Plan Assessment/Plan 1. Shortness of breath, likely secondary to CHF exacerbation and pneumonia. Reactive airway disease is also a possibility, but denied history of asthma and only 5 years of smoking history -Admit to telemetry unit -Supplemental oxygen, bronchodilators, steroids, IV fluid -will give Lasix while closely monitoring kidney function -2D echo 2. Acute renal insufficiency -If no improvement in a.m. renal ultrasound and nephrology consult and send urine electrolytes 3. Type 1 diabetes with hyperglycemia: Adjust insulin as needed 4. Hypertensive urgency: Adjust antihypertensive as needed Result Diagram: 12/01/1851812/01/18518 Results 24hrs Laboratory Tests Test 11/30/18 22:00 11/30/18 22:43 12/01/18 01:05 12/01/18 03:14 White Blood Count 9.8 Red Blood Count 4.25 L Hemoglobin 13.1 #L Hematocrit 39.6 #L Mean Corpuscular Volume 93.2 Mean Corpuscular 30.8 Hemoglobin Mean Corpuscular 33.1 Hemoglobin Concent Red Cell Distribution 13.5 Width Platelet Count 218 # Mean Platelet Volume 10.6 H Immature Granulocytes % 0.200 Neutrophils % 51.5 Lymphocytes % 36.7 Monocytes % 7.0 Eosinophils % 3.9 Basophils % 0.7 Nucleated Red Blood 0.0 Cells % Immature Granulocytes # 0.020 Neutrophils # 5.0 Lymphocytes # 3.6 H Monocytes # 0.7 Eosinophils # 0.4 Basophils # 0.1 Nucleated Red Blood 0.0 Cells # Prothrombin Time 14.0 Prothrombin Time Ratio 1.1 INR International 1.07 Normalized Ratio Activated 28.0 Partial Thromboplast Time Sodium Level 142 Potassium Level 4.4 Chloride Level 102 Carbon Dioxide Level 28 Anion Gap 12 Blood Urea Nitrogen 33 H Creatinine 1.66 H Est Glomerular Filtrat Rate mL/min Glucose Level 284 H Calcium Level 8.9 Total Bilirubin 0.1 L Direct Bilirubin 0.00 Indirect Bilirubin 0.1 Aspartate Amino 30 Transf (AST/SGOT) Alanine 22 Aminotransferase (ALT/SG PT) Alkaline Phosphatase 113 Troponin I 0.022 B-Type Natriuretic 4200 H Peptide Total Protein 7.4 Albumin 4.2 Globulin 3.20 Albumin/Globulin Ratio 1.31 POC Venous Lactate 2.1 *H 2.3 *H Lactic Acid Level 3.1 *H Test 12/01/18 05:19 White Blood Count 8.5 Red Blood Count 4.06 L Hemoglobin 12.4 L Hematocrit 38.5 L Mean Corpuscular Volume 94.8 Mean Corpuscular 30.5 Hemoglobin Mean Corpuscular 32.2 Hemoglobin Concent Red Cell Distribution 13.5 Width Platelet Count 207 Mean Platelet Volume 11.0 H Immature Granulocytes % 0.200 Neutrophils % Lymphocytes % Monocytes % Eosinophils % Basophils % Nucleated Red Blood 0.0 Cells % Immature Granulocytes # 0.020 Neutrophils # Lymphocytes # Monocytes # Eosinophils # Basophils # Nucleated Red Blood Cells # Sodium Level 141 Potassium Level 4.3 Chloride Level 104 Carbon Dioxide Level 20 L Anion Gap 17 H Blood Urea Nitrogen 29 H Creatinine 1.45 H Est Glomerular Filtrat Rate mL/min Glucose Level 371 H Hemoglobin A1c 8.3 H Calcium Level 8.7 Total Bilirubin 0.1 L Direct Bilirubin 0.00 Indirect Bilirubin 0.1 Aspartate Amino 30 Transf (AST/SGOT) Alanine 13 Aminotransferase (ALT/SG PT) Alkaline Phosphatase 103 Total Protein 7.7 Albumin 4.1 Globulin 3.60 H Albumin/Globulin Ratio 1.13 HPI/ROS Admit Date/Time Admit Date/Time Dec 01, 2018 at 02:18 Hx of Present Illness This is a 73-year-old male with a history of type 1 diabetes, systolic dysfunction with a EF of 45-50%, hypertension who presented to ER complaining of cough and shortness of breath and wheezing. Symptoms been progressively getting worse for the past 2-3 days. Shortness of breath is worse on exertion. Denies chest pain or lower extremity swelling. Cough has been nonproductive. No history of asthma or COPD. He has a total of 5 years of smoking history. When he presented to ER, blood pressure was 218/134 with a heart rate of 117. Labs shows a creatinine of 1.66, BNP 4200, glucose about 280. Initial lactic acid 2.1. Chest x-ray shows newly developed increased interstitial opacification / edema throughout the lungs, moderate in degree. Interstitial pneumonia is within the differential. Patient was last admitted here in August 2017 for right shoulder pain. At that time he was found to have right shoulder effusion. He was also found to be bacteremic with MSSA. PMH/Family/Social Past Medical History PMH/Family/Social Past Medical History Medical History: other (see hpi) Coded Allergies: No Known Drug Allergy (Verified Allergy, Unknown, 07/15/16) Past Surgical History Past Surgical Hx: other (see hpi) Family History Significant Family History: no pertinent family hx Social History Alcohol Use: other Smoking Status: Unknown if ever smoked Drug Use: other Medications Current Medications Sodium Chloride 1,000 ml @ 80 mls/hr [id number] IV ; Start 12/01/18 at 02:17; Stop 12/01/18 at 14:46 Ondansetron HCl (Zofran Inj) 4 mg ER BRIDGE PRN IV NAUSEA AND/OR VOMITING; Start 12/01/18 at 02:30; Stop 12/02/18 at 02:29 Acetaminophen (Tylenol Tab) 650 mg ER BRIDGE PRN PO MILD PAIN(1-3)OR ELEVATED TEMP; Start 12/01/18 at 02:30; Stop 12/02/18 at 02:29 Sodium Chloride 1,000 ml @ 100 mls/hr Q10H IV Last administered on 12/01/18at 04:40; Admin Dose 100 MLS/HR; Start 12/01/18 at 03:10; Stop 12/01/18 at 23:00 IV Flush (NS 3 ml) 3 ml PER PROTOCOL IV ; Start 12/01/18 at 03:30 Ondansetron HCl (Zofran Inj) 4 mg Q6H PRN IV NAUSEA AND/OR VOMITING; Start 12/01/18 at 03:30 Acetaminophen (Tylenol Tab) 650 mg Q6H PRN PO PAIN LEVEL 1-3 OR FEVER; Start 12/01/18 at 03:30 Acetaminophen/ Hydrocodone Bitart ([place] (5/325)) 1 tab Q6H PRN PO MODERATE PAIN LEVEL 4-6; Start 12/01/18 at 03:30 Acetaminophen/ Hydrocodone Bitart ([place] (5/325)) 2 tab Q6H PRN PO SEVERE PAIN LEVEL 7-10; Start 12/01/18 at 03:30 Enoxaparin Sodium (Lovenox) 40 mg DAILY SC ; Start 12/01/18 at 09:00 Ipratropium [place] (Atrovent 0.02% (Neb)) 0.5 mg Q2H RESP THERAPY PRN NEB SHORTNESS OF BREATH; Start 12/01/18 at 03:30 Levalbuterol (Xopenex Neb) 0.63 mg Q2H RESP THERAPY PRN HHN sob, wheezing; Start 12/01/18 at 03:30 Levofloxacin/ Dextrose 100 ml @ 100 mls/hr DAILY@0600 IVPB Last administered on 12/01/18at 06:18; Admin Dose 100 MLS/HR; Start 12/01/18 at 06:00 Coded Allergies: No Known Allergy (Unverified , 11/30/18) Social History Smoking Status: Never smoker Exam/Review of Systems Vital Signs Vitals Vital Signs Date Temp Pulse Resp B/P (MAP) Pulse Ox O2 O2 Flow FiO2 Time Delivery Rate 12/01/18 2.0 05:59 12/01/18 Nasal 05:47 Cannula 12/01/18 99 05:30 12/01/18 98.7 18 139/90 99 05:15 (106) Intake and Output 11/30/18 11/30/18 12/01/18 1515:00 23:00 07:00 IntakeIntake Total 120 ml BalanceBalance 120 ml Exam Constitutional: alert, oriented, well developed Head: normocephalic, atraumatic Eyes: EOMI, PERRL Respiratory: wheezing Cardiovascular: other (Tachycardic regular rhythm) Gastrointestinal: soft, non-tender Extremities: normal pulses FAUSTO MURPHY MD Dec 01, 2018 07:26
[2018-12-01] MEDS: ENOXAPARIN 40 MG/0.4 ML SYG SC SCH (08:49)
[2018-12-01] MEDS ORDERED: FUROSEMIDE 20 MG INJ IV SCH (09:00)
[2018-12-01] MEDS ORDERED: METHYLPREDNISOLONE 125 MG INJ IV ONE (09:00)
[2018-12-01] MEDS: FUROSEMIDE 20 MG INJ IV SCH ×2 (12:05→17:12)
--- NOTE | 2018-12-01 13:01 | RADRPT ---
Echocardiogram Report Patient Name: BECKIE ACEVEDO Gender: Male Date: 1945 Study Date: 01-Dec-2018 Utility Operator Yarn: Mila Huston [facility] Location: [address] Ref. Physician: FAUSTO MURPHY Quality: Adequate Procedures: Transthoracic echocardiogram with complete 2D, M-Mode, and doppler examination. Indications: Congestive Heart Failure. 2D/M Mode Doppler Measurement Value Normal Ranges Measurement Value Normal Ranges LVIDd 2D 5.3 3.5 - 5.6 cm AV Peak Earl 1.1 m/sec LVIDs 2D 4.0 2.1 - 4.1 cm AV Peak PG 5.0 mmHg LVPWd 2D 1.0 0.6 - 1.1 cm AI Peak PG 34.0 mmHg IVSd 2D 1.0 0.6 - 1.1 cm AI Peak Earl 2.9 m/sec AoR Diam 2D 2.5 2.0 - 3.7 cm AI PHT 396.0 msec LA/Ao 2D 1 0 - 1 LVOT Peak Earl 0.7 m/sec LA Dimen 2D 3.4 2.3 - 4.0 cm LVOT Peak PG 2.0 mmHg MV E Peak Earl 0.8 m/sec MV A Peak Earl 0.4 m/sec MV E/A 1.8 MV Decel Time 148 msec Lat E` Earl 0.1 m/sec Lateral E/E` 10.6 MV E/A 1.8 Findings Left Ventricle: Normal left ventricular cavity size. Normal left ventricular wall thickness. Mild left ventricular systolic dysfunction. Ejection fraction is visually estimated at 45 %. Abnormal Diastolic Function. Right Ventricle: Normal right ventricular size. Normal right ventricular systolic function. Left Atrium: The left atrium is normal in size. Right Atrium: The right atrium is normal in size. Mitral Valve: Mitral valve leaflets appear mildly thickened. Mild mitral annular calcification. Mild mitral valve regurgitation. Aortic Valve: No hemodynamically significant aortic stenosis by doppler. Aortic cusps appear mildly calcified. Mild aortic valve regurgitation. Tricuspid Valve: Normal appearance and function of the tricuspid valve with trace physiologic regurgitation. Pulmonic Valve: Pulmonic valve not well visualized. Pericardium: Normal pericardium with no significant pericardial effusion. Aorta: Normal aortic root. IVC: Normal size and normal respiratory collapse consistent with normal right atrial pressure. Conclusions Normal left ventricular cavity size. Normal left ventricular wall thickness. Mild left ventricular systolic dysfunction. Ejection fraction is visually estimated at 45 %. Abnormal Diastolic Function. Normal right ventricular size. Normal right ventricular systolic function. The left atrium is normal in size. The right atrium is normal in size. Mitral valve leaflets appear mildly thickened. Mild mitral annular calcification. Mild mitral valve regurgitation. No hemodynamically significant aortic stenosis by doppler. Aortic cusps appear mildly calcified. Mild aortic valve regurgitation. Normal appearance and function of the tricuspid valve with trace physiologic regurgitation. Normal pericardium with no significant pericardial effusion. Electronically Signed By: Deandre Bravo 01-Dec-2018 13:00:43 -0800 Patient Name: BECKIE ACEVEDO Study Date: 01-Dec-2018 [id number]
--- NOTE | 2018-12-01 13:43 | PN ---
Date/Time of Note Date/Time of Note DATE: 12/01/18 TIME: 13:39 Assessment/Plan VTE Prophylaxis Risk score (from Ns)>0 risk: 3 SCD applied (from Ns): Yes Pharmacological prophylaxis: heparin Lines/Catheters [facility] Saline Lock Assessment/Plan Hospital Course 73 yo male with DMII, CKD who presented wtih respiratory distress. Found to be in acute diastolic CHF - Clearly in heart failure by exam and imaging. Dc fluids. Start lasix - Perhaps element of pneumonia. Can complete levaquin PO course x 5 days Discharge when euvolemic Result Diagram: 12/01/1851812/01/18518 Results 24hrs Laboratory Tests Test 11/30/18 22:00 11/30/18 22:43 12/01/18 01:05 12/01/18 03:14 White Blood Count 9.8 Red Blood Count 4.25 L Hemoglobin 13.1 #L Hematocrit 39.6 #L Mean Corpuscular Volume 93.2 Mean Corpuscular 30.8 Hemoglobin Mean Corpuscular 33.1 Hemoglobin Concent Red Cell Distribution 13.5 Width Platelet Count 218 # Mean Platelet Volume 10.6 H Immature Granulocytes % 0.200 Neutrophils % 51.5 Lymphocytes % 36.7 Monocytes % 7.0 Eosinophils % 3.9 Basophils % 0.7 Nucleated Red Blood 0.0 Cells % Immature Granulocytes # 0.020 Neutrophils # 5.0 Lymphocytes # 3.6 H Monocytes # 0.7 Eosinophils # 0.4 Basophils # 0.1 Nucleated Red Blood 0.0 Cells # Prothrombin Time 14.0 Prothrombin Time Ratio 1.1 INR International 1.07 Normalized Ratio Activated 28.0 Partial Thromboplast Time Sodium Level 142 Potassium Level 4.4 Chloride Level 102 Carbon Dioxide Level 28 Anion Gap 12 Blood Urea Nitrogen 33 H Creatinine 1.66 H Est Glomerular Filtrat Rate mL/min Glucose Level 284 H Calcium Level 8.9 Total Bilirubin 0.1 L Direct Bilirubin 0.00 Indirect Bilirubin 0.1 Aspartate Amino 30 Transf (AST/SGOT) Alanine 22 Aminotransferase (ALT/SG PT) Alkaline Phosphatase 113 Troponin I 0.022 B-Type Natriuretic 4200 H Peptide Total Protein 7.4 Albumin 4.2 Globulin 3.20 Albumin/Globulin Ratio 1.31 POC Venous Lactate 2.1 *H 2.3 *H Lactic Acid Level 3.1 *H Test 12/01/18 05:19 White Blood Count 8.5 Red Blood Count 4.06 L Hemoglobin 12.4 L Hematocrit 38.5 L Mean Corpuscular Volume 94.8 Mean Corpuscular 30.5 Hemoglobin Mean Corpuscular 32.2 Hemoglobin Concent Red Cell Distribution 13.5 Width Platelet Count 207 Mean Platelet Volume 11.0 H Immature Granulocytes % 0.200 Neutrophils % Lymphocytes % Monocytes % Eosinophils % Basophils % Nucleated Red Blood 0.0 Cells % Immature Granulocytes # 0.020 Neutrophils # Lymphocytes # Monocytes # Eosinophils # Basophils # Nucleated Red Blood Cells # Sodium Level 141 Potassium Level 4.3 Chloride Level 104 Carbon Dioxide Level 20 L Anion Gap 17 H Blood Urea Nitrogen 29 H Creatinine 1.45 H Est Glomerular Filtrat Rate mL/min Glucose Level 371 H Hemoglobin A1c 8.3 H Calcium Level 8.7 Total Bilirubin 0.1 L Direct Bilirubin 0.00 Indirect Bilirubin 0.1 Aspartate Amino 30 Transf (AST/SGOT) Alanine 13 Aminotransferase (ALT/SG PT) Alkaline Phosphatase 103 Total Protein 7.7 Albumin 4.1 Globulin 3.60 H Albumin/Globulin Ratio 1.13 Subjective 24 Hr Interval Summary Free Text/Dictation SOB improved with nebs Exam/Review of Systems Vital Signs Vitals Vital Signs Date Temp Pulse Resp B/P (MAP) Pulse Ox O2 O2 Flow FiO2 Time Delivery Rate 12/01/18 91 12:22 12/01/18 2.0 11:39 12/01/18 98.2 18 149/88 100 Nasal 11:15 (108) Cannula Intake and Output 11/30/18 11/30/18 12/01/18 1414:59 22:59 06:59 IntakeIntake Total 120 ml BalanceBalance 120 ml Exam ++ JVD ++ HJR Breathign comforgably No distress No peripheral edema clear lungs Medications Medications Current Medications IV Flush (NS 3 ml) 3 ml PER PROTOCOL IV ; Start 12/01/18 at 03:30 Ondansetron HCl (Zofran Inj) 4 mg Q6H PRN IV NAUSEA AND/OR VOMITING; Start 12/01/18 at 03:30 Acetaminophen (Tylenol Tab) 650 mg Q6H PRN PO PAIN LEVEL 1-3 OR FEVER; Start 12/01/18 at 03:30 Acetaminophen/ Hydrocodone Bitart ([place] (5/325)) 1 tab Q6H PRN PO MODERATE PAIN LEVEL 4-6; Start 12/01/18 at 03:30 Acetaminophen/ Hydrocodone Bitart ([place] (5/325)) 2 tab Q6H PRN PO SEVERE PAIN LEVEL 7-10; Start 12/01/18 at 03:30 Enoxaparin Sodium (Lovenox) 40 mg DAILY SC Last administered on 12/01/18at 08:49; Admin Dose 40 MG; Start 12/01/18 at 09:00 Ipratropium [place] (Atrovent 0.02% (Neb)) 0.5 mg Q2H RESP THERAPY PRN NEB SHORTNESS OF BREATH; Start 12/01/18 at 03:30 Levalbuterol (Xopenex Neb) 0.63 mg Q2H RESP THERAPY PRN HHN sob, wheezing; Start 12/01/18 at 03:30 Levofloxacin/ Dextrose 100 ml @ 100 mls/hr DAILY@0600 IVPB Last administered on 12/01/18at 06:18; Admin Dose 100 MLS/HR; Start 12/01/18 at 06:00 Influenza Virus Vaccine Quadrival (Fluzone) 0.5 ml ONCE ONCE IM* ; Start 12/02/18 at 10:00; Stop 12/02/18 at 10:01 Furosemide (Lasix) 20 mg BID DIURETICS IV Last administered on 12/01/18at 12:05; Admin Dose 20 MG; Start 12/01/18 at 12:00 ALFONSO MOBLEY MD Dec 01, 2018 13:43
[2018-12-01] MEDS ORDERED: DEXTROSE 50% 50 ML SYRINGE IV PRN ×2 (20:00)
[2018-12-01] MEDS ORDERED: GLUCAGON 1 MG INJ IM PRN (20:00)
[2018-12-01] MEDS ORDERED: GLUCOSE GEL 15 GRAM TUBE BUCCAL PRN (20:00)
[2018-12-01] MEDS ORDERED: GLUCOSE GEL 15 GRAM TUBE PO PRN ×2 (20:00)
[2018-12-01] MEDS: INSULIN ASPART [NOVOLOG] 3 ML PEN SC SCH (20:56)
[2018-12-01] MEDS ORDERED: INSULIN GLARGINE [LANTus] (100 UNITS/ML) SYG SC SCH (21:30)
[2018-12-02] VITALS (12 sets, daily range): BP systolic 113–144; BP diastolic 61–77; PULSE 75–102; RESP 16–18
[2018-12-02] MEDS: LEVOFLOXACIN 500MG/D5W (PMX) 100 ML IVPB SCH (05:32)
[2018-12-02] MEDS: FUROSEMIDE 20 MG INJ IV SCH (05:35)
[2018-12-02] MEDS: INSULIN ASPART [NOVOLOG] 3 ML PEN SC SCH ×6 (08:08→21:06)
[2018-12-02] MEDS: ENOXAPARIN 40 MG/0.4 ML SYG SC SCH (08:08)
[2018-12-02] MEDS ORDERED: LEVALBUTEROL (NEB) 1.25 MG/0.5 ML AMP HHN ONE (10:00)
[2018-12-02] MEDS ORDERED: DEXTROSE 50% 50 ML SYRINGE IV PRN ×2 (10:00)
[2018-12-02] MEDS ORDERED: GLUCAGON 1 MG INJ IM PRN (10:00)
[2018-12-02] MEDS ORDERED: FUROSEMIDE 20 MG INJ IV ONE (10:00)
[2018-12-02] MEDS ORDERED: GLUCOSE GEL 15 GRAM TUBE BUCCAL PRN (10:00)
[2018-12-02] MEDS ORDERED: GLUCOSE GEL 15 GRAM TUBE PO PRN ×2 (10:00)
--- NOTE | 2018-12-02 10:00 | PN ---
Date/Time of Note Date/Time of Note DATE: 12/02/18 TIME: 09:59 Assessment/Plan VTE Prophylaxis Risk score (from Ns)>0 risk: 5 SCD applied (from Ns): Yes Pharmacological prophylaxis: heparin Lines/Catheters IV [facility]from [facility] Saline Lock Assessment/Plan Hospital Course SUBJECTIVE: Lying in bed comfortably. No shortness of breath, fever, chills. Having mild wheezing. No edema. OBJECTIVE: Vital signs-see below PHYSICAL EXAM: Constitutional:Elderly male, lying in bed comfortably. Psych: nl mood/affect, no complaints Head: atraumatic, normocephalic Eyes: nl conjunctiva, nl sclera ENMT: mucosa pink and moist, nl external ears & nose Neck: non-tender, supple Respiratory:Wheezing + bilaterally. Cardiovascular:+JVD. nl pulses, regular rate and rhythm Gastrointestinal: non-tender, soft, bowel sounds active in all 4 quadrants. Musculoskeletal/extremities: nl extremities to inspection, motor strength equal bilaterally, no focal deficit. Normal pulses,no cyanosis, no edema. Neurological: Alert oriented 3,nl speech, nl strength Skin: nl turgor ASSESSMENT/PLAN:73-year-old male with type 2 diabetes, chronic kidney disease, presented with respiratory distress, found to have acute diastolic congestive heart failure. 1. Acute decompensated diastolic congestive heart failure. -Volume status improving. -Continue aggressive diuresis(increased to 40 iv bid), beta-blockers. -TTE noted with EF 45%. 2. Community-acquired pneumonia -We will add [id number] bronchodilators/ICH secondary to wheezing. We will also give him a low-dose oral steroids. -Continue Levaquin with stop date placed. 3. Type 2 diabetes -Poorly controlled -I will up titrate insulin regimen for better glycemic control as well as patient will receive steroids. -Carbohydrate controlled diet. 4. Acute kidney injury on CKD. -Acute kidney injury likely secondary to hemodynamics. With patient receiving Lasix will continue monitoring renal function closely. Currently creatinine with not much actuations. -DC Lovenox. DVT prophylaxis: Switch to heparin. PUD prophylaxis: Not indicated CODE STATUS: Full code Diet: Carbohydrate controlled Continue current medical management. Monitor volume status closely. Await for clinical improvement. [facility] Result Diagram: 12/02/18 0530 12/02/18 0530 Results 24hrs Laboratory Tests Test 12/01/18 19:16 12/01/18 20:41 12/02/18 02:10 12/02/18 04:46 Bedside Glucose 344 H 283 H 305 H 125 Test 12/02/18 05:30 12/02/18 08:01 White Blood Count 13.0 #H Red Blood Count 3.87 L Hemoglobin 11.7 L Hematocrit 35.2 L Mean Corpuscular Volume 91.0 Mean Corpuscular 30.2 Hemoglobin Mean Corpuscular 33.2 Hemoglobin Concent Red Cell Distribution 13.4 Width Platelet Count 192 Mean Platelet Volume 11.6 H Immature Granulocytes % 0.300 Neutrophils % 82.6 H Lymphocytes % 8.8 L Monocytes % 8.2 Eosinophils % 0.0 Basophils % 0.1 Nucleated Red Blood 0.0 Cells % Immature Granulocytes # 0.040 H Neutrophils # 10.7 H Lymphocytes # 1.2 Monocytes # 1.1 H Eosinophils # 0.0 Basophils # 0.0 Nucleated Red Blood 0.0 Cells # Sodium Level 140 Potassium Level 4.7 Chloride Level 107 Carbon Dioxide Level 26 Anion Gap 7 # Blood Urea Nitrogen 41 #H Creatinine 1.58 H Est Glomerular Filtrat Rate mL/min Glucose Level 155 # Calcium Level 8.9 Phosphorus Level 3.8 Magnesium Level 2.0 Bedside Glucose 195 Exam/Review of Systems Vital Signs Vitals Vital Signs Date Temp Pulse Resp B/P (MAP) Pulse Ox O2 O2 Flow FiO2 Time Delivery Rate 12/02/18 82 08:00 12/02/18 97.7 16 128/73 99 07:33 (91) 12/02/18 3.0 01:21 12/01/18 Nasal 20:00 Cannula Intake and Output 12/01/18 12/01/18 12/02/18 1515:00 23:00 07:00 IntakeIntake Total 800 ml 200 ml OutputOutput Total 1600 ml 600 ml BalanceBalance -800 ml -400 ml Medications Medications Current Medications IV Flush (NS 3 ml) 3 ml PER PROTOCOL IV ; Start 12/01/18 at 03:30 Ondansetron HCl (Zofran Inj) 4 mg Q6H PRN IV NAUSEA AND/OR VOMITING; Start 12/01/18 at 03:30 Acetaminophen (Tylenol Tab) 650 mg Q6H PRN PO PAIN LEVEL 1-3 OR FEVER; Start 12/01/18 at 03:30 Acetaminophen/ Hydrocodone Bitart ([place] (5/325)) 1 tab Q6H PRN PO MODERATE PAIN LEVEL 4-6; Start 12/01/18 at 03:30 Acetaminophen/ Hydrocodone Bitart ([place] (5/325)) 2 tab Q6H PRN PO SEVERE PAIN LEVEL 7-10; Start 12/01/18 at 03:30 Enoxaparin Sodium (Lovenox) 40 mg DAILY SC Last administered on 12/02/18at 08:08; Admin Dose 40 MG; Start 12/01/18 at 09:00 Ipratropium [place] (Atrovent 0.02% (Neb)) 0.5 mg Q2H RESP THERAPY PRN NEB SHORTNESS OF BREATH; Start 12/01/18 at 03:30 Levalbuterol (Xopenex Neb) 0.63 mg Q2H RESP THERAPY PRN HHN sob, wheezing; Start 12/01/18 at 03:30 Levofloxacin/ Dextrose 100 ml @ 100 mls/hr DAILY@0600 IVPB Last administered on 12/02/18at 05:32; Admin Dose 100 MLS/HR; Start 12/01/18 at 06:00 Influenza Virus Vaccine Quadrival (Fluzone) 0.5 ml ONCE ONCE IM* ; Start 12/02/18 at 10:00; Stop 12/02/18 at 10:01 Miscellaneous Information 1 ea NOTE XX ; Start 12/01/18 at 20:00 Glucose (Glutose) 15 gm Q15M PRN PO DECREASED GLUCOSE; Start 12/01/18 at 20:00 Glucose (Glutose) 22.5 gm Q15M PRN PO DECREASED GLUCOSE; Start 12/01/18 at 20:00 Dextrose (D50w Syringe) 25 ml Q15M PRN IV DECREASED GLUCOSE; Start 12/01/18 at 20:00 Dextrose (D50w Syringe) 50 ml Q15M PRN IV DECREASED GLUCOSE; Start 12/01/18 at 20:00 Glucagon (Glucagen) 1 mg Q15M PRN IM DECREASED GLUCOSE; Start 12/01/18 at 20:00 Glucose (Glutose) 15 gm Q15M PRN BUCCAL DECREASED GLUCOSE; Start 12/01/18 at 20:00 Insulin Glargine (Lantus) 12 units DAILY@2000 SC Last administered on 12/01/18at 22:28; Admin Dose 12 UNITS; Start 12/01/18 at 21:30 Levalbuterol (Xopenex Neb) 1.25 mg Q6H RESP THERAPY HHN ; Start 12/02/18 at 14:00; Status UNV Levalbuterol (Xopenex Neb) 1.25 mg ONCE ONCE HHN ; Start 12/02/18 at 10:00; Stop 12/02/18 at 10:01; Status UNV Budesonide (Pulmicort (Neb)) 0.5 mg BID RESP THERAPY HHN ; Start 12/02/18 at 20:00; Status UNV Prednisone (Prednisone) 30 mg DAILY PO ; Start 12/02/18 at 10:00; Stop 12/06/18 at 09:01; Status UNV Metoprolol Tartrate (Lopressor) 25 mg BID PO ; Start 12/02/18 at 10:00; Status UNV Furosemide (Lasix) 40 mg BID DIURETICS IV ; Start 12/02/18 at 18:00; Status UNV Furosemide (Lasix) 20 mg ONCE ONCE IV ; Start 12/02/18 at 10:00; Stop 12/02/18 at 10:01; Status UNV Miscellaneous Information (* Miscellaneous Pharmacy Order) Discontinue current oral sulfonylur... ONCE ONCE XX ; Start 12/02/18 at 10:00; Stop 12/02/18 at 10:01; Status UNV Diagnostic Test (Pha) (Accu-Chek) 1 XX ; Start 12/03/18 at 02:00; Status UNV Insulin Aspart (Novolog Insulin Pen) 7 unit WITH MEALS SC ; Start 12/02/18 at 12:00; Status UNV Miscellaneous Information (* Miscellaneous Pharmacy Order) HYPOGLYCEMIA PROTOCOL w... ONCE ONCE XX ; Start 12/02/18 at 10:00; Stop 12/02/18 at 10:01; Status UNV Insulin Aspart (Novolog Insulin Pen) NOVOLOG *MILD* ALGORITHM WITH MEALS BEDTIME SC ; Start 12/02/18 at 12:00; Status UNV Miscellaneous Information (* Miscellaneous Pharmacy Order) Discontinue all previ... ONCE ONCE XX ; Start 12/02/18 at 10:00; Stop 12/02/18 at 10:01; Status UNV Insulin Glargine (Lantus) 22 units DAILY@2000 SC ; Start 12/02/18 at 20:00; [facility] NIKV LAY HOLLOWAY NP Dec 02, 2018 10:00
[2018-12-02] MEDS: predniSONE 10 MG TAB PO SCH (10:35)
[2018-12-02] MEDS: METOPROLOL 25 MG TAB PO SCH ×2 (10:36→20:58)
[2018-12-02] MEDS: LEVALBUTEROL (NEB) 0.63 MG/3 ML AMP HHN PRN (11:24)
[2018-12-02] MEDS: LEVALBUTEROL (NEB) 1.25 MG/0.5 ML AMP HHN SCH ×2 (15:12→20:21)
[2018-12-02] MEDS: POLYETHYLENE GLYCOL 17 GM PACKET PO SCH (16:54)
[2018-12-02] MEDS: DOCUSATE SODIUM 100 MG CAP PO SCH ×2 (16:55→20:57)
[2018-12-02] MEDS: FUROSEMIDE 40 MG INJ IV SCH (17:22)
[2018-12-02] MEDS ORDERED: INSULIN GLARGINE [LANTus] (100 UNITS/ML) SYG SC SCH (20:00)
[2018-12-02] MEDS: BUDESONIDE (NEB) 0.5MG/2ML AMP HHN SCH (20:21)
[2018-12-02] MEDS: INSULIN GLARGINE [LANTus] (100 UNITS/ML) SYG SC SCH (21:02)
[2018-12-03] VITALS (13 sets, daily range): BP systolic 112–153; BP diastolic 56–77; PULSE 77–92; RESP 16–19
[2018-12-03] MEDS ORDERED: ALBUTEROL/IPRATROPIUM (NEB) 3 ML AMP HHN PRN (01:00)
[2018-12-03] MEDS ORDERED: FUROSEMIDE 40 MG INJ IV ONE (01:00)
[2018-12-03] MEDS: LEVALBUTEROL (NEB) 1.25 MG/0.5 ML AMP HHN SCH ×4 (01:53→20:37)
[2018-12-03] MEDS: ACCU-CHEK XX SCH (02:00)
[2018-12-03] MEDS: LEVOFLOXACIN 500MG/D5W (PMX) 100 ML IVPB SCH (05:17)
[2018-12-03] MEDS: FUROSEMIDE 40 MG INJ IV SCH (05:17)
[2018-12-03] MEDS: METOPROLOL 25 MG TAB PO SCH ×2 (07:40→21:10)
[2018-12-03] MEDS: predniSONE 10 MG TAB PO SCH (07:40)
[2018-12-03] MEDS: INSULIN ASPART [NOVOLOG] 3 ML PEN SC SCH ×7 (07:41→21:24)
[2018-12-03] MEDS: POLYETHYLENE GLYCOL 17 GM PACKET PO SCH (07:41)
[2018-12-03] MEDS: DOCUSATE SODIUM 100 MG CAP PO SCH ×2 (07:41→21:07)
[2018-12-03] MEDS: BUDESONIDE (NEB) 0.5MG/2ML AMP HHN SCH ×2 (08:30→20:37)
[2018-12-03] MEDS: HEPARIN 5,000 UNIT/1 ML VIAL SC SCH ×2 (10:13→21:12)
--- NOTE | 2018-12-03 12:04 | PN ---
Date/Time of Note Date/Time of Note DATE: 12/03/18 TIME: 11:56 Assessment/Plan VTE Prophylaxis Risk score (from Ns)>0 risk: 5 SCD applied (from Ns): Yes Pharmacological prophylaxis: heparin Lines/Catheters IV [facility] (from [facility] Sal[place] Assessment/Plan Hospital Course SUBJECTIVE: No acute episodes. OBJECTIVE: Vital signs-see below PHYSICAL EXAM: Constitutional:Elderly male, lying in bed comfortably. Psych: nl mood/affect, no complaints Head: atraumatic, normocephalic Eyes: nl conjunctiva, nl sclera ENMT: mucosa pink and moist, nl external ears & nose Neck: non-tender, supple Respiratory: Diminished bibasilar. Otherwise chest clear to auscultation. No wheezing. Cardiovascular:+JVD. nl pulses, regular rate and rhythm Gastrointestinal: non-tender, soft, bowel sounds active in all 4 quadrants. Musculoskeletal/extremities: nl extremities to inspection, motor strength equal bilaterally, no focal deficit. Normal pulses,no cyanosis, no edema. Neurological: Alert oriented 3,nl speech, nl strength Skin: nl turgor ASSESSMENT/PLAN:73-year-old male with type 2 diabetes, chronic kidney disease, presented with respiratory distress, found to have acute diastolic congestive heart failure. 1. Acute decompensated diastolic congestive heart failure. -Clinically improved. -De-escalate diuretics to 20 mg p.o. twice daily, continue beta-blockers. -TTE noted with EF 45%. 2. Community-acquired pneumonia -Stable. Continue bronchodilators/ICH/low-dose prednisone in light of wheezing=> improved -Will stop Levaquin secondary to deteriorating renal function and will keep patient on Zithromax x5 doses. 3. Type 2 diabetes -Only stable. Continue insulin regimen -Carbohydrate controlled diet. 4. Acute kidney injury on CKD. -Renal function got slightly worsened today, likely hemodynamics/diuretics/Levaquin. Today we will stop Levaquin and will change to doxycycline. Diuretics will be titrated down to 20 mg twice daily. -Nephrology consult. -Repeat BMP in a.m. DVT prophylaxis: heparin. PUD prophylaxis: Not indicated CODE STATUS: Full code Diet: Carbohydrate controlled Continue current medical management. Monitor volume status closely. Await for improvement in renal function. Patient was seen in collaboration with Result Diagram: 12/03/18 0529 12/03/18 0529 Results 24hrs Laboratory Tests Test 12/02/18 12:11 12/02/18 16:52 12/02/18 20:56 12/03/18 02:04 Bedside Glucose 131 189 208 189 Test 12/03/18 05:29 12/03/18 07:39 White Blood Count 12.2 H Red Blood Count 4.18 L Hemoglobin 12.6 L Hematocrit 37.8 L Mean Corpuscular Volume 90.4 Mean Corpuscular 30.1 Hemoglobin Mean Corpuscular 33.3 Hemoglobin Concent Red Cell Distribution 13.2 Width Platelet Count 197 Mean Platelet Volume 11.5 H Immature Granulocytes % 0.400 Neutrophils % 77.7 H Lymphocytes % 15.1 Monocytes % 6.8 Eosinophils % 0.0 Basophils % 0.0 Nucleated Red Blood 0.0 Cells % Immature Granulocytes # 0.050 H Neutrophils # 9.5 H Lymphocytes # 1.9 Monocytes # 0.8 Eosinophils # 0.0 Basophils # 0.0 Nucleated Red Blood 0.0 Cells # Sodium Level 139 Potassium Level 3.9 Chloride Level 95 #L Carbon Dioxide Level 30 Anion Gap 14 #H Blood Urea Nitrogen 62 H Creatinine 1.71 H Est Glomerular Filtrat Rate mL/min Glucose Level 164 Calcium Level 9.3 Magnesium Level 2.1 Bedside Glucose 137 Exam/Review of Systems Vital Signs Vitals Vital Signs Date Temp Pulse Resp B/P (MAP) Pulse Ox O2 O2 Flow FiO2 Time Delivery Rate 12/03/18 97.4 78 16 120/56 95 11:27 (77) 12/03/18 Nasal 2.0 08:45 Cannula Intake and Output 12/02/18 12/02/18 12/03/18 1515:00 23:00 07:00 IntakeIntake Total 900 ml 120 ml OutputOutput Total 1100 ml 400 ml BalanceBalance -200 ml -280 ml Medications Medications Current Medications IV Flush (NS 3 ml) 3 ml PER PROTOCOL IV ; Start 12/01/18 at 03:30 Ondansetron HCl (Zofran Inj) 4 mg Q6H PRN IV NAUSEA AND/OR VOMITING; Start 12/01/18 at 03:30 Acetaminophen (Tylenol Tab) 650 mg Q6H PRN PO PAIN LEVEL 1-3 OR FEVER; Start 12/01/18 at 03:30 Acetaminophen/ Hydrocodone Bitart ([place] (5/325)) 1 tab Q6H PRN PO MODERATE PAIN LEVEL 4-6; Start 12/01/18 at 03:30 Acetaminophen/ Hydrocodone Bitart ([place] (5/325)) 2 tab Q6H PRN PO SEVERE PAIN LEVEL 7-10; Start 12/01/18 at 03:30 Ipratropium [place] (Atrovent 0.02% (Neb)) 0.5 mg Q2H RESP THERAPY PRN NEB SHORTNESS OF BREATH Last administered on 12/02/18 11:25; Admin Dose 0.5 MG; Start 12/01/18 at 03:30 Levalbuterol (Xopenex Neb) 0.63 mg Q2H RESP THERAPY PRN HHN sob, wheezing Last administered on 12/02/18 11:24; Admin Dose 0.63 MG; Start 12/01/18 at 03:30 Levofloxacin/ Dextrose 100 ml @ 100 mls/hr DAILY@0600 IVPB Last administered on 12/03/18 05:17; Admin Dose 100 MLS/HR; Start 12/01/18 at 06:00 Miscellaneous Information 1 ea NOTE XX ; Start 12/01/18 at 20:00 Levalbuterol (Xopenex Neb) 1.25 mg Q6H RESP THERAPY HHN Last administered on 12/03/18 08:30; Admin Dose 1.25 MG; Start 12/02/18 at 14:00 Budesonide (Pulmicort (Neb)) 0.5 mg BID RESP THERAPY HHN Last administered on 12/03/18 08:30; Admin Dose 0.5 MG; Start 12/02/18 at 20:00 Prednisone (Prednisone) 30 mg DAILY PO Last administered on 12/03/18 07:40; Admin Dose 30 MG; Start 12/02/18 at 10:00; Stop 12/06/18 at 09:01 Metoprolol Tartrate (Lopressor) 25 mg BID PO Last administered on 12/03/18 07:40; Admin Dose 25 MG; Start 12/02/18 at 10:00 Furosemide (Lasix) 40 mg BID DIURETICS IV Last administered on 12/03/18 05:17; Admin Dose 40 MG; Start 12/02/18 at 18:00 Diagnostic Test (Pha) (Accu-Chek) 1 ea 02 XX ; Start 12/03/18 at 02:00 Insulin Aspart (Novolog Insulin Pen) 7 unit WITH MEALS SC Last administered on 12/03/18at 07:49; Admin Dose 7 UNIT; Start 12/02/18 at 12:00 Insulin Aspart (Novolog Insulin Pen) NOVOLOG *MILD* ALGORITHM WITH MEALS BEDTIME SC Last administered on 12/02/18at 21:06; Admin Dose 1 UNIT; Start 12/02/18 at 12:00 Miscellaneous Information 1 ea NOTE XX ; Start 12/02/18 at 10:00 Glucose (Glutose) 15 gm Q15M PRN PO DECREASED GLUCOSE; Start 12/02/18 at 10:00 Glucose (Glutose) 22.5 gm Q15M PRN PO DECREASED GLUCOSE; Start 12/02/18 at 10:00 Dextrose (D50w Syringe) 25 ml Q15M PRN IV DECREASED GLUCOSE; Start 12/02/18 at 10:00 Dextrose (D50w Syringe) 50 ml Q15M PRN IV DECREASED GLUCOSE; Start 12/02/18 at 10:00 Glucagon (Glucagen) 1 mg Q15M PRN IM DECREASED GLUCOSE; Start 12/02/18 at 10:00 Glucose (Glutose) 15 gm Q15M PRN BUCCAL DECREASED GLUCOSE; Start 12/02/18 at 10:00 Heparin Sodium (Porcine) (Heparin (5000 Units/1ml)) 5,000 unit BID SC Last administered on 12/03/18at 10:13; Admin Dose 5,000 UNIT; Start 12/03/18 at 09:00 Docusate Sodium (Colace) 200 mg BID PO Last administered on 12/03/18at 07:41; Admin Dose 200 MG; Start 12/02/18 at 14:00 Polyethylene Glycol (Miralax) 17 gm DAILY PO Last administered on 12/03/18at 07:41; Admin Dose 17 GM; Start 12/02/18 at 14:00 Insulin Glargine (Lantus) 22 units DAILY@2000 SC Last administered on 12/02/18at 21:02; Admin Dose 22 UNITS; Start 12/02/18 at 20:00 LAY HOLLOWAY NP Dec 03, 2018 12:04
--- NOTE | 2018-12-03 15:52 | CONS ---
Date/Time of Note Date/Time of Note DATE: 12/03/18 TIME: 15:51 Assessment/Plan Assessment/Plan Assessment/Plan 1. acute kidney injury due to hemodynamics from CHF 2. acute decompensated diastolic CHF 3. Community acquired PNA 4. H/o HTN 5. H/o HL 6. H/o COPD Plan: pt seen on tele floor pt received IV lasix yesterday, agree with switching to lasix 20mg PO BID Renal US to assess for CKD, to rule out hydronephrosis IV abx for PNA, renally dose all abx and monitor electrolytes will follow up, Thanks for consultation Result Diagram: 12/03/18 0529 12/03/18 0529 Results 24hrs Laboratory Tests Test 12/02/18 16:52 12/02/18 20:56 12/03/18 02:04 12/03/18 05:29 Bedside Glucose 189 208 189 White Blood Count 12.2 H Red Blood Count 4.18 L Hemoglobin 12.6 L Hematocrit 37.8 L Mean Corpuscular Volume 90.4 Mean Corpuscular 30.1 Hemoglobin Mean Corpuscular 33.3 Hemoglobin Concent Red Cell Distribution 13.2 Width Platelet Count 197 Mean Platelet Volume 11.5 H Immature Granulocytes % 0.400 Neutrophils % 77.7 H Lymphocytes % 15.1 Monocytes % 6.8 Eosinophils % 0.0 Basophils % 0.0 Nucleated Red Blood 0.0 Cells % Immature Granulocytes # 0.050 H Neutrophils # 9.5 H Lymphocytes # 1.9 Monocytes # 0.8 Eosinophils # 0.0 Basophils # 0.0 Nucleated Red Blood 0.0 Cells # Sodium Level 139 Potassium Level 3.9 Chloride Level 95 #L Carbon Dioxide Level 30 Anion Gap 14 #H Blood Urea Nitrogen 62 H Creatinine 1.71 H Est Glomerular Filtrat Rate mL/min Glucose Level 164 Calcium Level 9.3 Magnesium Level 2.1 Test 12/03/18 07:39 12/03/18 12:06 Bedside Glucose 137 157 Consultation Date/Type/Reason Admit Date/Time Dec 01, 2018 at 02:18 Date of Consultation: Dec 03, 2018 Type of Consult NEPHROLOGY Reason for Consultation Acute kidney injury Requesting Provider: ALCON BOLAÑOS Hx of Present Illness 73-year-old male with a history of type 1 diabetes, systolic dysfunction with a EF of 45-50%, hypertension who presented to ER complaining of cough and shortness of breath and wheezing. When he presented to ER, blood pressure was 218/134 with a heart rate of 117. Labs shows a creatinine of 1.66, BNP 4200, glucose about 280. Initial lactic acid 2.1. Chest x-ray shows newly developed increased interstitial opacification / edema throughout the lungs, moderate in degree. Interstitial pneumonia is within the differential. Patient was last admitted here in August 2017 for right shoulder pain. Renal has been consulted for Acute vs acute on chronic renal failure..pt has been started on PO abx for PNA, also IV lasix 40mg BID for diuresis, Overnight BUN/Cr went upto 62/1.71- Constitutional: no complaints Eyes: no complaints ENT: no complaints Respiratory: cough, pleuritic pain, shortness of breath Cardiovascular: no complaints Gastrointestinal: no complaints Genitourinary: no complaints Musculoskeletal: no complaints Skin: no complaints Neurologic: no complaints Endocrine: no complaints Lymphatic: no complaints Psychological: no complaints Immunologic: no complaints Past Medical History Medical History: congestive heart failure, high cholesterol, hypertension, other (COPD) Medications Current Medications IV Flush (NS 3 ml) 3 ml PER PROTOCOL IV ; Start 12/01/18 at 03:30 Ondansetron HCl (Zofran Inj) 4 mg Q6H PRN IV NAUSEA AND/OR VOMITING; Start 12/01/18 at 03:30 Acetaminophen (Tylenol Tab) 650 mg Q6H PRN PO PAIN LEVEL 1-3 OR FEVER; Start 12/01/18 at 03:30 Acetaminophen/ Hydrocodone Bitart ([place] (5/325)) 1 tab Q6H PRN PO MODERATE PAIN LEVEL 4-6; Start 12/01/18 at 03:30 Acetaminophen/ Hydrocodone Bitart ([place] (5/325)) 2 tab Q6H PRN PO SEVERE PAIN LEVEL 7-10; Start 12/01/18 at 03:30 Ipratropium [place] (Atrovent 0.02% (Neb)) 0.5 mg Q2H RESP THERAPY PRN NEB S HORTNESS OF BREATH Last administered on 12/02/18at 11:25; Admin Dose 0.5 MG; Start 12/01/18 at 03:30 Levalbuterol (Xopenex Neb) 0.63 mg Q2H RESP THERAPY PRN HHN sob, wheezing Last administered on 12/02/18at 11:24; Admin Dose 0.63 MG; Start 12/01/18 at 03:30 Miscellaneous Information 1 ea NOTE XX ; Start 12/01/18 at 20:00 Levalbuterol (Xopenex Neb) 1.25 mg Q6H RESP THERAPY HHN Last administered on 12/03/18at 15:08; Admin Dose 1.25 MG; Start 12/02/18 at 14:00 Budesonide (Pulmicort (Neb)) 0.5 mg BID RESP THERAPY HHN Last administered on 12/03/18at 08:30; Admin Dose 0.5 MG; Start 12/02/18 at 20:00 Metoprolol Tartrate (Lopressor) 25 mg BID PO Last administered on 12/03/18at 07:40; Admin Dose 25 MG; Start 12/02/18 at 10:00 Diagnostic Test (Pha) (Accu-Chek) 1 ea 02 XX ; Start 12/03/18 at 02:00 Insulin Aspart (Novolog Insulin Pen) 7 unit WITH MEALS SC Last administered on 12/03/18at 12:12; Admin Dose 7 UNIT; Start 12/02/18 at 12:00 Insulin Aspart (Novolog Insulin Pen) NOVOLOG *MILD* ALGORITHM WITH MEALS BEDTIME SC Last administered on 12/03/18at 12:12; Admin Dose 1 UNIT; Start 12/02/18 at 12:00 Miscellaneous Information 1 ea NOTE XX ; Start 12/02/18 at 10:00 Glucose (Glutose) 15 gm Q15M PRN PO DECREASED GLUCOSE; Start 12/02/18 at 10:00 Glucose (Glutose) 22.5 gm Q15M PRN PO DECREASED GLUCOSE; Start 12/02/18 at 10:00 Dextrose (D50w Syringe) 25 ml Q15M PRN IV DECREASED GLUCOSE; Start 12/02/18 at 10:00 Dextrose (D50w Syringe) 50 ml Q15M PRN IV DECREASED GLUCOSE; Start 12/02/18 at 10:00 Glucagon (Glucagen) 1 mg Q15M PRN IM DECREASED GLUCOSE; Start 12/02/18 at 10:00 Glucose (Glutose) 15 gm Q15M PRN BUCCAL DECREASED GLUCOSE; Start 12/02/18 at 10:00 Heparin Sodium (Porcine) (Heparin (5000 Units/1ml)) 5,000 unit BID SC Last administered on 12/03/18at 10:13; Admin Dose 5,000 UNIT; Start 12/03/18 at 09:00 Docusate Sodium (Colace) 200 mg BID PO Last administered on 12/03/18at 07:41; Admin Dose 200 MG; Start 12/02/18 at 14:00 Polyethylene Glycol (Miralax) 17 gm DAILY PO Last administered on 12/03/18at 07 :41; Admin Dose 17 GM; Start 12/02/18 at 14:00 Insulin Glargine (Lantus) 22 units DAILY@2000 SC Last administered on 12/02/18at 21:02; Admin Dose 22 UNITS; Start 12/02/18 at 20:00 Furosemide (Lasix) 20 mg BID DIURETICS PO ; Start 12/03/18 at 18:00 Prednisone (Prednisone) 20 mg DAILY PO ; Start 12/04/18 at 09:00; Stop 12/06/18 at 08:59 Doxycycline Hyclate (Vibramycin) 100 mg BID PO ; Start 12/03/18 at 21:00; Stop 12/10/18 at 20:59 Allergies: Coded Allergies: No Known Allergy (Unverified , 11/30/18) Past Surgical History Past Surgical Hx: no surgical history Family History Significant Family History: no pertinent family hx Social History Alcohol Use: none Smoking Status: Never smoker Drug Use: none Exam/Review of Systems Vital Signs Vitals Vital Signs Date Temp Pulse Resp B/P (MAP) Pulse Ox O2 O2 Flow FiO2 Time Delivery Rate 12/03/18 97.9 83 16 127/70 95 15:24 (89) 12/03/18 Nasal 2.0 08:45 Cannula Intake and Output 12/02/18 12/02/18 12/03/18 1515:00 23:00 07:00 IntakeIntake Total 900 ml 120 ml OutputOutput Total 1100 ml 400 ml BalanceBalance -200 ml -280 ml Exam Constitutional: alert Psych: no complaints Head: normocephalic Eyes: nl conjunctiva ENMT: nl external ears & nose Neck: supple, non-tender, jvd Respiratory: crackles/rales, diminished breath sounds Cardiovascular: regular rate and rhythm, nl pulses Gastrointestinal: soft, non-tender Musculoskeletal: nl extremities to inspection, swelling Neurological: STONE GLUER II-XII intact, nl mental status, nl speech, nl strength Medications Medications Current Medications IV Flush (NS 3 ml) 3 ml PER PROTOCOL IV ; Start 12/01/18 at 03:30 Ondansetron HCl (Zofran Inj) 4 mg Q6H PRN IV NAUSEA AND/OR VOMITING; Start 12/01/18 at 03:30 Acetaminophen (Tylenol Tab) 650 mg Q6H PRN PO PAIN LEVEL 1-3 OR FEVER; Start 12/01/18 at 03:30 Acetaminophen/ Hydrocodone Bitart (Means (5/325)) 1 tab Q6H PRN PO MODERATE PAIN LEVEL 4-6; Start 12/01/18 at 03:30 Acetaminophen/ Hydrocodone Bitart ([place] (5/325)) 2 tab Q6H PRN PO SEVERE PAIN LEVEL 7-10; Start 12/01/18 at 03:30 Ipratropium [place] (Atrovent 0.02% (Neb)) 0.5 mg Q2H RESP THERAPY PRN NEB SHORTNESS OF BREATH Last administered on 12/02/18at 11:25; Admin Dose 0.5 MG; Start 12/01/18 at 03:30 Levalbuterol (Xopenex Neb) 0.63 mg Q2H RESP THERAPY PRN HHN sob, wheezing Last administered on 12/02/18at 11:24; Admin Dose 0.63 MG; Start 12/01/18 at 03:30 Miscellaneous Information 1 ea NOTE XX ; Start 12/01/18 at 20:00 Levalbuterol (Xopenex Neb) 1.25 mg Q6H RESP THERAPY HHN Last administered on 12/03/18at 15:08; Admin Dose 1.25 MG; Start 12/02/18 at 14:00 Budesonide (Pulmicort (Neb)) 0.5 mg BID RESP THERAPY HHN Last administered on 12/03/18at 08:30; Admin Dose 0.5 MG; Start 12/02/18 at 20:00 Metoprolol Tartrate (Lopressor) 25 mg BID PO Last administered on 12/03/18at 07:40; Admin Dose 25 MG; Start 12/02/18 at 10:00 Diagnostic Test (Pha) (Accu-Chek) 1 ea 02 XX ; Start 12/03/18 at 02:00 Insulin Aspart (Novolog Insulin Pen) 7 unit WITH MEALS SC Last administered on 12/03/18at 12:12; Admin Dose 7 UNIT; Start 12/02/18 at 12:00 Insulin Aspart (Novolog Insulin Pen) NOVOLOG *MILD* ALGORITHM WITH MEALS BEDTIME SC Last administered on 12/03/18at 12:12; Admin Dose 1 UNIT; Start 12/02/18 at 12:00 Miscellaneous Information 1 ea NOTE XX ; Start 12/02/18 at 10:00 Glucose (Glutose) 15 gm Q15M PRN PO DECREASED GLUCOSE; Start 12/02/18 at 10:00 Glucose (Glutose) 22.5 gm Q15M PRN PO DECREASED GLUCOSE; Start 12/02/18 at 10:00 Dextrose (D50w Syringe) 25 ml Q15M PRN IV DECREASED GLUCOSE; Start 12/02/18 at 10:00 Dextrose (D50w Syringe) 50 ml Q15M PRN IV DECREASED GLUCOSE; Start 12/02/18 at 10:00 Glucagon (Glucagen) 1 mg Q15M PRN IM DECREASED GLUCOSE; Start 12/02/18 at 10:00 Glucose (Glutose) 15 gm Q15M PRN BUCCAL DECREASED GLUCOSE; Start 12/02/18 at 10:00 Heparin Sodium (Porcine) (Heparin (5000 Units/1ml)) 5,000 unit BID SC Last administered on 12/03/18at 10:13; Admin Dose 5,000 UNIT; Start 12/03/18 at 09:00 Docusate Sodium (Colace) 200 mg BID PO Last administered on 12/03/18at 07:41; Admin Dose 200 MG; Start 12/02/18 at 14:00 Polyethylene Glycol (Miralax) 17 gm DAILY PO Last administered on 12/03/18at 07:41; Admin Dose 17 GM; Start 12/02/18 at 14:00 Insulin Glargine (Lantus) 22 units DAILY@2000 SC Last administered on 12/02/18at 21:02; Admin Dose 22 UNITS; Start 12/02/18 at 20:00 Furosemide (Lasix) 20 mg BID DIURETICS PO ; Start 12/03/18 at 18:00 Prednisone (Prednisone) 20 mg DAILY PO ; Start 12/04/18 at 09:00; Stop 12/06/18 at 08:59 Doxycycline Hyclate (Vibramycin) 100 mg BID PO ; Start 12/03/18 at 21:00; Stop 12/10/18 at 20:59 LANCE SHAIKH MD Dec 03, 2018 15:52
[2018-12-03] MEDS: FUROSEMIDE 20 MG TAB PO SCH (17:10)
[2018-12-03] MEDS: DOXYCYCLINE 100 MG TAB PO SCH (21:08)
[2018-12-03] MEDS: INSULIN GLARGINE [LANTus] (100 UNITS/ML) SYG SC SCH (21:19)
[2018-12-04] VITALS (11 sets, daily range): BP systolic 116–149; BP diastolic 66–75; PULSE 72–87; RESP 16–18
[2018-12-04] MEDS: LEVALBUTEROL (NEB) 1.25 MG/0.5 ML AMP HHN SCH (01:16)
[2018-12-04] MEDS: ACCU-CHEK XX SCH (02:11)
[2018-12-04] MEDS: FUROSEMIDE 20 MG TAB PO SCH (06:23)
[2018-12-04] MEDS: INSULIN ASPART [NOVOLOG] 3 ML PEN SC SCH ×7 (07:26→20:20)
[2018-12-04] MEDS: DOCUSATE SODIUM 100 MG CAP PO SCH ×2 (08:52→20:06)
[2018-12-04] MEDS: DOXYCYCLINE 100 MG TAB PO SCH ×2 (08:53→20:06)
[2018-12-04] MEDS: POLYETHYLENE GLYCOL 17 GM PACKET PO SCH (08:53)
[2018-12-04] MEDS: METOPROLOL 25 MG TAB PO SCH ×2 (08:53→20:11)
[2018-12-04] MEDS ORDERED: AZITHROMYCIN 250 MG TAB PO SCH (09:00)
[2018-12-04] MEDS: HEPARIN 5,000 UNIT/1 ML VIAL SC SCH ×2 (09:00→20:33)
[2018-12-04] MEDS: predniSONE 20 MG TAB PO SCH (09:02)
[2018-12-04] MEDS: LEVALBUTEROL (NEB) 0.63 MG/3 ML AMP HHN PRN (09:29)
--- NOTE | 2018-12-04 10:00 | PN ---
Date/Time of Note Date/Time of Note DATE: 12/04/18 TIME: 09:58 Assessment/Plan VTE Prophylaxis Risk score (from Ns)>0 risk: 5 SCD applied (from Ns): Yes Pharmacological prophylaxis: heparin Lines/Catheters IV [facility]from [facility] Peripheral IV Urinary Cath still in place: No Assessment/Plan Hospital Course SUBJECTIVE: No acute episodes. OBJECTIVE: Vital signs-see below PHYSICAL EXAM: Constitutional:Elderly male, lying in bed comfortably. Psych: nl mood/affect, no complaints Head: atraumatic, normocephalic Eyes: nl conjunctiva, nl sclera ENMT: mucosa pink and moist, nl external ears & nose Neck: non-tender, supple Respiratory: Diminished bibasilar. Otherwise chest clear to auscultation. No wheezing. Cardiovascular:+JVD. nl pulses, regular rate and rhythm Gastrointestinal: non-tender, soft, bowel sounds active in all 4 quadrants. Musculoskeletal/extremities: nl extremities to inspection, motor strength equal bilaterally, no focal deficit. Normal pulses,no cyanosis, no edema. Neurological: Alert oriented 3,nl speech, nl strength Skin: nl turgor ASSESSMENT/PLAN:73-year-old male with type 2 diabetes, chronic kidney disease, presented with respiratory distress, found to have acute diastolic congestive heart failure. 1. Acute decompensated diastolic congestive heart failure. -Clinically improved. -Continue Lasix 20 mg p.o. twice daily with the plan to change to 20 mg daily in a.m., continue beta-blockers. -TTE noted with EF 45%. 2. Community-acquired pneumonia -Symptoms resolved. Continue doxycycline with stop date placed. 3. Type 2 diabetes -Stable. Continue insulin. -Carbohydrate controlled diet. 4. Acute kidney injury on CKD. -Renal function got slightly worsened secondary to patient received high-dose diuretics and possibly Levaquin too -Nephrology following. Will repeat renal function in a.m., if not much fluctuation, likely patient can be discharged with outpatient follow-up. DVT prophylaxis: heparin. PUD prophylaxis: Not indicated CODE STATUS: Full code Diet: Carbohydrate controlled Continue current medical management. Monitor volume status closely. Await for improvement in renal function. Patient was seen in collaboration with Result Diagram: 12/04/18 0532 12/04/18 0532 Results 24hrs Laboratory Tests Test 12/03/18 12:06 12/03/18 17:05 12/03/18 20:27 12/04/18 02:08 Bedside Glucose 157 269 H 220 114 Test 12/04/18 05:32 12/04/18 07:18 White Blood Count 11.1 H Red Blood Count 4.53 L Hemoglobin 13.8 L Hematocrit 40.8 L Mean Corpuscular Volume 90.1 Mean Corpuscular 30.5 Hemoglobin Mean Corpuscular 33.8 Hemoglobin Concent Red Cell Distribution 13.4 Width Platelet Count 202 Mean Platelet Volume 11.5 H Immature Granulocytes % 0.500 H Neutrophils % 66.0 Lymphocytes % 24.9 Monocytes % 8.1 Eosinophils % 0.4 Basophils % 0.1 Nucleated Red Blood 0.0 Cells % Immature Granulocytes # 0.050 H Neutrophils # 7.3 Lymphocytes # 2.8 Monocytes # 0.9 Eosinophils # 0.0 Basophils # 0.0 Nucleated Red Blood 0.0 Cells # Sodium Level 138 Potassium Level 4.2 Chloride Level 97 Carbon Dioxide Level 30 Anion Gap 11 Blood Urea Nitrogen 70 H Creatinine 1.75 H Est Glomerular Filtrat Rate mL/min Glucose Level 120 # Calcium Level 9.1 Bedside Glucose 119 Exam/Review of Systems Vital Signs Vitals Vital Signs Date Temp Pulse Resp B/P (MAP) Pulse Ox O2 O2 Flow FiO2 Time Delivery Rate 12/04/18 75 09:10 12/04/18 Nasal 3.0 07:45 Cannula 12/04/18 97.6 16 124/69 98 07:39 (87) 12/04/18 21 01:16 Intake and Output 12/03/18 12/03/18 12/04/18 1515:00 23:00 07:00 IntakeIntake Total 950 ml 250 ml OutputOutput Total 1250 ml 700 ml BalanceBalance -300 ml -450 ml Medications Medications Current Medications IV Flush (NS 3 ml) 3 ml PER PROTOCOL IV ; Start 12/01/18 at 03:30 Ondansetron HCl (Zofran Inj) 4 mg Q6H PRN IV NAUSEA AND/OR VOMITING; Start 12/01/18 at 03:30 Acetaminophen (Tylenol Tab) 650 mg Q6H PRN PO PAIN LEVEL 1-3 OR FEVER; Start 12/01/18 at 03:30 Acetaminophen/ Hydrocodone Bitart ([place] (5/325)) 1 tab Q6H PRN PO MODERATE PAIN LEVEL 4-6; Start 12/01/18 at 03:30 Acetaminophen/ Hydrocodone Bitart ([place] (5/325)) 2 tab Q6H PRN PO SEVERE PAIN LEVEL 7-10; Start 12/01/18 at 03:30 Ipratropium [place] (Atrovent 0.02% (Neb)) 0.5 mg Q2H RESP THERAPY PRN NEB SHORTNESS OF BREATH Last administered on 12/02/18 11:25; Admin Dose 0.5 MG; Start 12/01/18 at 03:30 Levalbuterol (Xopenex Neb) 0.63 mg Q2H RESP THERAPY PRN HHN sob, wheezing Last administered on 12/02/18 11:24; Admin Dose 0.63 MG; Start 12/01/18 at 03:30 Miscellaneous Information 1 ea NOTE XX ; Start 12/01/18 at 20:00 Levalbuterol (Xopenex Neb) 1.25 mg Q6H RESP THERAPY HHN Last administered on 12/04/18at 01:16; Admin Dose 1.25 MG; Start 12/02/18 at 14:00 Budesonide (Pulmicort (Neb)) 0.5 mg BID RESP THERAPY HHN Last administered on 12/03/18 20:37; Admin Dose 0.5 MG; Start 12/02/18 at 20:00 Metoprolol Tartrate (Lopressor) 25 mg BID PO Last administered on 12/04/18 08:53; Admin Dose 25 MG; Start 12/02/18 at 10:00 Diagnostic Test (Pha) (Accu-Chek) 1 ea 02 XX Last administered on 12/04/18at 02:11; Admin Dose 1 EA; Start 12/03/18 at 02:00 Insulin Aspart (Novolog Insulin Pen) 7 unit WITH MEALS SC Last administered on 12/04/18 07:49; Admin Dose 7 UNIT; Start 12/02/18 at 12:00 Insulin Aspart (Novolog Insulin Pen) NOVOLOG *MILD* ALGORITHM WITH MEALS BEDTIME SC Last administered on 12/03/18 21:24; Admin Dose 1 UNIT; Start 12/02/18 at 12:00 Miscellaneous Information 1 ea NOTE XX ; Start 12/02/18 at 10:00 Glucose (Glutose) 15 gm Q15M PRN PO DECREASED GLUCOSE; Start 12/02/18 at 10:00 Glucose (Glutose) 22.5 gm Q15M PRN PO DECREASED GLUCOSE; Start 12/02/18 at 10:00 Dextrose (D50w Syringe) 25 ml Q15M PRN IV DECREASED GLUCOSE; Start 12/02/18 at 10:00 Dextrose (D50w Syringe) 50 ml Q15M PRN IV DECREASED GLUCOSE; Start 12/02/18 at 10:00 Glucagon (Glucagen) 1 mg Q15M PRN IM DECREASED GLUCOSE; Start 12/02/18 at 10:00 Glucose (Glutose) 15 gm Q15M PRN BUCCAL DECREASED GLUCOSE; Start 12/02/18 at 10:00 Heparin Sodium (Porcine) (Heparin (5000 Units/1ml)) 5,000 unit BID SC Last adm inistered on 12/04/18 09:00; Admin Dose 5,000 UNIT; Start 12/03/18 at 09:00 Docusate Sodium (Colace) 200 mg BID PO Last administered on 12/04/18at 08:52; Admin Dose 200 MG; Start 12/02/18 at 14:00 Polyethylene Glycol (Miralax) 17 gm DAILY PO Last administered on 12/04/18 08:53; Admin Dose 17 GM; Start 12/02/18 at 14:00 Insulin Glargine (Lantus) 22 units DAILY@2000 SC Last administered on 12/03/18at 21:19; Admin Dose 22 UNITS; Start 12/02/18 at 20:00 Furosemide (Lasix) 20 mg BID DIURETICS PO Last administered on 12/04/18at 06:23; Admin Dose 20 MG; Start 12/03/18 at 18:00 Prednisone (Prednisone) 20 mg DAILY PO Last administered on 12/04/18 09:02; Admin Dose 20 MG; Start 12/04/18 at 09:00; Stop 12/06/18 at 08:59 Doxycycline Hyclate (Vibramycin) 100 mg BID PO Last administered on 12/04/18 08:53; Admin Dose 100 MG; Start 12/03/18 at 21:00; Stop 12/10/18 at 20:59 LAY HOLLOWAY NP Dec 04, 2018 10:00
--- NOTE | 2018-12-04 14:35 | CONS ---
Date/Time of Note Date/Time of Note DATE: 12/04/18 TIME: 14:35 Assessment/Plan Assessment/Plan Assessment/Plan 1. acute kidney injury due to hemodynamics from CHF 2. acute decompensated diastolic CHF 3. Community acquired PNA 4. H/o HTN 5. H/o HL 6. H/o COPD Plan: BUN/Cr went upto 70/1.75,- stop lasix due to worsenign BUN/Cr and concern about diuresis Renal US showed Small right kidney. No evidence of hydronephrosis. IV abx for PNA, renally dose all abx and monitor electrolytes will follow up Result Diagram: 12/04/18 0532 12/04/18 0532 Results 24hrs Laboratory Tests Test 12/03/18 17:05 12/03/18 20:27 12/04/18 02:08 12/04/18 05:32 Bedside Glucose 269 H 220 114 White Blood Count 11.1 H Red Blood Count 4.53 L Hemoglobin 13.8 L Hematocrit 40.8 L Mean Corpuscular Volume 90.1 Mean Corpuscular 30.5 Hemoglobin Mean Corpuscular 33.8 Hemoglobin Concent Red Cell Distribution 13.4 Width Platelet Count 202 Mean Platelet Volume 11.5 H Immature Granulocytes % 0.500 H Neutrophils % 66.0 Lymphocytes % 24.9 Monocytes % 8.1 Eosinophils % 0.4 Basophils % 0.1 Nucleated Red Blood 0.0 Cells % Immature Granulocytes # 0.050 H Neutrophils # 7.3 Lymphocytes # 2.8 Monocytes # 0.9 Eosinophils # 0.0 Basophils # 0.0 Nucleated Red Blood 0.0 Cells # Sodium Level 138 Potassium Level 4.2 Chloride Level 97 Carbon Dioxide Level 30 Anion Gap 11 Blood Urea Nitrogen 70 H Creatinine 1.75 H Est Glomerular Filtrat Rate mL/min Glucose Level 120 # Calcium Level 9.1 Test 12/04/18 07:18 12/04/18 11:39 Bedside Glucose 119 241 H Consultation Date/Type/Reason Admit Date/Time Dec 01, 2018 at 02:18 Initial Consult Date 12/03/18 Type of Consult NEPHROLOGY Requesting Provider: ALCON BOLAÑOS 24 HR Interval Summary Free Text/Dictation BUN/Cr went upto 70/1.75, Bp stable, afebrile Exam/Review of Systems Vital Signs Vitals Vital Signs Date Temp Pulse Resp B/P (MAP) Pulse Ox O2 O2 Flow FiO2 Time Delivery Rate 12/04/18 86 12:48 12/04/18 97.9 16 116/66 96 Room Air 11:15 (83) 12/04/18 3.0 07:45 12/04/18 21 01:16 Intake and Output 12/03/18 12/03/18 12/04/18 1515:00 23:00 07:00 IntakeIntake Total 950 ml 250 ml OutputOutput Total 1250 ml 700 ml BalanceBalance -300 ml -450 ml Exam Constitutional: alert ENMT: nl external ears & nose Neck: supple, non-tender, jvd Respiratory: crackles/rales, diminished breath sounds Cardiovascular: regular rate and rhythm, nl pulses Gastrointestinal: soft, non-tender Musculoskeletal: nl extremities to inspection, swelling Neurological: BOILER WATER TESTER II-XII intact, nl mental status, nl speech, nl strength Medications Medications Current Medications IV Flush (NS 3 ml) 3 ml PER PROTOCOL IV ; Start 12/01/18 at 03:30 Ondansetron HCl (Zofran Inj) 4 mg Q6H PRN IV NAUSEA AND/OR VOMITING; Start 12/01/18 at 03:30 Acetaminophen (Tylenol Tab) 650 mg Q6H PRN PO PAIN LEVEL 1-3 OR FEVER; Start 12/01/18 at 03:30 Acetaminophen/ Hydrocodone Bitart ([place] (5/325)) 1 tab Q6H PRN PO MODERATE PAIN LEVEL 4-6; Start 12/01/18 at 03:30 Acetaminophen/ Hydrocodone Bitart ([place] (5/325)) 2 tab Q6H PRN PO SEVERE PAIN LEVEL 7-10; Start 12/01/18 at 03:30 Ipratropium [place] (Atrovent 0.02% (Neb)) 0.5 mg Q2H RESP THERAPY PRN NEB SHORTNESS OF BREATH Last administered on 12/02/18at 11:25; Admin Dose 0.5 MG; Start 12/01/18 at 03:30 Levalbuterol (Xopenex Neb) 0.63 mg Q2H RESP THERAPY PRN HHN sob, wheezing Last administered on 12/02/18at 11:24; Admin Dose 0.63 MG; Start 12/01/18 at 03:30 Miscellaneous Information 1 ea NOTE XX ; Start 12/01/18 at 20:00 Metoprolol Tartrate (Lopressor) 25 mg BID PO Last administered on 12/04/18at 0 8:53; Admin Dose 25 MG; Start 12/02/18 at 10:00 Diagnostic Test (Pha) (Accu-Chek) 1 ea 02 XX Last administered on 12/04/18at 02:11; Admin Dose 1 EA; Start 12/03/18 at 02:00 Insulin Aspart (Novolog Insulin Pen) 7 unit WITH MEALS SC Last administered on 12/04/18at 11:44; Admin Dose 7 UNIT; Start 12/02/18 at 12:00 Insulin Aspart (Novolog Insulin Pen) NOVOLOG *MILD* ALGORITHM WITH MEALS BEDTIME SC Last administered on 12/04/18at 11:44; Admin Dose 3 UNIT; Start 12/02/18 at 12:00 Miscellaneous Information 1 ea NOTE XX ; Start 12/02/18 at 10:00 Glucose (Glutose) 15 gm Q15M PRN PO DECREASED GLUCOSE; Start 12/02/18 at 10:00 Glucose (Glutose) 22.5 gm Q15M PRN PO DECREASED GLUCOSE; Start 12/02/18 at 10:00 Dextrose (D50w Syringe) 25 ml Q15M PRN IV DECREASED GLUCOSE; Start 12/02/18 at 10:00 Dextrose (D50w Syringe) 50 ml Q15M PRN IV DECREASED GLUCOSE; Start 12/02/18 at 10:00 Glucagon (Glucagen) 1 mg Q15M PRN IM DECREASED GLUCOSE; Start 12/02/18 at 10:00 Glucose (Glutose) 15 gm Q15M PRN BUCCAL DECREASED GLUCOSE; Start 12/02/18 at 10:00 Heparin Sodium (Porcine) (Heparin (5000 Units/1ml)) 5,000 unit BID SC Last administered on 12/04/18at 09:00; Admin Dose 5,000 UNIT; Start 12/03/18 at 09:00 Docusate Sodium (Colace) 200 mg BID PO Last administered on 12/04/18at 08:52; Admin Dose 200 MG; Start 12/02/18 at 14:00 Polyethylene Glycol (Miralax) 17 gm DAILY PO Last administered on 12/04/18at 08:53; Admin Dose 17 GM; Start 12/02/18 at 14:00 Insulin Glargine (Lantus) 22 units DAILY@2000 SC Last administered on 12/03/18at 21:19; Admin Dose 22 UNITS; Start 12/02/18 at 20:00 Furosemide (Lasix) 20 mg BID DIURETICS PO Last administered on 12/04/18at 06:23; Admin Dose 20 MG; Start 12/03/18 at 18:00 Prednisone (Prednisone) 20 mg DAILY PO Last administered on 12/04/18at 09:02; Admin Dose 20 MG; Start 12/04/18 at 09:00; Stop 12/06/18 at 08:59 Doxycycline Hyclate (Vibramycin) 100 mg BID PO Last administered on 12/04/18at 08:53; Admin Dose 100 MG; Start 12/03/18 at 21:00; Stop 12/10/18 at 20:59 LANCE SHAIKH MD Dec 04, 2018 14:35
[2018-12-04] MEDS: INSULIN GLARGINE [LANTus] (100 UNITS/ML) SYG SC SCH (20:10)
[2018-12-05] VITALS (12 sets, daily range): BP systolic 102–133; BP diastolic 64–75; PULSE 72–86; RESP 18–20
[2018-12-05] MEDS: ACCU-CHEK XX SCH (02:48)
[2018-12-05] MEDS: HEPARIN 5,000 UNIT/1 ML VIAL SC SCH ×2 (07:50→20:56)
[2018-12-05] MEDS: INSULIN ASPART [NOVOLOG] 3 ML PEN SC SCH ×7 (07:50→20:56)
[2018-12-05] MEDS: DOXYCYCLINE 100 MG TAB PO SCH ×2 (08:30→20:47)
[2018-12-05] MEDS: POLYETHYLENE GLYCOL 17 GM PACKET PO SCH (08:30)
[2018-12-05] MEDS: METOPROLOL 25 MG TAB PO SCH ×2 (08:30→20:47)
[2018-12-05] MEDS: DOCUSATE SODIUM 100 MG CAP PO SCH ×2 (08:30→20:47)
[2018-12-05] MEDS: predniSONE 20 MG TAB PO SCH (08:30)
--- NOTE | 2018-12-05 10:24 | PN ---
Date/Time of Note Date/Time of Note DATE: 12/05/18 TIME: 10:22 Assessment/Plan VTE Prophylaxis Risk score (from Ns)>0 risk: 7 SCD applied (from Ns): Yes Pharmacological prophylaxis: heparin Lines/Catheters IV Catheter Type (from [facility]): Peripheral IV Urinary Cath still in place: No Assessment/Plan Hospital Course SUBJECTIVE: No acute episodes. Having mild weakness with ambulation. OBJECTIVE: Vital signs-see below PHYSICAL EXAM: Constitutional:Elderly male, lying in bed comfortably. Psych: nl mood/affect, no complaints Head: atraumatic, normocephalic Eyes: nl conjunctiva, nl sclera ENMT: mucosa pink and moist, nl external ears & nose Neck: non-tender, supple Respiratory: Diminished bibasilar. Otherwise chest clear to auscultation. No wheezing. Cardiovascular:+JVD. nl pulses, regular rate and rhythm Gastrointestinal: non-tender, soft, bowel sounds active in all 4 quadrants. Musculoskeletal/extremities: nl extremities to inspection, motor strength equal bilaterally, no focal deficit. Normal pulses,no cyanosis, no edema. Neurological: Alert oriented 3,nl speech, nl strength Skin: nl turgor ASSESSMENT/PLAN:73-year-old male with type 2 diabetes, chronic kidney disease, presented with respiratory distress, found to have acute diastolic congestive h eart failure. 1. Acute decompensated diastolic congestive heart failure. -Clinically improved. -De-escalate Lasix to 20 mg daily. Continue beta-blockers. -TTE noted with EF 45%. 2. Community-acquired pneumonia -Symptoms resolved. Continue doxycycline with stop date placed. 3. Type 2 diabetes -Stable. Continue insulin. -Carbohydrate controlled diet. 4. Acute kidney injury on CKD. -MIGEULITO secondary to hemodynamic/diuretics/Nephrotoxins -Renal function started to improve. Will monitor and follow-up nephrology recommendations. DVT prophylaxis: heparin. PUD prophylaxis: Not indicated CODE STATUS: Full code Diet: Carbohydrate controlled Disposition: Repeat renal function in a.m. PT eval and treat. DC planning once creatinine with not much fluctuation. Patient was seen in collaboration with Result Diagram: 12/05/18 0510 12/05/18 0510 Results 24hrs Laboratory Tests Test 12/04/18 11:39 12/04/18 16:46 12/04/18 20:03 12/05/18 01:59 Bedside Glucose 241 H 136 287 H 148 Test 12/05/18 05:10 12/05/18 07:40 White Blood Count 12.4 H Red Blood Count 4.62 L Hemoglobin 14.1 Hematocrit 42.1 Mean Corpuscular Volume 91.1 Mean Corpuscular 30.5 Hemoglobin Mean Corpuscular 33.5 Hemoglobin Concent Red Cell Distribution 13.2 Width Platelet Count 216 Mean Platelet Volume 11.7 H Immature Granulocytes % 0.400 Neutrophils % 70.9 Lymphocytes % 19.8 Monocytes % 8.4 Eosinophils % 0.4 Basophils % 0.1 Nucleated Red Blood 0.0 Cells % Immature Granulocytes # 0.050 H Neutrophils # 8.8 H Lymphocytes # 2.5 Monocytes # 1.0 H Eosinophils # 0.1 Basophils # 0.0 Nucleated Red Blood 0.0 Cells # Sodium Level 138 Potassium Level 4.9 Chloride Level 99 Carbon Dioxide Level 29 Anion Gap 10 Blood Urea Nitrogen 74 H Creatinine 1.69 H Est Glomerular Filtrat Rate mL/min Glucose Level 160 Calcium Level 9.6 Bedside Glucose 148 Exam/Review of Systems Vital Signs Vitals Vital Signs Date Temp Pulse Resp B/P (MAP) Pulse Ox O2 O2 Flow FiO2 Time Delivery Rate 12/05/18 81 09:24 12/05/18 98.5 20 125/72 96 Room Air 07:30 (89) 12/04/18 3.0 07:45 12/04/18 21 01:16 Intake and Output 12/04/18 12/04/18 12/05/18 1515:00 23:00 07:00 IntakeIntake Total 100 ml 780 ml 500 ml OutputOutput Total 900 ml 950 ml BalanceBalance 100 ml -120 ml -450 ml Medications Medications Current Medications IV Flush (NS 3 ml) 3 ml PER PROTOCOL IV ; Start 12/01/18 at 03:30 Ondansetron HCl (Zofran Inj) 4 mg Q6H PRN IV NAUSEA AND/OR VOMITING; Start 12/01/18 at 03:30 Acetaminophen (Tylenol Tab) 650 mg Q6H PRN PO PAIN LEVEL 1-3 OR FEVER; Start 12/01/18 at 03:30 Acetaminophen/ Hydrocodone Bitart ([place] (5/325)) 1 tab Q6H PRN PO MODERATE PAIN LEVEL 4-6; Start 12/01/18 at 03:30 Acetaminophen/ Hydrocodone Bitart ([place] (5/325)) 2 tab Q6H PRN PO SEVERE PAIN LEVEL 7-10; Start 12/01/18 at 03:30 Ipratropium [place] (Atrovent 0.02% (Neb)) 0.5 mg Q2H RESP THERAPY PRN NEB SHORTNESS OF BREATH Last administered on 12/02/18at 11:25; Admin Dose 0.5 MG; Start 12/01/18 at 03:30 Levalbuterol (Xopenex Neb) 0.63 mg Q2H RESP THERAPY PRN HHN sob, wheezing Last administered on 12/02/18at 11:24; Admin Dose 0.63 MG; Start 12/01/18 at 03:30 Miscellaneous Information 1 ea NOTE XX ; Start 12/01/18 at 20:00 Metoprolol Tartrate (Lopressor) 25 mg BID PO Last administered on 12/05/18at 08:30; Admin Dose 25 MG; Start 12/02/18 at 10:00 Diagnostic Test (Pha) (Accu-Chek) 1 ea 02 XX Last administered on 12/05/18at 02:48; Admin Dose 1 EA; Start 12/03/18 at 02:00 Insulin Aspart (Novolog Insulin Pen) 7 unit WITH MEALS SC Last administered on 12/05/18at 07:50; Admin Dose 7 UNIT; Start 12/02/18 at 12:00 Insulin Aspart (Novolog Insulin Pen) NOVOLOG *MILD* ALGORITHM WITH MEALS BEDTIME SC Last administered on 12/05/18at 07:50; Admin Dose 1 UNIT; Start 12/02/18 at 12:00 Miscellaneous Information 1 ea NOTE XX ; Start 12/02/18 at 10:00 Glucose (Glutose) 15 gm Q15M PRN PO DECREASED GLUCOSE; Start 12/02/18 at 10:00 Glucose (Glutose) 22.5 gm Q15M PRN PO DECREASED GLUCOSE; Start 12/02/18 at 10:00 Dextrose (D50w Syringe) 25 ml Q15M PRN IV DECREASED GLUCOSE; Start 12/02/18 at 10:00 Dextrose (D50w Syringe) 50 ml Q15M PRN IV DECREASED GLUCOSE; Start 12/02/18 at 10:00 Glucagon (Glucagen) 1 mg Q15M PRN IM DECREASED GLUCOSE; Start 12/02/18 at 10:00 Glucose (Glutose) 15 gm Q15M PRN BUCCAL DECREASED GLUCOSE; Start 12/02/18 at 10:00 Heparin Sodium (Porcine) (Heparin (5000 Units/1ml)) 5,000 unit BID SC Last administered on 12/05/18at 07:50; Admin Dose 5,000 UNIT; Start 12/03/18 at 09:00 Docusate Sodium (Colace) 200 mg BID PO Last administered on 12/05/18 08:30; Admin Dose 200 MG; Start 12/02/18 at 14:00 Polyethylene Glycol (Miralax) 17 gm DAILY PO Last administered on 12/05/18 08:30; Admin Dose 17 GM; Start 12/02/18 at 14:00 Insulin Glargine (Lantus) 22 units DAILY@2000 SC Last administered on 12/04/18at 20:10; Admin Dose 22 UNITS; Start 12/02/18 at 20:00 Doxycycline Hyclate (Vibramycin) 100 mg BID PO Last administered on 12/05/18 08:30; Admin Dose 100 MG; Start 12/03/18 at 21:00; Stop 12/10/18 at 20:59 Furosemide (Lasix) 20 mg DAILY PO ; Start 12/05/18 at 10:00 LAY HOLLOWAY NP Dec 05, 2018 10:24
--- NOTE | 2018-12-05 10:26 | CONS ---
Date/Time of Note Date/Time of Note DATE: 12/05/18 TIME: 10:26 Assessment/Plan Assessment/Plan Assessment/Plan 1. acute kidney injury due to hemodynamics from CHF 2. acute decompensated diastolic CHF 3. Community acquired PNA 4. H/o HTN 5. H/o HL 6. H/o COPD Plan: BUN/Cr went upto 74/1.69,- stopped lasix yesterday due to worsenign BUN/Cr and concern about over diuresis, will albumin 25% 100ml IV Q 8 hr x 3 doses Renal US showed Small right kidney. No evidence of hydronephrosis. IV abx for PNA, renally dose all abx and monitor electrolytes will follow up Result Diagram: 12/05/18 0510 12/05/1810 Results 24hrs Laboratory Tests Test 12/04/18 11:39 12/04/18 16:46 12/04/18 20:03 12/05/18 01:59 Bedside Glucose 241 H 136 287 H 148 Test 12/05/18 05:10 12/05/18 07:40 White Blood Count 12.4 H Red Blood Count 4.62 L Hemoglobin 14.1 Hematocrit 42.1 Mean Corpuscular Volume 91.1 Mean Corpuscular 30.5 Hemoglobin Mean Corpuscular 33.5 Hemoglobin Concent Red Cell Distribution 13.2 Width Platelet Count 216 Mean Platelet Volume 11.7 H Immature Granulocytes % 0.400 Neutrophils % 70.9 Lymphocytes % 19.8 Monocytes % 8.4 Eosinophils % 0.4 Basophils % 0.1 Nucleated Red Blood 0.0 Cells % Immature Granulocytes # 0.050 H Neutrophils # 8.8 H Lymphocytes # 2.5 Monocytes # 1.0 H Eosinophils # 0.1 Basophils # 0.0 Nucleated Red Blood 0.0 Cells # Sodium Level 138 Potassium Level 4.9 Chloride Level 99 Carbon Dioxide Level 29 Anion Gap 10 Blood Urea Nitrogen 74 H Creatinine 1.69 H Est Glomerular Filtrat Rate mL/min Glucose Level 160 Calcium Level 9.6 Bedside Glucose 148 Consultation Date/Type/Reason Admit Date/Time Dec 01, 2018 at 02:18 Initial Consult Date 12/03/18 Type of Consult NEPHROLOGY Requesting Provider: ALCON BOLAÑOS Exam/Review of Systems Vital Signs Vitals Vital Signs Date Temp Pulse Resp B/P (MAP) Pulse Ox O2 O2 Flow FiO2 Time Delivery Rate 12/05/18 81 09:24 12/05/18 98.5 20 125/72 96 Room Air 07:30 (89) 12/04/18 3.0 07:45 12/04/18 21 01:16 Intake and Output 12/04/18 12/04/18 12/05/18 1414:59 22:59 06:59 IntakeIntake Total 100 ml 780 ml 500 ml OutputOutput Total 900 ml 950 ml BalanceBalance 100 ml -120 ml -450 ml Exam Constitutional: alert ENMT: nl external ears & nose Neck: supple, non-tender, jvd Respiratory: crackles/rales, diminished breath sounds Cardiovascular: regular rate and rhythm, nl pulses Gastrointestinal: soft, non-tender Musculoskeletal: nl extremities to inspection, swelling Neurological: Non focal Medications Medications Current Medications IV Flush (NS 3 ml) 3 ml PER PROTOCOL IV ; Start 12/01/18 at 03:30 Ondansetron HCl (Zofran Inj) 4 mg Q6H PRN IV NAUSEA AND/OR VOMITING; Start 12/01/18 at 03:30 Acetaminophen (Tylenol Tab) 650 mg Q6H PRN PO PAIN LEVEL 1-3 OR FEVER; Start 12/01/18 at 03:30 Acetaminophen/ Hydrocodone Bitart ([place] (5/325)) 1 tab Q6H PRN PO MODERATE PAIN LEVEL 4-6; Start 12/01/18 at 03:30 Acetaminophen/ Hydrocodone Bitart ([place] (5/325)) 2 tab Q6H PRN PO SEVERE PAIN LEVEL 7-10; Start 12/01/18 at 03:30 Ipratropium [place] (Atrovent 0.02% (Neb)) 0.5 mg Q2H RESP THERAPY PRN NEB SHORTNESS OF BREATH Last administered on 12/02/18at 11:25; Admin Dose 0.5 MG; Start 12/01/18 at 03:30 Levalbuterol (Xopenex Neb) 0.63 mg Q2H RESP THERAPY PRN HHN sob, wheezing Last administered on 12/02/18at 11:24; Admin Dose 0.63 MG; Start 12/01/18 at 03:30 Miscellaneous Information 1 ea NOTE XX ; Start 12/01/18 at 20:00 Metoprolol Tartrate (Lopressor) 25 mg BID PO Last administered on 12/05/18 08:30; Admin Dose 25 MG; Start 12/02/18 at 10:00 Diagnostic Test (Pha) (Accu-Chek) 1 ea 02 XX Last administered on 12/05/18 02:48; Admin Dose 1 EA; Start 12/03/18 at 02:00 Insulin Aspart (Novolog Insulin Pen) 7 unit WITH MEALS SC Last administered on 12/05/18 07:50; Admin Dose 7 UNIT; Start 12/02/18 at 12:00 Insulin Aspart (Novolog Insulin Pen) NOVOLOG *MILD* ALGORITHM WITH MEALS BEDTIME SC Last administered on 12/05/18 07:50; Admin Dose 1 UNIT; Start 12/02/18 at 12:00 Miscellaneous Information 1 ea NOTE XX ; Start 12/02/18 at 10:00 Glucose (Glutose) 15 gm Q15M PRN PO DECREASED GLUCOSE; Start 12/02/18 at 10:00 Glucose (Glutose) 22.5 gm Q15M PRN PO DECREASED GLUCOSE; Start 12/02/18 at 10:00 Dextrose (D50w Syringe) 25 ml Q15M PRN IV DECREASED GLUCOSE; Start 12/02/18 at 10:00 Dextrose (D50w Syringe) 50 ml Q15M PRN IV DECREASED GLUCOSE; Start 12/02/18 at 10:00 Glucagon (Glucagen) 1 mg Q15M PRN IM DECREASED GLUCOSE; Start 12/02/18 at 10:00 Glucose (Glutose) 15 gm Q15M PRN BUCCAL DECREASED GLUCOSE; Start 12/02/18 at 10:00 Heparin Sodium (Porcine) (Heparin (5000 Units/1ml)) 5,000 unit BID SC Last administered on 12/05/18 07:50; Admin Dose 5,000 UNIT; Start 12/03/18 at 09:00 Docusate Sodium (Colace) 200 mg BID PO Last administered on 12/05/18 08:30; Admin Dose 200 MG; Start 12/02/18 at 14:00 Polyethylene Glycol (Miralax) 17 gm DAILY PO Last administered on 12/05/18 08:30; Admin Dose 17 GM; Start 12/02/18 at 14:00 Insulin Glargine (Lantus) 22 units DAILY@2000 SC Last administered on 12/04/18 20:10; Admin Dose 22 UNITS; Start 12/02/18 at 20:00 Doxycycline Hyclate (Vibramycin) 100 mg BID PO Last administered on 12/05/18at 08:30; Admin Dose 100 MG; Start 12/03/18 at 21:00; Stop 12/10/18 at 20:59 Furosemide (Lasix) 20 mg DAILY PO ; Start 12/05/18 at 10:00 LANCE SHAIKH MD Dec 05, 2018 10:26
[2018-12-05] MEDS ORDERED: ALBUMIN HUMAN 25% 100 ML IV SCH (10:30)
[2018-12-05] MEDS: FUROSEMIDE 20 MG TAB PO SCH (10:53)
[2018-12-05] MEDS: GUAIFENESIN/DM 5ML CUP PO PRN ×2 (12:40→17:06)
[2018-12-05] MEDS: INSULIN GLARGINE [LANTus] (100 UNITS/ML) SYG SC SCH (20:56)
[2018-12-06] VITALS (8 sets, daily range): BP systolic 107–137; BP diastolic 62–71; PULSE 68–85; RESP 18
[2018-12-06] MEDS: ACCU-CHEK XX SCH (02:59)
[2018-12-06] MEDS: GUAIFENESIN/DM 5ML CUP PO PRN ×2 (06:17→12:42)
[2018-12-06] MEDS: INSULIN ASPART [NOVOLOG] 3 ML PEN SC SCH ×4 (08:00→12:00)
[2018-12-06] MEDS: POLYETHYLENE GLYCOL 17 GM PACKET PO SCH (08:07)
[2018-12-06] MEDS: DOXYCYCLINE 100 MG TAB PO SCH (08:07)
[2018-12-06] MEDS: DOCUSATE SODIUM 100 MG CAP PO SCH (08:07)
[2018-12-06] MEDS: FUROSEMIDE 20 MG TAB PO SCH (08:08)
[2018-12-06] MEDS: METOPROLOL 25 MG TAB PO SCH (08:08)
[2018-12-06] MEDS: HEPARIN 5,000 UNIT/1 ML VIAL SC SCH (08:30)
--- NOTE | 2018-12-06 10:36 | PDOCDIS ---
Discharge Instructions CONDITION [id number] Patient Condition: [id number] Stable HOME CARE INSTRUCTIONS: [id number] Special Diet: [id number] Carb Controlled FOLLOW UP/APPOINTMENTS Follow-up Plan Follow-up with primary care physician in 1 week. Repeat creatinine level in 1 week. LAY HOLLOWAY NP Dec 06, 2018 10:36
[2018-12-06] MEDS ORDERED: METO-448 PO (10:41)
[2018-12-06] MEDS ORDERED: LAS20 PO (10:41)
[2018-12-06] MEDS ORDERED: DOCU-216 PO (10:41)
[2018-12-06] MEDS ORDERED: DOXY100T2 PO (10:41)
[2018-12-06] MEDS ORDERED: LANT3I SC (10:41)
--- NOTE | 2018-12-06 10:46 | DS ---
Date/Time of Note Date/Time of Note DATE: 12/06/18 TIME: 10:44 Discharge Summary Admission/Discharge Info Admit Date/Time Dec 01, 2018 at 02:18 Discharge Date/Time Discharge Diagnosis 1. Acute decompensated diastolic congestive heart failure. Stable 2. Community-acquired pneumonia. Stable 3. Type 2 diabetes 4. Acute kidney injury on CKD, baseline creatinine 1.4-1.7. Patient Condition: Stable Consults Dr. Darby, nephrology Procedures 11/30/2018. Chest x-ray. IMPRESSION: 1. Newly developed increased interstitial opacification / edema throughout the lungs, moderate in degree. Interstitial pneumonia is within the differential. 12/03/2018. Chest x-ray IMPRESSION: 1. Overall improved appearance of the lungs, with mild left basilar atelectasis/air space disease, otherwise clear. 12/04/2018. Renal ultrasound. MPRESSION: Small right kidney. No evidence of hydronephrosis. 12/01/2017. 2D echocardiogram. Conclusions Normal left ventricular cavity size. Normal left ventricular wall thickness. Mild left ventricular systolic dysfunction. Ejection fraction is visually estimated at 45 %. Abnormal Diastolic Function. Normal right ventricular size. Normal right ventricular systolic function. The left atrium is normal in size. The right atrium is normal in size. Mitral valve leaflets appear mildly thickened. Mild mitral annular calcification. Mild mitral valve regurgitation. No hemodynamically significant aortic stenosis by doppler. Aortic cusps appear mildly calcified. Mild aortic valve regurgitation. Normal appearance and function of the tricuspid valve with trace physiologic regurgitation. Normal pericardium with no significant pericardial effusion. Electronically Signed By: Deandre Bravo 01-Dec-2018 13:00:43 -0800 Patient Name: BECKIE ACEVEDO Study Date: 01-Dec-2018 [id number] Dictated By: DEANDRE BRAVO DO Signed By: DEANDRE BRAVO DO Hospital Course :73-year-old male with type 2 diabetes, chronic kidney disease, presented with respiratory distress, found to have acute diastolic congestive heart failure. Patient was treated with aggressive diuresis. He was given beta-blockers. Echocardiogram with preserved ejection fraction 45%. Patient's volume status stabilized with resolution of symptoms. He was also treated for community- acquired pneumonia with doxycycline. Patient was continued on insulin for underlying diabetes with hydration as he required. Hospitalization was noted for acute kidney injury secondary to CHF/diuretics. 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 Renal function was monitored closely and remained at baseline 1.4-1.7 without any much fluctuations. He was then continued on 20 mg Lasix daily dose. At this time, patient is feeling back to baseline. He is able to tolerate diet and activities well. He does not require any supplemental oxygen. Labs and vital signs stable. Patient is medically cleared for discharge with outpatient primary care follow-up with repeat renal function with BUN/creatinine level in 1 week. Approximately 60 m spent on coordinating the discharge on this patient. Patient was seen in collaboration with Dr. Gutiérrez. Home Meds Active Scripts Furosemide (Lasix) 20 Mg Tab, 20 MG PO DAILY, #30 TAB Prov:HOLLOWAY,LAY V. SKI BINDING FITTER AND REPAIRER 12/06/18 Docusate Sodium (Dok) 100 Mg Capsule, 100 MG PO DAILY, #30 CAP Prov:HOLLOWAY,LAY V. [employer] BINDING FITTER AND REPAIRER 12/06/18 Metoprolol Tartrate* (Lopressor*) 25 Mg Tab, 25 MG PO BID, #60 TAB Prov:HOLLOWAY,LAY V. [employer] BINDING FITTER AND REPAIRER 12/06/18 Doxycycline* (Vibramycin*) 100 Mg Tab, 100 MG PO BID, #9 TAB Prov:HOLLOWAY,LAY V. [employer] BINDING FITTER AND REPAIRER 12/06/18 Insulin Glargine* (Lantus*) 100 Unit/Ml Soln, 22 UNIT SC DAILY@20 for 30 Days, #1 VIAL #100 Lancets #100 test strips #100 32 gauge insulin pen needles Prov:HOLLOWAY,LAY V. [employer]I BINDING FITTER AND REPAIRER 12/06/18 Insulin Aspart* (Novolog Insulin Pen*) 100 Unit/Ml Soln, 2 UNIT SC WITH MEALS for 30 Days, #2 UNITS Prov:NINO RIVAS MD 09/17/17 Discontinued Scripts Ciprofloxacin Hcl* (Ciprofloxacin Hcl*) 500 Mg Tablet, 500 MG PO BID@06,18 for 32 Days, #64 TAB Prov:NINO RIVAS MD 09/17/17 Follow-up Plan Follow-up with primary care physician in 1 week. Repeat creatinine level in 1 week. Primary Care Provider Not On Staff Doctor Pending Labs Laboratory Tests Test 12/05/18 11:37 12/05/18 16:48 12/05/18 20:51 12/06/18 02:58 Bedside 234 180 264 90 Glucose mg/dL (70-220) mg/dL (70-220) mg/dL (70-220) mg/dL (70-220) Test 12/06/18 05:41 12/06/18 07:52 White Blood 11.0 Count 10^3/ul (4.8-10 .8) Red Blood 4.58 Count 10^6/ul (4.70-6 .10) Hemoglobin 13.8 g/dl (14.0-18.0 ) Hematocrit 41.5 % (42.0-52.0) Mean 90.6 Corpuscular fl (82.0-101.0) Volume Mean 30.1 Corpuscular pg (29.0-33.0) Hemoglobin Mean 33.3 Corpuscular g/dl (32.0-37.0 Hemoglobin Conc ) ent Red Cell 13.2 Distribution % (11.5-14.5) Width Platelet Count 210 10^3/UL (140-41 5) Mean Platelet 11.3 Volume fl (7.4-10.4) Immature 0.700 Granulocytes % % (0.001-0.429) Neutrophils % 70.8 % (39.0-77.0) Lymphocytes % 15.1 % (15.0-51.0) Monocytes % 12.0 % (0.0-11.0) Eosinophils % 1.2 % (0.0-7.0) Basophils % 0.2 % (0.0-2.0) Nucleated Red 0.0 Blood Cells % /100WBC (0.0-0. 0) Immature 0.080 Granulocytes # 10^3/ul (0.0-0. 031) Neutrophils # 7.8 10^3/ul (1.6-7. 5) Lymphocytes # 1.7 10^3/ul (0.8-2. 9) Monocytes # 1.3 10^3/ul (0.3-0. 9) Eosinophils # 0.1 10^3/ul (0.0-0. 5) Basophils # 0.0 10^3/ul (0.0-0. 1) Nucleated Red 0.0 Blood Cells # 10^3/ul (0.0-0. 0) Sodium Level 136 mmol/L (135-144 ) Potassium 4.6 Level mmol/L (3.5-5.1 ) Chloride Level 99 mmol/L (97-110) Carbon Dioxide 28 Level mmol/L (21-31) Anion Gap 9 (5-13) Blood Urea 73 mg/dl (7-20) Nitrogen Creatinine 1.62 mg/dl (0.61-1.2 4) Est Glomerular mL/min (>60) Filtrat Rate mL/min Glucose Level 104 mg/dl (70-220) Calcium Level 9.2 mg/dl (8.4-10.2 ) Bedside 107 Glucose mg/dL (70-220) LAY HOLLOWAY NP Dec 06, 2018 10:46
--- NOTE | 2018-12-06 11:25 | CONS ---
Date/Time of Note Date/Time of Note DATE: 12/06/18 TIME: 11:24 Assessment/Plan Assessment/Plan Assessment/Plan 1. acute kidney injury due to hemodynamics from CHF 2. acute decompensated diastolic CHF 3. Community acquired PNA 4. H/o HTN 5. H/o HL 6. H/o COPD Plan: BUN/Cr 73/1.62,- s/p Lasix 20mg IV x 1 yesteday, ok to d/c with PO lasix 20m daily Renal US showed Small right kidney. No evidence of hydronephrosis. IV abx for PNA, renally dose all abx and monitor electrolytes Follow up with me in clinic in 1-2 week upon discharge will follow up Result Diagram: 12/06/18 0541 12/06/18 0541 Results 24hrs Laboratory Tests Test 12/05/18 11:37 12/05/18 16:48 12/05/18 20:51 12/06/18 02:58 Bedside Glucose 234 H 180 264 H 90 Test 12/06/18 05:41 12/06/18 07:52 White Blood Count 11.0 H Red Blood Count 4.58 L Hemoglobin 13.8 L Hematocrit 41.5 L Mean Corpuscular Volume 90.6 Mean Corpuscular 30.1 Hemoglobin Mean Corpuscular 33.3 Hemoglobin Concent Red Cell Distribution 13.2 Width Platelet Count 210 Mean Platelet Volume 11.3 H Immature Granulocytes % 0.700 H Neutrophils % 70.8 Lymphocytes % 15.1 Monocytes % 12.0 H Eosinophils % 1.2 Basophils % 0.2 Nucleated Red Blood 0.0 Cells % Immature Granulocytes # 0.080 H Neutrophils # 7.8 H Lymphocytes # 1.7 Monocytes # 1.3 H Eosinophils # 0.1 Basophils # 0.0 Nucleated Red Blood 0.0 Cells # Sodium Level 136 Potassium Level 4.6 Chloride Level 99 Carbon Dioxide Level 28 Anion Gap 9 Blood Urea Nitrogen 73 H Creatinine 1.62 H Est Glomerular Filtrat Rate mL/min Glucose Level 104 # Calcium Level 9.2 Bedside Glucose 107 Consultation Date/Type/Reason Admit Date/Time Dec 01, 2018 at 02:18 Initial Consult Date 12/03/18 Type of Consult NEPHROLOGY Requesting Provider: ALCON BOLAÑOS Exam/Review of Systems Vital Signs Vitals Vital Signs Date Temp Pulse Resp B/P (MAP) Pulse Ox O2 O2 Flow FiO2 Time Delivery Rate 12/06/18 98.7 76 18 107/71 98 11:22 (83) 12/06/18 3.0 08:06 12/06/18 Room Air 04:00 12/04/18 21 01:16 Intake and Output 12/05/18 12/05/18 12/06/18 1515:00 23:00 07:00 IntakeIntake Total 1330 ml 700 ml OutputOutput Total 200 ml 600 ml BalanceBalance 1130 ml 100 ml Exam Constitutional: alert ENMT: nl external ears & nose Neck: supple, non-tender, jvd Respiratory: crackles/rales, diminished breath sounds Cardiovascular: regular rate and rhythm, nl pulses Gastrointestinal: soft, non-tender Musculoskeletal: nl extremities to inspection, swelling Neurological: SENIOR SOFTWARE 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 II-XII intact, nl mental status, nl speech, nl strength Medications Medications Current Medications IV Flush (NS 3 ml) 3 ml PER PROTOCOL IV ; Start 12/01/18 at 03:30 Ondansetron HCl (Zofran Inj) 4 mg Q6H PRN IV NAUSEA AND/OR VOMITING; Start 12/01/18 at 03:30 Acetaminophen (Tylenol Tab) 650 mg Q6H PRN PO PAIN LEVEL 1-3 OR FEVER; Start 12/01/18 at 03:30 Acetaminophen/ Hydrocodone Bitart ([place] (5/325)) 1 tab Q6H PRN PO MODERATE PAIN LEVEL 4-6; Start 12/01/18 at 03:30 Acetaminophen/ Hydrocodone Bitart ([place] (5/325)) 2 tab Q6H PRN PO SEVERE PAIN LEVEL 7-10; Start 12/01/18 at 03:30 Ipratropium [place] (Atrovent 0.02% (Neb)) 0.5 mg Q2H RESP THERAPY PRN NEB SHORTNESS OF BREATH Last administered on 12/02/18at 11:25; Admin Dose 0.5 MG; Start 12/01/18 at 03:30 Levalbuterol (Xopenex Neb) 0.63 mg Q2H RESP THERAPY PRN HHN sob, wheezing Last administered on 12/02/18at 11:24; Admin Dose 0.63 MG; Start 12/01/18 at 03:30 Miscellaneous Information 1 ea NOTE XX ; Start 12/01/18 at 20:00 Metoprolol Tartrate (Lopressor) 25 mg BID PO Last administered on 12/06/18 08:08; Admin Dose 25 MG; Start 12/02/18 at 10:00 Diagnostic Test (Pha) (Accu-Chek) 1 ea 02 XX Last administered on 12/06/18at 02:59; Admin Dose 1 EA; Start 12/03/18 at 02:00 Insulin Aspart (Novolog Insulin Pen) 7 unit WITH MEALS SC Last administered on 12/06/18 08:04; Admin Dose 7 UNIT; Start 12/02/18 at 12:00 Insulin Aspart (Novolog Insulin Pen) NOVOLOG *MILD* ALGORITHM WITH MEALS BEDTIME SC Last administered on 12/05/18 20:56; Admin Dose 3 UNIT; Start 12/02/18 at 12:00 Miscellaneous Information 1 ea NOTE XX ; Start 12/02/18 at 10:00 Glucose (Glutose) 15 gm Q15M PRN PO DECREASED GLUCOSE; Start 12/02/18 at 10:00 Glucose (Glutose) 22.5 gm Q15M PRN PO DECREASED GLUCOSE; Start 12/02/18 at 10:00 Dextrose (D50w Syringe) 25 ml Q15M PRN IV DECREASED GLUCOSE; Start 12/02/18 at 10:00 Dextrose (D50w Syringe) 50 ml Q15M PRN IV DECREASED GLUCOSE; Start 12/02/18 at 10:00 Glucagon (Glucagen) 1 mg Q15M PRN IM DECREASED GLUCOSE; Start 12/02/18 at 10:00 Glucose (Glutose) 15 gm Q15M PRN BUCCAL DECREASED GLUCOSE; Start 12/02/18 at 10:00 Heparin Sodium (Porcine) (Heparin (5000 Units/1ml)) 5,000 unit BID SC Last administered on 12/06/18at 08:30; Admin Dose 5,000 UNIT; Start 12/03/18 at 09:00 Docusate Sodium (Colace) 200 mg BID PO Last administered on 12/06/18 08:07; Admin Dose 200 MG; Start 12/02/18 at 14:00 Insulin Glargine (Lantus) 22 units DAILY@2000 SC Last administered on 12/05/18 20:56; Admin Dose 22 UNITS; Start 12/02/18 at 20:00 Doxycycline Hyclate (Vibramycin) 100 mg BID PO Last administered on 12/06/18at 08:07; Admin Dose 100 MG; Start 12/03/18 at 21:00; Stop 12/10/18 at 20:59 Furosemide (Lasix) 20 mg DAILY PO Last administered on 12/06/18at 08:08; Admin Dose 20 MG; Start 12/05/18 at 10:00 Guaifenesin/ Dextromethorphan (Robitussin Dm Liquid Cup) 10 ml Q4H PRN PO cough Last administered on 12/06/18at 06:17; Admin Dose 10 ML; Start 12/05/18 at 12:33 LANCE SHAIKH MD Dec 06, 2018 11:25
== END 2018-12-06 16:45 | disposition home or self-care (01) | DRG 193 ==
LOC: E/R 21:20 → 6WM 12-01 02:18
PROVIDERS: ADMIT Internal Medicine; ATTEND Family Medicine
DX: J18.9 Pneumonia, unspecified organism (principal); I50.33 Acute on chronic diastolic (congestive) heart failure; I13.0 Hypertensive heart and chronic kidney disease with heart failure and stage 1 through stage 4 chronic kidney disease, or unspecified chronic kidney disease; N17.9 Acute kidney failure, unspecified; N18.9 Chronic kidney disease, unspecified; E11.22 Type 2 diabetes mellitus with diabetic chronic kidney disease; E11.65 Type 2 diabetes mellitus with hyperglycemia; I16.0 Hypertensive urgency
CPT/HCPCS: 36415; 71045; 76775; 80048; 80053; 80061; 81001; 81003; 82436; 82962; 83036; 83605; 83735; 83880; 83935; 84100; 84133; 84155; 84300; 84484; 85025; 85610; 85730; 93005; 93306; 94640; 94644; 94664; 96374; 96375; 97162; J0692; J1644; J1650; J1815; J1940; J1956; J2930; J3370; J7030; J7512